=== PATIENT | female | born 1935 | race Caucasian/White ===

== ENCOUNTER 2016-09-13 21:23 | Observation (INO) ==
--- NOTE | 2016-09-13 21:37 | Emergency Department Note ---
Disposition Clinical Impression: CAD (coronary artery disease), CHF (congestive heart failure), Diabetes, CKD ( chronic kidney disease) stage 3, GFR 30-59 ml/min, Atrial fibrillation with RVR , Chest pain, Frail elderly, Obesity, Hypoxemia, History of COPD Disposition: Admitted As Inpatient Condition: Fair Referrals: NO,PCP [Non-Partnered Physician] - Forms: ED Satisfaction Letter General Adult HPI - General Chief complaint: ED Chest Pain Stated complaint: "/sob/chest pain" - History of Present Illness HPI Narrative: 81-year-old female reports to the ED via EMS, there is concern for shortness of breath. The patient does not usually wear oxygen, and on their arrival, they noticed the patient's oxygen saturation was 83%. They gave the patient a breathing treatment and placed her on oxygen, her oxygen level went up to 95%. The patient reportedly has a history of CAD, CHF, atrial fibrillation, and diabetes with a reported history of COPD however the patient is not being treated for lung problems. She was brought in from her personal residence. The patient describes midsternal chest pain that does not radiate. There is no history of syncope or recent injury. No leg swelling or pain. No coughing up blood. The patient denies any abdominal pain vomiting or diarrhea. There is no history of acute confusion. Patient denies any difficulty moving her arms or legs. There is no history of slurred speech or weakness or numbness in any of the arms or legs. No rashes or fevers or significant cough. There is no history of acute back pain or urinary symptoms. - Related Data Home Medications Medication Instructions Recorded Confirmed Aspirin Enteric Coated [Aspirin EC] 81 mg PO QAM 04/26/15 04/06/16 Carvedilol [Coreg] 6.25 mg PO BID 04/26/15 04/06/16 Famotidine [Pepcid] 20 mg PO BID 04/26/15 04/06/16 Furosemide [Lasix] 40 mg PO QAM 04/26/15 04/06/16 Losartan [Cozaar] 50 mg PO BID 04/26/15 04/06/16 Metformin [Glucophage] 500 mg PO QAM 04/26/15 04/06/16 Rivaroxaban [Xarelto] 15 mg PO QPM 04/26/15 04/06/16 SitaGLIPtin [Januvia] 25 mg PO HS 04/26/15 04/06/16 Insulin Glargine [Lantus] 25 unit SQ HS 06/17/15 04/06/16 Diphenoxylate/Atropine [Lomotil 1 tab PO QID PRN 01/06/16 04/06/16 2.5 mg/0.025 mg] Pravastatin Sodium [Pravachol] 80 mg PO QPM 01/06/16 04/06/16 Albuterol Sulfate [Albuterol 2 puff IH Q4HR PRN 04/06/16 04/06/16 Inhaler] Amlodipine [Norvasc] 5 mg PO DAILY 04/06/16 04/06/16 Gabapentin [Neurontin] 300 mg PO TID 04/06/16 04/06/16 Previous Rx's Medication Instructions Recorded Ondansetron [Zofran] 8 mg PO Q8HR PRN #10 tablet 08/24/16 Allergies Allergy/AdvReac Type Severity Reaction Status Date / Time Amoxicillin [From Augmentin] AdvReac Diarrhea Verified 06/17/15 19:53 ciprofloxacin [From Cipro] AdvReac Vomiting Verified 06/17/15 19:53 clavulanic acid AdvReac Diarrhea Verified 06/17/15 19:53 [From Augmentin] doxycycline AdvReac Diarrhea Verified 06/17/15 19:53 lansoprazole AdvReac Diarrhea Verified 06/17/15 19:53 Sulfa (Sulfonamide AdvReac Vomiting Verified 06/17/15 19:53 Antibiotics) sulfamethoxazole AdvReac Diarrhea Verified 06/17/15 19:53 [From Bactrim] trimethoprim AdvReac Diarrhea Verified 06/17/15 19:53 All systems ED: reviewed and negative except as stated. 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 history - Social History Smoking Status: Never smoker Smokeless Tobacco Status: No Alcohol use: Reports: none Drug use: Reports: none Course Vital Signs Temperature 97.2 F L 09/13/16 21:28 Pulse Rate 137 09/13/16 21:28 Respiratory Rate 16 09/13/16 21:28 Blood Pressure 134/104 09/13/16 21:28 O2 Sat by Pulse Oximetry 93 L 09/13/16 21:28 Temperature 97.2 F L 09/13/16 21:28 Pulse Rate 137 09/13/16 21:33 Respiratory Rate 16 09/13/16 21:33 Blood Pressure 111/75 09/13/16 21:33 O2 Sat by Pulse Oximetry 93 L 09/13/16 21:33 Oxygen Delivery Oxygen Delivery Nasal Cannula Medical Decision Making - MDM Narrative Medical decision making narrative: The patient is elderly with multiple comorbidities including CHF CAD diabetes, her initial oxygen saturations at home were 83% on room air. There is a report that patient has COPD, however her previous documentation does not list this on her recent admission, she is not taking medications for lung problems at home. The patient denies any usual oxygen requirement. The patient was given a nebulizer treatment per EMS and some oxygen, she has maintained her oxygen saturation the mid 90s here. Her EKG showed atrial fibrillation with rapid ventricular response with a rate in the 130s, in the ED her rate went down to 85 spontaneously and then bounced back up into the 110 range. Initially I was going to give her Cardizem, but on review with the hospitalist we decided Lopressor a single dose 5 mg and be appropriate. The patient is experiencing some nondescript chest pain she is currently on Xeralto, aspirin was ordered. Solu-Medrol was also ordered. The patient remains alert at this time, she appears to be stable. I have consulted with the hospitalist who has accepted the patient to their care. The patient is pending admission. - Lab Data Lab results reviewed: Yes I reviewed the patient's lab results. Result diagrams: 09/13/16 22:20 09/13/16 22:20 Lab Results 09/13/16 09/13/16 09/13/16 Range/Units 22:20 22:20 22:20 WBC 12.6 H (4.3-11.1) K/mcL RBC 4.18 (3.82-4.97) M/mcL Hgb 11.6 (11.5-15.4) g/dL Hct 36.0 (35.3-44.9) % MCV 86.1 (83.0-100.0) fL MCH 27.8 L (28.0-33.3) pg MCHC 32.2 (31.6-35.5) g/dL RDW 14.0 (11.5-14.5) % Plt Count 219 (140-400) K/mcL MPV 10.9 (9.4-12.4) fL Immature Gran % 0.7 (0-4) % Seg Neutrophils % 84.8 % Lymphocytes % 8.5 % Monocytes % 4.9 % Eosinophils % 0.8 % Basophils % 0.3 % Neutrophils # 10.6 H (1.6-8.9) K/mcL Lymphocytes # 1.1 (0.6-4.6) K/mcL Monocytes # 0.6 (0.0-1.3) K/mcL Eosinophils # 0.1 (0.0-0.6) K/mcL Basophils # 0.0 (0.0-0.2) K/mcL Immature Plt Fraction 7.0 H (1.1-6.1) % PT (9.4-12.1) Seconds INR APTT (26.0-36.0) Seconds Sodium 136 (136-145) mEq/L Potassium 4.3 (3.5-4.5) mEq/L Chloride 101 (98-109) mEq/L Carbon Dioxide 26 (19-29) mEq/L BUN 24 H (7-20) mg/dL Creatinine 1.45 H (0.57-1.11) mg/dL Est GFR ( Amer) 42 L (> 60) Est GFR (Non-Af Amer) 35 L (> 60) BUN/Creatinine Ratio 17 (6-26) Glucose 219 H (70-99) mg/dL Calculated Osmolality 293 (280-300) Lactic Acid 1.4 (0.5-2.2) mmol/L Calcium 9.2 (8.6-10.8) mg/dL Total Bilirubin 0.6 (0.2-1.2) mg/dL Direct Bilirubin 0.3 (0.0-0.5) mg/dL Indirect Bilirubin 0.3 (0.0-1.2) mg/dL AST 44 H (5-34) Units/L ALT 45 (0-55) Units/L Alkaline Phosphatase 87 (38-126) Units/L Troponin I (0-0.03) ng/mL C-Reactive Protein 7 H (Less than 5) mg/L B-Natriuretic Peptide (0-100) pg/mL Serum Total Protein 7.5 (6.0-8.3) g/dL Albumin 3.6 (3.5-5.0) g/dL Globulin 3.9 H (2.4-3.5) g/dL Albumin/Globulin Ratio 0.9 L (1.1-2.2) Beta-Hydroxybutyric Acd 0.28 H (0.02-0.27) mmol/L 09/13/16 09/13/16 09/13/16 Range/Units 22:20 22:20 22:20 WBC (4.3-11.1) K/mcL RBC (3.82-4.97) M/mcL Hgb (11.5-15.4) g/dL Hct (35.3-44.9) % MCV (83.0-100.0) fL MCH (28.0-33.3) pg MCHC (31.6-35.5) g/dL RDW (11.5-14.5) % Plt Count (140-400) K/mcL MPV (9.4-12.4) fL Immature Gran % (0-4) % Seg Neutrophils % % Lymphocytes % % Monocytes % % Eosinophils % % Basophils % % Neutrophils # (1.6-8.9) K/mcL Lymphocytes # (0.6-4.6) K/mcL Monocytes # (0.0-1.3) K/mcL Eosinophils # (0.0-0.6) K/mcL Basophils # (0.0-0.2) K/mcL Immature Plt Fraction (1.1-6.1) % PT 19.0 H (9.4-12.1) Seconds INR 1.7 APTT 37.4 H (26.0-36.0) Seconds Sodium (136-145) mEq/L Potassium (3.5-4.5) mEq/L Chloride (98-109) mEq/L Carbon Dioxide (19-29) mEq/L BUN (7-20) mg/dL Creatinine (0.57-1.11) mg/dL Est GFR ( Amer) (> 60) Est GFR (Non-Af Amer) (> 60) BUN/Creatinine Ratio (6-26) Glucose (70-99) mg/dL Calculated Osmolality (280-300) Lactic Acid (0.5-2.2) mmol/L Calcium (8.6-10.8) mg/dL Total Bilirubin (0.2-1.2) mg/dL Direct Bilirubin (0.0-0.5) mg/dL Indirect Bilirubin (0.0-1.2) mg/dL AST (5-34) Units/L ALT (0-55) Units/L Alkaline Phosphatase (38-126) Units/L Troponin I 0.01 (0-0.03) ng/mL C-Reactive Protein (Less than 5) mg/L B-Natriuretic Peptide 293 H (0-100) pg/mL Serum Total Protein (6.0-8.3) g/dL Albumin (3.5-5.0) g/dL Globulin (2.4-3.5) g/dL Albumin/Globulin Ratio (1.1-2.2) Beta-Hydroxybutyric Acd (0.02-0.27) mmol/L - Radiology Data Radiology results reviewed: Yes I reviewed the patient's radiology results.
[2016-09-13] MEDS ORDERED: Aspirin 325 MG TABLET PO ONE (22:08)
[2016-09-13 22:27] LABS: Basophils % 0.3 %; Eosinophils # 0.1 K/mcL (0.0-0.6); Eosinophils % 0.8 %; Hemoglobin 11.6 g/dL (11.5-15.4); Immature Granulocytes % 0.7 % (0-4); Lymphocytes # 1.1 K/mcL (0.6-4.6); Lymphocytes % 8.5 %; Mean Corpuscular HGB Conc 32.2 g/dL (31.6-35.5); Mean Corpuscular Hemoglobin 27.8 pg (28.0-33.3); Mean Corpuscular Volume 86.1 fL (83.0-100.0); Mean Platelet Volume 10.9 fL (9.4-12.4); Monocytes # 0.6 K/mcL (0.0-1.3); Monocytes % 4.9 %; Neutrophils # 10.6 K/mcL (1.6-8.9); Platelet Count 219 K/mcL (140-400); Red Blood Count 4.18 M/mcL (3.82-4.97); Segmented Neutrophils % 84.8 %
[2016-09-13 22:32] LABS: Beta-Hydroxybutyric Acid 0.28 mmol/L (0.02-0.27); INR 1.7
[2016-09-13 22:34] LABS: Activated Partial Thrombo Time 37.4 Seconds (26.0-36.0)
[2016-09-13 22:41] LABS: Albumin 3.6 g/dL (3.5-5.0); Albumin/Globulin Ratio 0.9 (1.1-2.2); Bilirubin,Direct 0.3 mg/dL (0.0-0.5); Bilirubin,Indirect 0.3 mg/dL (0.0-1.2); Bilirubin,Total 0.6 mg/dL (0.2-1.2); Calcium 9.2 mg/dL (8.6-10.8); Globulin 3.9 g/dL (2.4-3.5); Potassium 4.3 mEq/L (3.5-4.5); Total Protein 7.5 g/dL (6.0-8.3)
[2016-09-13] MEDS ORDERED: methylPREDNISolone 125 MG/2 ML VIAL IVP ONE (22:57)
[2016-09-13] MEDS ORDERED: *HR* Metoprolol 5 MG/5 ML VIAL IVP ONE (23:21)
[2016-09-14] MEDS ORDERED: Furosemide 40 MG/4 ML VIAL IVP ONE (02:34)
[2016-09-14] MEDS ORDERED: D5% in Water 1,000 ML IV PRN (02:36)
[2016-09-14] MEDS ORDERED: Dextrose Gel 15 GM PO PRN ×2 (02:36)
[2016-09-14] MEDS ORDERED: *HR* Dextrose 50 % in Water (Syg) 50 ML SYRINGE IVP PRN (02:36)
--- NOTE | 2016-09-14 02:55 | Internal Med History&Physical ---
<Kaitlin Motley - Last Filed: 09/14/16 02:56> Date of Encounter: 09/14/16 Time of Encounter: 02:00 Assessment and Plan (1) Acute CHF Current visit: Yes Status: Acute Patient came in with SOB that started earlier in the evening. When EMS arrived, her oxygen sat was in the 80s. last echo on 06/18/15 showed LVEF of 50% with normal LV systolic function, evidence of mild diastolic dysfunction of LV, mild LV hypertrophy, moderately enlarged atrial size. CXR showed cardiomegaly with evidence of acute CHF. hold BB echo pending. 40mg IV lasix BID 1.5L fluid restriction daily. strict I/O. Qualifiers: Congestive heart failure type: systolic Qualified Code(s): I50.21 - Acute systolic (congestive) heart failure (2) Atrial fibrillation with RVR Current visit: Yes Status: Acute Etiology likely due to acute CHF IV lopressor PRN for sustained HR > 120. HR now normal. Continue to monitor. check TSH. (3) Chest pain Current visit: Yes Status: Acute Etiology likely due to Afib RVR. Troponin negative. Continue to monitor Q6HR. Qualifiers: Chest pain type: other chest pain Qualified Code(s): R07.89 - Other chest pain; R07.8 - Other chest pain (4) History of COPD Current visit: Yes Status: Acute Oxygen PRN DuoNeb Q6HR PRN (5) CAD (coronary artery disease) Current visit: Yes Status: Chronic Continue ASA continue statin once home med list verified. Qualifiers: Coronary Disease-Associated Artery/Lesion type: bypass graft [place] vs. transplanted heart: unspecified whether [place] or transplanted heart Associated angina: angina presence unspecified Qualified Code(s): I25.810 - Atherosclerosis of coronary artery bypass graft(s) without angina pectoris (6) CKD (chronic kidney disease) stage 3, GFR 30-59 ml/min Current visit: Yes Status: Chronic stable. Cr measured at 1.45, which is slightly higher than baseline. Continue to monitor. (7) Diabetes Current visit: Yes Status: Chronic low dose sliding scale insulin ACHS accuchecks. Qualifiers: Diabetes mellitus type: type 2 Diabetes mellitus complication status: with unspecified complications Diabetes mellitus usp insulin use: unspecified usp insulin use status Qualified Code(s): E11.8 - Type 2 diabetes mellitus with unspecified complications (8) DVT prophylaxis Current visit: Yes Status: Acute continue Xarelto for Afib Internal Medicine - H&P: HPI Chief complaint: shortness of breath Admitted From: Emergency Dept Plans for Post Hospital Care: Home History of present illness: Ms. 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 Patient does not wear any oxygen at home. Patient came in with CC of SOB and chest pain that started earlier in the evening. SHe had 9/10 chest pain located mid chest with no radiation. The chest pain subsided after she came to the ED. Because of the chest pain and SOB, her daughter called the squad and she was brought to the ER. When the squad came, her oxygen sat was 83%. After breathing treatment and supplemental oxygen, her oxygen sat came back up to 95%. Patient is a poor historian and was by herself during examination. Patient denies nausea, vomiting , diarrhea, fever, chills. Social Hx: lives at home with daughter, is . Not a current smoker and has never smoked. Denies alcohol or illicit drug use. Past Med Surg Social Fam HX - Past Medical History Medical history: atrial fibrillation, CHF, COPD, coronary artery disease, dementia, diabetes, hypertension Psychiatric history: anxiety, bipolar, depression - Past Surgical History Surgical History: coronary bypass (CABG) - Social History Smoking Status: Never smoker Smokeless Tobacco Status: No Alcohol use: none Drug use: none Current living situation: With Family - Family History Paternal Hx Family Cardiac Disorders: Yes (HTN, CT,) Hx Family Respiratory Disorders: No Hx Family Cancer: Yes Hx Family GI Disorders: No Hx Family Endocrine Disorder: Yes (DM) Hx Family Neuromuscular Disorders: No Hx Family Neurologic Disorders: No Hx Family HEENT Disorders: No Hx Family Autoimmune Disorders: No Internal Medicine - H&P: Meds Aspirin Enteric Coated [Aspirin EC] 81 mg PO QAM 04/26/15 [History] Carvedilol [Coreg] 6.25 mg PO BID 04/26/15 [History] Famotidine [Pepcid] 20 mg PO BID 04/26/15 [History] Furosemide [Lasix] 40 mg PO QAM 04/26/15 [History] Losartan [Cozaar] 50 mg PO BID 04/26/15 [History] Metformin [Glucophage] 500 mg PO QAM 04/26/15 [History] Rivaroxaban [Xarelto] 15 mg PO QPM 04/26/15 [History] SitaGLIPtin [Januvia] 25 mg PO HS 04/26/15 [History] Insulin Glargine [Lantus] 25 unit SQ HS 06/17/15 [History] Diphenoxylate/Atropine [Lomotil 2.5 mg/0.025 mg] 1 tab PO QID PRN 01/06/16 [ History] Pravastatin Sodium [Pravachol] 80 mg PO QPM 01/06/16 [History] Albuterol Sulfate [Albuterol Inhaler] 2 puff IH Q4HR PRN 04/06/16 [History] Amlodipine [Norvasc] 5 mg PO DAILY 04/06/16 [History] Gabapentin [Neurontin] 300 mg PO TID 04/06/16 [History] Ondansetron [Zofran] 8 mg PO Q8HR PRN #10 tablet 08/24/16 [Rx] Allergies Amoxicillin [From Augmentin] Adverse Reaction (Verified 06/17/15 19:53) Diarrhea ciprofloxacin [From Cipro] Adverse Reaction (Verified 06/17/15 19:53) Vomiting clavulanic acid [From Augmentin] Adverse Reaction (Verified 06/17/15 19:53) Diarrhea doxycycline Adverse Reaction (Verified 06/17/15 19:53) Diarrhea lansoprazole Adverse Reaction (Verified 06/17/15 19:53) Diarrhea Sulfa (Sulfonamide Antibiotics) Adverse Reaction (Verified 06/17/15 19:53) Vomiting sulfamethoxazole [From Bactrim] Adverse Reaction (Verified 06/17/15 19:53) Diarrhea trimethoprim Adverse Reaction (Verified 06/17/15 19:53) Diarrhea - Constitutional Constitutional: falls, no anorexia, no chills, no fever(s) - Cardiovascular Cardiovascular ROS IM: chest pain, edema, palpitations, no diaphoresis, no syncope - Respiratory Respiratory: no hemoptysis - Gastrointestinal Gastrointestinal: no abdominal pain, no melena - Genitourinary Genitourinary: no hematuria - Neurological Neurological ROS: no abnormal speech - Psychiatric Psychiatric: no irritability - Constitutional Vitals: Temp Pulse Resp BP Pulse Ox 97.9 F 77 21 156/90 96 09/14/16 02:41 09/14/16 02:41 09/14/16 02:41 09/14/16 02:41 09/14/16 02:41 General appearance: Present: mild distress, A&O X 3, pleasant - Head Head exam: Present: atraumatic, normocephalic - Neck Neck exam general surgery: Present: supple, trachea midline - Respiratory Respiratory exam: Present: rales - Cardiovascular Cardiovascular exam: Present: irregular rhythm. Absent: JVD Additional comments: scar present down chest from CABG. - GI/Abdominal GI/Abdominal exam: Present: normal bowel sounds, tenderness Additional comments: scar present down lower abdomen. - Extremities Exam Extremities exam: Present: normal capillary refill, pedal edema (+2 pitting edema on right, +3 on left. All toes on left foot are amputated. ), radial pulses palpable and symetrical. Absent: cyanotic - Neurological Exam Neurological exam: Present: alert, oriented X3 Internal Med - H&P Results - Labs CBC & Chem 7: 09/13/16 22:20 09/13/16 22:20 - VTE Reasons for not Prescribing Prophylaxis: Not indicated-Anticoagulated or INR therapeutic <Beto Garcia - Last Filed: 09/14/16 07:44> Date of Encounter: 09/14/16 Assessment and Plan (1) Acute respiratory failure Current visit: Yes Status: Acute Secondary to acute exacerbation of CHF. Pt had O2 sats of 83% at presentation and improved with supplemental oxygen. Qualifiers: Respiratory failure complication: hypoxia Qualified Code(s): J96.01 - Acute respiratory failure with hypoxia Internal Medicine - H&P: HPI History of present illness: Ms. Low is a 81 year old female All Systems PM: A 10-system review of systems was performed and is negative for pertinent findings except as documented above in the HPI. - Constitutional Vitals: Temp Pulse Resp BP Pulse Ox 98.4 F 108 18 126/81 91 L 09/14/16 07:19 09/14/16 07:19 09/14/16 07:19 09/14/16 07:19 09/14/16 07:19 Internal Med - H&P Results - Labs CBC & Chem 7: 09/14/16 06:35 09/14/16 06:35 Labs: Short CBC 09/14/16 Range/Units 06:35 WBC 8.3 (4.3-11.1) K/mcL Hgb 11.8 (11.5-15.4) g/dL Hct 36.5 (35.3-44.9) % Plt Count 206 (140-400) K/mcL Neutrophils # 7.7 (1.6-8.9) K/mcL BMP 09/14/16 06:35 Sodium 137 Potassium 4.7 H Chloride 100 Carbon Dioxide 25 BUN 24 H Creatinine 1.57 H Glucose 292 H Calcium 9.6 Cardiac Enzymes 09/14/16 Range/Units 06:35 Troponin I 0.00 (0-0.03) ng/mL - Attending Attestation I examined this patient and my medical decision-making was reviewed with the WELFARE ADVISER/PA/Advanced Practice Nurse/Resident Physician. I agree with the documented findings, disposition and treatment plan as described except to the extent set forth below. 81 year old female with PMHx of Afib (on Xarelto), DM, CKD3, CAD (s/p CABG), COPD - presented with shortness of breath and chest pain. O2 sats at presentation to the ER was reportedly 83% on RA. O/E: Lower extremity edema, BNP is elevated, CXR is suggestive of CHF. EKG - A fib with RVR. Treat with IV lasix. Metoprolol IV PRN for RVR (Improved with Metoprolol IV). continue xarelto. supplemental O2. Consider Cardiology consultation. Check TSH
[2016-09-14] MEDS ORDERED: Ipratropium/Albuterol Neb 3 ML IH PRN (03:28)
[2016-09-14] MEDS ORDERED: Naloxone 0.4 MG/ML INJ IVP PRN (03:45)
[2016-09-14] MEDS ORDERED: Ondansetron 4 MG/2 ML VIAL IVP PRN (03:45)
[2016-09-14 07:19] LABS: Calcium 9.6 mg/dL (8.6-10.8); Magnesium 1.8 mg/dL (1.6-2.6); Potassium 4.7 mEq/L (3.5-4.5)
[2016-09-14 07:21] LABS: Basophils % 0.2 %; Eosinophils % 0.1 %; Hematocrit 36.5 % (35.3-44.9); Hemoglobin 11.8 g/dL (11.5-15.4); Immature Granulocytes % 0.7 % (0-4); Lymphocytes # 0.5 K/mcL (0.6-4.6); Lymphocytes % 5.9 %; Mean Corpuscular HGB Conc 32.3 g/dL (31.6-35.5); Mean Corpuscular Hemoglobin 27.8 pg (28.0-33.3); Mean Corpuscular Volume 85.9 fL (83.0-100.0); Monocytes # 0.1 K/mcL (0.0-1.3); Monocytes % 0.7 %; Neutrophils # 7.7 K/mcL (1.6-8.9); Platelet Count 206 K/mcL (140-400); Red Blood Count 4.25 M/mcL (3.82-4.97); Segmented Neutrophils % 92.4 %
[2016-09-14 07:41] LABS: Thyroid Stimulating Hormone 1.284 mcIU/mL (0.350-4.840)
[2016-09-14] MEDS: Aspirin Enteric Coated 81 MG Tablet PO SCH (08:26)
[2016-09-14] MEDS: Insulin LISPRO 300 UNITS/3 ML VIAL SQ SCH ×6 (08:27→21:16)
[2016-09-14] MEDS: Furosemide 20 MG/2 ML VIAL IVP SCH ×2 (08:28→21:15)
[2016-09-14 09:04] LABS: Bilirubin,Urine Negative (Negative); Blood,Urine Negative (Negative); Clarity,Urine Clear (Clear); Color,Urine Yellow (Yellow); Glucose,Urine (UA) >=1000 mg/dL (Normal); Ketones,Urine Negative (Negative); Leukocyte Esterase,Urine Negative (Negative); Nitrite,Urine Negative (Negative); Protein,Urine Trace mg/dL (Neg-Trace); Specific Gravity,Urine 1.011 (1.010-1.025); Urobilinogen,Urine Normal (Normal)
[2016-09-14 09:06] LABS: Bacteria,Urine None Seen per hpf (None-Few); Hyaline Casts,Urine None Seen per lpf (None-Few); Squamous Epithelial Cell,Urine Moderate per lpf (None-Few); WBC,Urine 0-3 per hpf (0-3)
--- NOTE | 2016-09-14 10:46 | Internal Med Progress Note ---
Date of Encounter: 09/14/16 Time of Encounter: 10:10 - Assessment and plan (1) Acute respiratory failure Current Visit: Yes Status: Acute Assessment and plan: Improved with supplemental O2 Continue O2 by TN Continuos pulse oximetry Qualifiers: Respiratory failure complication: hypoxia Qualified Code(s): J96.01 - Acute respiratory failure with hypoxia (2) Atrial fibrillation with RVR Current Visit: Yes Status: Acute Assessment and plan: Improved Resume home dose of Coreg, may need titration prn Lopressor 5mg IV prn HR >130 and sustaining BP is WNL Continue Xarelto (3) Chest pain Current Visit: Yes Status: Resolved Assessment and plan: Possibly secondary to Afib Troponin negative X3, EKG Afib with RVR Qualifiers: Chest pain type: other chest pain Qualified Code(s): R07.89 - Other chest pain; R07.8 - Other chest pain (4) History of COPD Current Visit: Yes Status: Chronic Assessment and plan: NO wheezing on exam Not in exacerbation Duonebs prn (5) CAD (coronary artery disease) Current Visit: Yes Status: Chronic Assessment and plan: Chronic, stable, resume home meds Qualifiers: Coronary Disease-Associated Artery/Lesion type: bypass graft [place] vs. transplanted heart: unspecified whether [place] or transplanted heart Associated angina: angina presence unspecified Qualified Code(s): I25.810 - Atherosclerosis of coronary artery bypass graft(s) without angina pectoris (6) Obesity Current Visit: Yes Status: Chronic Qualifiers: Obesity type: unspecified obesity type Obesity severity: unspecified obesity severity Qualified Code(s): E66.9 - Obesity, unspecified (7) CHF (congestive heart failure) Current Visit: Yes Status: Acute Assessment and plan: Acute on chronic Lower extremity edema, BNP is elevated, CXR is suggestive of CHF Possibly secondary to Afib with RVR Echo on 06/18/15 showed LVEF of 50% with normal LV systolic function, evidence of mild diastolic dysfunction of LV, mild LV hypertrophy, moderately enlarged atrial size. Follow repeat ECHO Continue lasix IV 20mg bid, increase prn, monitor renal function Daily weigh checks Strict intake and output monitoring Fluid restriction Continue home dose of Coreg, ARB, Statin Qualifiers: Congestive heart failure type: diastolic Congestive heart failure chronicity: acute on chronic Qualified Code(s): I50.33 - Acute on chronic diastolic (congestive) heart failure (8) CKD (chronic kidney disease) stage 3, GFR 30-59 ml/min Current Visit: Yes Status: Chronic Assessment and plan: CR and GFR stable (9) Diabetes Current Visit: Yes Status: Chronic Assessment and plan: Basal, Prandial and sliding scale insulin Qualifiers: Diabetes mellitus type: type 2 Diabetes mellitus complication status: with unspecified complications 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 exterminator insulin use: unspecified vermin exterminator insulin use status Qualified Code(s): E11.8 - Type 2 diabetes mellitus with unspecified complications - Subjective Interval history: 81 Y/O F [id number] Admitting diagnoses of acute on chronic CHF exacerbation, Afib with RVR, and chest pain Other PMH is significant for COPD, CAD, CKD III, DM, CHFpEF She is seen at bedside, denies new complains - Constitutional Vitals: Temp Pulse Resp BP Pulse Ox 98.4 F 108 18 126/81 93 L 09/14/16 07:19 09/14/16 07:19 09/14/16 07:19 09/14/16 07:19 09/14/16 08:36 General appearance: Present: mild distress, A&O X 3, pleasant - Head Head exam: Present: atraumatic, normocephalic - Eye Eye exam: Present: PERRL, conjuntiva pink, sclera anicteric Pupils: Present: PERRL - Neck Neck exam general surgery: Present: supple, trachea midline. Absent: lymphadenopathy - Respiratory Respiratory exam: Present: CTAB. Absent: rales, rhonchi - Cardiovascular Cardiovascular exam: Present: irregular rhythm, +S1, +S2, tachycardia - GI/Abdominal GI/Abdominal exam: Present: normal bowel sounds, soft, no peritoneal signs. Absent: distended, tenderness - Extremities Exam Extremities exam: Present: pedal edema (Trace pedal edema bilaterally) - Neurological Exam Neurological exam: Present: CN II-XII intact, oriented X3, no focal deficits. Absent: pronater drift, facial droop, speech deficit - Skin Skin exam: Present: dry, intact Internal Medicine: Result - Labs CBC & Chem 7: 09/14/16 06:35 09/14/16 06:35 Labs: Short CBC 09/14/16 Range/Units 06:35 WBC 8.3 (4.3-11.1) K/mcL Hgb 11.8 (11.5-15.4) g/dL Hct 36.5 (35.3-44.9) % Plt Count 206 (140-400) K/mcL Neutrophils # 7.7 (1.6-8.9) K/mcL BMP 09/14/16 06:35 Sodium 137 Potassium 4.7 H Chloride 100 Carbon Dioxide 25 BUN 24 H Creatinine 1.57 H Glucose 292 H Calcium 9.6 Cardiac Enzymes 09/14/16 Range/Units 06:35 Troponin I 0.00 (0-0.03) ng/mL Urine 09/14/16 Range/Units 08:50 Urine Color Yellow (Yellow) Urine Clarity Clear (Clear) Urine pH 6.0 (5.0-8.0) pH Units Ur Specific [place] 1.011 (1.010-1.025) Urine Protein Trace (Neg-Trace) mg/dL Urine Glucose (UA) >=1000 H (Normal) mg/dL - ABG Interpretation ABG results: PT/INR, D-dimer PT 19.0 Seconds (9.4-12.1) H 09/13/16 22:20 - VTE Reasons for not Prescribing Prophylaxis: Not indicated-Anticoagulated or INR therapeutic Consult Discharge Plan - Plan Referrals: Calixto Clinton DO [Primary Care Provider] - 09/21/16 1:30 pm (Please follow up as schedule....)
[2016-09-14] MEDS: Insulin DETEMIR 100 UNIT/ML X5UNITS SQ SCH ×2 (12:13→21:16)
[2016-09-14] MEDS: *HR* Metoprolol 5 MG/5 ML VIAL IVP PRN (12:13)
[2016-09-14] MEDS: *HR* Rivaroxaban 15 MG TABLET PO SCH (17:26)
--- NOTE | 2016-09-14 19:45 | Electrocardiograph Report ---
[address] [place] [address] Test Date: 2016-09-13 Pat Name: Narda Low Department: 105 Room: 2A55 Gender: F Hog Driver: : 1935 Requested By: Keo Lipscomb Order Number: [id number] Reading MD: Sin Otoole DO Measurements Intervals [place] Rate: 132 P: [place]: 0 QRS: 20 QRSD: 104 T: 97 QT: 319 QTc: 397 Interpretive Statements ATRIAL FIBRILLATION WITH RAPID VENTRICULAR RESPONSE POSSIBLE ANTERIOR MYOCARDIAL INFARCTION OF INDETERMINATE AGE POSSIBLE INFERIOR MYOCARDIAL INFARCTION, PROBABLY OLD Electronically Signed On 09-14-2016 19:42:49 EST by Sin Otoole DO
[2016-09-14] MEDS ORDERED: Famotidine 20 MG TABLET PO SCH (21:00)
[2016-09-14] MEDS: Famotidine 20 MG TABLET PO SCH (21:15)
[2016-09-14] MEDS: Acetaminophen 325 MG TABLET PO PRN (22:58)
[2016-09-15] MEDS: *HR* Metoprolol 5 MG/5 ML VIAL IVP PRN (00:14)
[2016-09-15 06:35] LABS: Basophils % 0.3 %; Eosinophils % 0.2 %; Hematocrit 33.6 % (35.3-44.9); Hemoglobin 10.9 g/dL (11.5-15.4); Immature Granulocytes % 0.8 % (0-4); Lymphocytes % 9.2 %; Mean Corpuscular HGB Conc 32.4 g/dL (31.6-35.5); Mean Corpuscular Hemoglobin 27.9 pg (28.0-33.3); Mean Corpuscular Volume 86.2 fL (83.0-100.0); Mean Platelet Volume 11.2 fL (9.4-12.4); Monocytes # 1.1 K/mcL (0.0-1.3); Monocytes % 6.8 %; Platelet Count 234 K/mcL (140-400); Red Cell Distribution Width 14.3 % (11.5-14.5); Segmented Neutrophils % 82.7 %
[2016-09-15 06:36] LABS: Basophils # 0.1 K/mcL (0.0-0.2); Lymphocytes # 1.4 K/mcL (0.6-4.6)
[2016-09-15 06:49] LABS: Calcium 9.7 mg/dL (8.6-10.8); Potassium 4.4 mEq/L (3.5-4.5)
--- NOTE | 2016-09-15 07:42 | ECHO - Doppler Report ---
Echocardiogram Name: Narda Low Date of Study: 09/14/2016 Date: 1935 Ht: 65.0 in Medical Record#: [id number] Age: 81 Wt: 198.0 lb Gender: Female BSA: 1.97 Order #: [id number] Location: [facility] Room #: [id number] Reading Physician: Denis Rivera MD, [facility] Second Steward: Heather Harris RDCS Ordering Physician: Kaitlin Motley DO Primary Physician: Calixto Clinton DO Indications: Acute CHF Impressions: Atrial fibrillation with RVR. Mild left ventricular systolic dysfunction, LVEF 45%. There is mild global LV hypokinesis. Indeterminate diastolic function due to atrial fibrillation. Normal right ventricular size and function. No significant valvular dysfunction. No evidence of pulmonary hypertension. Left Ventricular Wall Motion: Rest Echo Findings The apex, apical inferior, mid inferior, basal inferior, apical anterior, mid anterior, basal anterior, apical septal, mid inferior septal, basal inferior septal, apical lateral, mid anterior lateral, basal anterior lateral, mid anterior septal, mid inferior lateral, basal anterior septal and basal inferior lateral fisher were hypokinetic. Findings: Study Quality * Suboptimal echo windows. ECG Findings * Atrial fibrillation with RVR. Left Ventricle * Mild left ventricular systolic dysfunction, LVEF 45%. There is mild global LV hypokinesis. * Normal LV chamber size and wall thickness. * Indeterminate diastolic function due to atrial fibrillation. Right Ventricle * Normal right ventricular size and function. Left Atrium * Normal left atrial size. Right Atrium * Normal right atrial size. Aorta * Normally sized aortic root. Pericardium * There is no pericardial effusion present. IVC * The IVC is not well evaluated. Tricuspid Valve * Normal tricuspid valve structure. * No tricuspid stenosis. * Trace tricuspid regurgitation. * No evidence of pulmonary hypertension. Pulmonic Valve * Pulmonic valve is not well visualized. * No pulmonic stenosis. * Trace pulmonic regurgitation. Aortic Valve * Trileaflet aortic valve. * Mildly sclerotic aortic valve leaflets. * No aortic stenosis. * No aortic regurgitation. Mitral Valve * Mild mitral annular calcification * No mitral stenosis. * Trace mitral regurgitation. History Hypertension Diabetes Family History of CAD History of CAD/PTCA Coronary Artery Bypass Graft Congestive Heart Failure 06/18/2015 a Previous Echo was performed. Measurements: BP: 166/ 83 2D Normal Values RVIDd: 3.10 cm IVSd: .95 cm 0.6 - 1.0 cm LVIDd: 5.16 cm 3.7 - 5.6 cm LVPWd: 1.04 cm 0.6 - 1.1 cm LVIDs: 3.99 cm 1.5 - 3.6 cm AO: 3.00 cm < 4.0 cm LA volume: 46 Tricuspid Valve TV Regurg Peak Grad: 27.00mmHg TV Regurg Peak Ap: 2.60m/sec Updated by Denis Rivera MD, [facility] on 09/15/2016 7:34:20 AM electronically signed on 09/15/2016 7:35:22 AM with status of Final Wall Motion [place]: 1=Normal, 2=Hypokinesis, 3=Akinesis, 4=Dyskinesis, 5=Aneurysmal, 6=Hyperkinetic, X=Not Visualized (Blank)=Missing
[2016-09-15] MEDS: Insulin LISPRO 300 UNITS/3 ML VIAL SQ SCH ×7 (08:16→22:39)
[2016-09-15] MEDS: Furosemide 20 MG/2 ML VIAL IVP SCH ×2 (08:19→20:54)
[2016-09-15] MEDS: Aspirin Enteric Coated 81 MG Tablet PO SCH (08:19)
[2016-09-15] MEDS: Insulin DETEMIR 100 UNIT/ML X5UNITS SQ SCH ×2 (08:24→22:38)
--- NOTE | 2016-09-15 08:52 | Internal Med Progress Note ---
<LuisRaman moreno - Last Filed: 09/15/16 11:20> Date of Encounter: 09/15/16 Time of Encounter: 08:52 - Assessment and plan (1) Acute respiratory failure Current Visit: Yes Status: Acute Assessment and plan: 09/14/16 Improved with supplemental O2 C/ontinue O2 by ME Continuos pulse oximetry 09/15/16 Stable O2 sat 95% on room air Continue to treat CHF Qualifiers: Respiratory failure complication: hypoxia Qualified Code(s): J96.01 - Acute respiratory failure with hypoxia (2) Atrial fibrillation with RVR Current Visit: Yes Status: Acute Assessment and plan: 09/14/16 Improved Resume home dose of Coreg, may need titration prn Lopressor 5mg IV prn HR >130 and sustaining BP is WNL Continue Xarelto 09/15/16 Heart rate in 80s-90s on by mouth Coreg One dose Lopressor last night BP stable Continue Xarelto TSH normal (3) CHF (congestive heart failure) Current Visit: Yes Status: Acute Assessment and plan: 09/14/16 Acute on chronic Lower extremity edema, BNP is elevated, CXR is suggestive of CHF Possibly secondary to Afib with RVR Echo on 06/18/15 showed LVEF of 50% with normal LV systolic function, evidence of mild diastolic dysfunction of LV, mild LV hypertrophy, moderately enlarged atrial size. Follow repeat ECHO Continue lasix IV 20mg bid, increase prn, monitor renal function Daily weigh checks Strict intake and output monitoring Fluid restriction Continue home dose of Coreg, ARB, Statin 09/15/16 Repeat echo showed A. fib with RVR, mild LV systolic dysfunction, LVEF = 45%, indeterminant diastolic dysfunction due to A. fib Continue Lasix Creatinine this morning = 1.47 which is slightly above patient's baseline Continue strict I/O monitoring + fluid restriction Qualifiers: Congestive heart failure type: diastolic Congestive heart failure chronicity: acute on chronic Qualified Code(s): I50.33 - Acute on chronic diastolic (congestive) heart failure (4) CAD (coronary artery disease) Current Visit: Yes Status: Chronic Assessment and plan: 09/14/16 Chronic, stable, resume home meds Qualifiers: Coronary Disease-Associated Artery/Lesion type: bypass graft [place] vs. transplanted heart: unspecified whether [place] or transplanted heart Associated angina: angina presence unspecified Qualified Code(s): I25.810 - Atherosclerosis of coronary artery bypass graft(s) without angina pectoris (5) CKD (chronic kidney disease) stage 3, GFR 30-59 ml/min Current Visit: Yes Status: Chronic Assessment and plan: 09/14/16 CR and GFR stable (6) Diabetes Current Visit: Yes Status: Chronic Assessment and plan: 09/14/16 Basal, Prandial and sliding scale insulin 09/15/16 Blood glucose is stable Continue low-dose sliding scale Qualifiers: Diabetes mellitus type: type 2 Diabetes mellitus complication status: with unspecified complications Diabetes mellitus group home insulin use: unspecified group home insulin use status Qualified Code(s): E11.8 - Type 2 diabetes mellitus with unspecified complications (7) History of COPD Current Visit: Yes Status: Chronic Assessment and plan: 09/14/16 NO wheezing on exam Not in exacerbation Duonebs prn 09/15/16 Breathing much improved, O2 sats stable (8) Obesity Current Visit: Yes Status: Chronic Qualifiers: Obesity type: unspecified obesity type Obesity severity: unspecified obesity severity Qualified Code(s): E66.9 - Obesity, unspecified (9) Chest pain Current Visit: Yes Status: Resolved Assessment and plan: 09/14/16 Possibly secondary to Afib Troponin negative X3, EKG Afib with RVR 09/15/16 Resolved Qualifiers: Chest pain type: other chest pain Qualified Code(s): R07.89 - Other chest pain; R07.8 - Other chest pain - Subjective Interval history: Mrs. Low was seen and examined. She was sitting comfortably in bed and is still complaining of some shortness of breath although says this is much better relative to past couple of days. Denies other current complaints - Constitutional Vitals: Temp Pulse Resp BP Pulse Ox 97.6 F 82 16 142/81 99 09/15/16 07:22 09/15/16 07:22 09/15/16 07:22 09/15/16 07:22 09/15/16 07:22 General appearance: Present: mild distress, A&O X 3, pleasant - Head Head exam: Present: atraumatic, normocephalic - Eye Eye exam: Present: PERRL, conjuntiva pink, sclera anicteric - Neck Neck exam general surgery: Present: normal inspection, supple, trachea midline - Respiratory Respiratory exam: Present: CTAB, rales, rhonchi - Cardiovascular Cardiovascular exam: Present: irregular rhythm, +S1, +S2. Absent: diastolic murmur, gallop, rubs, tachycardia - GI/Abdominal GI/Abdominal exam: Present: soft. Absent: distended, tenderness - Extremities Exam Extremities exam: Present: pedal edema, warm Additional comments: trace pedal edema - Neurological Exam Neurological exam: Present: alert, CN II-XII intact, oriented X3, no focal deficits. Absent: pronater drift, facial droop, speech deficit - Skin Skin exam: Present: dry, intact Internal Medicine: Result - Labs CBC & Chem 7: 09/15/16 06:23 09/15/16 06:23 Labs: Short CBC 09/15/16 Range/Units 06:23 WBC 15.7 H D (4.3-11.1) K/mcL Hgb 10.9 L (11.5-15.4) g/dL Hct 33.6 L (35.3-44.9) % Plt Count 234 (140-400) K/mcL Neutrophils # 13.0 H (1.6-8.9) K/mcL BMP 09/15/16 06:23 Sodium 138 Potassium 4.4 Chloride 101 Carbon Dioxide 25 BUN 32 H Creatinine 1.47 H Glucose 219 H Calcium 9.7 Cardiac Enzymes 09/14/16 Range/Units 12:35 Troponin I 0.01 (0-0.03) ng/mL Urine 09/14/16 Range/Units 08:50 Urine Color Yellow (Yellow) Urine Clarity Clear (Clear) Urine pH 6.0 (5.0-8.0) pH Units Ur Specific [place] 1.011 (1.010-1.025) Urine Protein Trace (Neg-Trace) mg/dL Urine Glucose (UA) >=1000 H (Normal) mg/dL - ABG Interpretation ABG results: PT/INR, D-dimer PT 19.0 Seconds (9.4-12.1) H 09/13/16 22:20 - VTE Reasons for not Prescribing Prophylaxis: Not indicated-Anticoagulated or INR therapeutic Consult Discharge Plan - Plan Referrals: Calixto Clinton DO [Primary Care Provider] - 09/21/16 1:30 pm (Please follow up as schedule....) <Jerrell Rene - Last Filed: 09/15/16 16:07> Date of Encounter: 09/15/16 - Constitutional Vitals: Temp Pulse Resp BP Pulse Ox 97.5 F L 122 18 138/76 95 09/15/16 15:32 09/15/16 15:32 09/15/16 15:32 09/15/16 15:32 09/15/16 15:32 Internal Medicine: Result - Labs CBC & Chem 7: 09/15/16 06:23 09/15/16 06:23 Labs: Short CBC 09/15/16 Range/Units 06:23 WBC 15.7 H D (4.3-11.1) K/mcL Hgb 10.9 L (11.5-15.4) g/dL Hct 33.6 L (35.3-44.9) % Plt Count 234 (140-400) K/mcL Neutrophils # 13.0 H (1.6-8.9) K/mcL BMP 09/15/16 06:23 Sodium 138 Potassium 4.4 Chloride 101 Carbon Dioxide 25 BUN 32 H Creatinine 1.47 H Glucose 219 H Calcium 9.7 - ABG Interpretation ABG results: PT/INR, D-dimer PT 19.0 Seconds (9.4-12.1) H 09/13/16 22:20 - Attending Attestation Acute respiratory failure secondary to acute systolic CHF exacerbation exacerbated by atrial fibrillation with rapid ventricular response Increased dose of carvedilol from 6.25 up to 12.5 mg twice a day. Continue Lopressor IV as needed 5 mg every 5 minutes 3 doses for a heart rate of more than 130 Continue IV Lasix, may discharge in the morning if stable Continue Xarelto I examined this patient and my medical decision-making was reviewed with the [facility]/PA/Advanced Practice Nurse/Resident Physician. I agree with the documented findings, disposition and treatment plan as described except to the extent set forth below.
[2016-09-15] MEDS ORDERED: *HR* Metoprolol 5 MG/5 ML VIAL IVP PRN (16:01)
[2016-09-15] MEDS: *HR* Rivaroxaban 15 MG TABLET PO SCH (17:35)
[2016-09-15] MEDS: Famotidine 20 MG TABLET PO SCH (20:53)
[2016-09-15] MEDS: Acetaminophen 325 MG TABLET PO PRN (20:53)
[2016-09-16 07:05] LABS: Hematocrit 34.7 % (35.3-44.9); Hemoglobin 10.9 g/dL (11.5-15.4); Mean Corpuscular HGB Conc 31.4 g/dL (31.6-35.5); Mean Corpuscular Hemoglobin 28.7 pg (28.0-33.3); Mean Corpuscular Volume 91.3 fL (83.0-100.0); Platelet Count 171 K/mcL (140-400); Red Cell Distribution Width 14.7 % (11.5-14.5)
[2016-09-16 07:21] LABS: Calcium 9.6 mg/dL (8.6-10.8); Potassium 3.8 mEq/L (3.5-4.5)
[2016-09-16] MEDS: Insulin LISPRO 300 UNITS/3 ML VIAL SQ SCH ×4 (08:07→11:40)
[2016-09-16] MEDS: Furosemide 20 MG/2 ML VIAL IVP SCH (08:08)
[2016-09-16] MEDS: Aspirin Enteric Coated 81 MG Tablet PO SCH (08:08)
[2016-09-16] MEDS: Insulin DETEMIR 100 UNIT/ML X5UNITS SQ SCH (08:16)
--- NOTE | 2016-09-16 08:34 | Internal Med Progress Note ---
<Raman Smith - Last Filed: 09/16/16 08:31> Date of Encounter: 09/16/16 Time of Encounter: 08:31 - Assessment and plan (1) Acute respiratory failure Current Visit: Yes Status: Acute Assessment and plan: Secondary to acute systolic CHF exacerbation O2 sats maintaining in high 90s on 2 L nasal cannula Continue O2 Qualifiers: Respiratory failure complication: hypoxia Qualified Code(s): J96.01 - Acute respiratory failure with hypoxia (2) Atrial fibrillation with RVR Current Visit: Yes Status: Acute Assessment and plan: Tachycardic last night and this morning, 110s - 120s Dose of Coreg increased to 12.5 twice a day Continue Lopressor PRN, has not needed Continue to monitor (3) CHF (congestive heart failure) Current Visit: Yes Status: Acute Assessment and plan: Exacerbated by atrial fibrillation with rapid ventricular response Continue Lasix Continue to monitor I/O's Qualifiers: Congestive heart failure type: diastolic Congestive heart failure chronicity: acute on chronic Qualified Code(s): I50.33 - Acute on chronic diastolic (congestive) heart failure (4) CAD (coronary artery disease) Current Visit: Yes Status: Chronic Assessment and plan: Stable Continue home medications Qualifiers: Coronary Disease-Associated Artery/Lesion type: bypass graft [place] vs. transplanted heart: unspecified whether [place] or transplanted heart Associated angina: angina presence unspecified Qualified Code(s): I25.810 - Atherosclerosis of coronary artery bypass graft(s) without angina pectoris (5) CKD (chronic kidney disease) stage 3, GFR 30-59 ml/min Current Visit: Yes Status: Chronic Assessment and plan: Kidney function back to baseline (6) Diabetes Current Visit: Yes Status: Chronic Assessment and plan: Blood glucose is stable Continue low-dose sliding scale Qualifiers: Diabetes mellitus type: type 2 Diabetes mellitus complication status: with unspecified complications Diabetes mellitus superintendent terminal insulin use: unspecified custodial insulin use status Qualified Code(s): E11.8 - Type 2 diabetes mellitus with unspecified complications (7) History of COPD Current Visit: Yes Status: Chronic Assessment and plan: Breathing significantly improved, O2 sats stable (8) Obesity Current Visit: Yes Status: Chronic Qualifiers: Obesity type: unspecified obesity type Obesity severity: unspecified obesity severity Qualified Code(s): E66.9 - Obesity, unspecified (9) Chest pain Current Visit: Yes Status: Resolved Assessment and plan: Resolved Qualifiers: Chest pain type: other chest pain Qualified Code(s): R07.89 - Other chest pain; R07.8 - Other chest pain - Subjective Interval history: Mrs. Low was seen and examined. She was sitting comfortably in the side of her bed and states her shortness of breath is not bad, continues to improve. Denies chest pain, palpitations, other current complaints - Constitutional Vitals: Temp Pulse Resp BP Pulse Ox 97.5 F L 124 18 174/108 95 09/16/16 07:13 09/16/16 07:13 09/16/16 07:13 09/16/16 07:13 09/16/16 07:13 General appearance: Present: mild distress, A&O X 3, pleasant - Head Head exam: Present: atraumatic, normocephalic - Eye Eye exam: Present: PERRL, conjuntiva pink, sclera anicteric Pupils: Present: PERRL - Neck Neck exam general surgery: Present: supple, trachea midline. Absent: lymphadenopathy - Respiratory Respiratory exam: Present: CTAB. Absent: accessory muscle use, rales, rhonchi, wheezes - Cardiovascular Cardiovascular exam: Present: irregular rhythm, +S1, +S2. Absent: diastolic murmur, gallop, rubs, systolic murmur - GI/Abdominal GI/Abdominal exam: Present: normal bowel sounds, soft, no peritoneal signs. Absent: distended, tenderness - Extremities Exam Extremities exam: Present: warm, radial pulses palpable and symetrical. Absent : calf tenderness, cyanotic, pedal edema - Neurological Exam Neurological exam: Present: CN II-XII intact, oriented X3, no focal deficits. Absent: pronater drift, facial droop, speech deficit - Skin Skin exam: Present: dry, intact Internal Medicine: Result - Labs CBC & Chem 7: 09/16/16 06:33 09/16/16 06:33 Labs: Short CBC 09/16/16 Range/Units 06:33 WBC 10.1 (4.3-11.1) K/mcL Hgb 10.9 L (11.5-15.4) g/dL Hct 34.7 L (35.3-44.9) % Plt Count 171 (140-400) K/mcL BMP 09/16/16 06:33 Sodium 139 Potassium 3.8 Chloride 100 Carbon Dioxide 28 BUN 31 H Creatinine 1.30 H Glucose 103 H Calcium 9.6 - ABG Interpretation ABG results: PT/INR, D-dimer PT 19.0 Seconds (9.4-12.1) H 09/13/16 22:20 - VTE Reasons for not Prescribing Prophylaxis: Not indicated-Anticoagulated or INR therapeutic Consult Discharge Plan - Plan Instructions: Heart Failure (DC), Atrial Fibrillation (DC), Chronic Kidney Disease (GEN) Additional Instructions: Follow with primary care physician within the next 7 days. Increase dose of carvedilol up to 12.5 mg twice a day. Start Lasix 40 mg in the morning and 20 mg in the afternoon with potassium supplements. Referrals: Calixto Clinton DO [Primary Care Provider] - 09/21/16 1:30 pm (Please follow up as schedule....) Prescriptions: Acetaminophen w/Cod 300-30 mg [Tylenol w/Codeine #3] 1 tab PO Q4HR PRN #30 tablet PRN Reason: Pain Carvedilol [Coreg] 12.5 mg PO BIDWM #120 tablet <Jerrell Rene H - Last Filed: 09/16/16 14:32> Date of Encounter: 09/16/16 - Constitutional Vitals: Temp Pulse Resp BP Pulse Ox 97.6 F 75 18 135/87 97 09/16/16 11:09 09/16/16 11:09 09/16/16 11:09 09/16/16 11:09 09/16/16 11:09 Internal Medicine: Result - Labs CBC & Chem 7: 09/16/16 06:33 09/16/16 06:33 Labs: Short CBC 09/16/16 Range/Units 06:33 WBC 10.1 (4.3-11.1) K/mcL Hgb 10.9 L (11.5-15.4) g/dL Hct 34.7 L (35.3-44.9) % Plt Count 171 (140-400) K/mcL [facility] 09/16/16 06:33 Sodium 139 Potassium 3.8 Chloride 100 Carbon Dioxide 28 BUN 31 H Creatinine 1.30 H Glucose 103 H Calcium 9.6 - ABG Interpretation ABG results: PT/INR, D-dimer PT 19.0 Seconds (9.4-12.1) H 09/13/16 22:20 - Attending Attestation the patient is being discharged today
[2016-09-16 11:10] VITALS: BP 135/87
--- NOTE | 2016-09-16 11:44 | Discharge Summary ---
<LuisRaman moreno - Last Filed: 09/16/16 11:41> Date of Encounter: 09/16/16 Time of Encounter: 11:42 - Discharge Diagnosis (1) Acute respiratory failure Status: Acute Qualifiers: Respiratory failure complication: hypoxia Qualified Code(s): J96.01 - Acute respiratory failure with hypoxia (2) Atrial fibrillation with RVR Status: Acute (3) CHF (congestive heart failure) Status: Acute Qualifiers: Congestive heart failure type: diastolic Congestive heart failure chronicity: acute on chronic Qualified Code(s): I50.33 - Acute on chronic diastolic (congestive) heart failure (4) CAD (coronary artery disease) Status: Chronic Qualifiers: Coronary Disease-Associated Artery/Lesion type: bypass graft [place] vs. 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 use status Qualified Code(s): E11.8 - Type 2 diabetes mellitus with unspecified complications (7) History of COPD Status: Chronic (8) Obesity Status: Chronic Qualifiers: Obesity type: unspecified obesity type Obesity severity: unspecified obesity severity Qualified Code(s): E66.9 - Obesity, unspecified (9) Chest pain Status: Resolved Qualifiers: Chest pain type: other chest pain Qualified Code(s): R07.89 - Other chest pain; R07.8 - Other chest pain - Discharge Medications Prescriptions: Acetaminophen w/Cod 300-30 mg [Tylenol w/Codeine #3] 1 tab PO Q4HR PRN #30 tablet PRN Reason: Pain Carvedilol [Coreg] 12.5 mg PO BIDWM #120 tablet Home Medications: Aspirin Enteric Coated [Aspirin EC] 81 mg PO QAM 04/26/15 [History] Famotidine [Pepcid] 20 mg PO BID 04/26/15 [History] Furosemide [Lasix] 40 mg PO QAM 04/26/15 [History] Losartan [Cozaar] 50 mg PO BID 04/26/15 [History] Metformin [Glucophage] 500 mg PO QAM 04/26/15 [History] Rivaroxaban [Xarelto] 15 mg PO QPM 04/26/15 [History] SitaGLIPtin [Januvia] 25 mg PO HS 04/26/15 [History] Insulin Glargine [Lantus] 25 unit SQ HS 06/17/15 [History] Diphenoxylate/Atropine [Lomotil 2.5 mg/0.025 mg] 1 tab PO QID PRN 01/06/16 [ History] Pravastatin Sodium [Pravachol] 80 mg PO QPM 01/06/16 [History] Albuterol Sulfate [Albuterol Inhaler] 2 puff IH Q4HR PRN 04/06/16 [History] Amlodipine [Norvasc] 5 mg PO DAILY 04/06/16 [History] Gabapentin [Neurontin] 300 mg PO TID 04/06/16 [History] Ondansetron [Zofran] 8 mg PO Q8HR PRN #10 tablet 08/24/16 [Rx] Albuterol Neb [Proventil Neb] 2.5 mg IH QID 09/14/16 [History] Acetaminophen w/Cod 300-30 mg [Tylenol w/Codeine #3] 1 tab PO Q4HR PRN #30 tablet 09/16/16 [Rx] Carvedilol [Coreg] 12.5 mg PO BIDWM #120 tablet 09/16/16 [Rx] Allergies/Adverse Reactions: Allergies Amoxicillin [From Augmentin] Adverse Reaction (Verified 06/17/15 19:53) Diarrhea ciprofloxacin [From Cipro] Adverse Reaction (Verified 06/17/15 19:53) Vomiting clavulanic acid [From Augmentin] Adverse Reaction (Verified 06/17/15 19:53) Diarrhea doxycycline Adverse Reaction (Verified 06/17/15 19:53) Diarrhea lansoprazole Adverse Reaction (Verified 06/17/15 19:53) Diarrhea Sulfa (Sulfonamide Antibiotics) Adverse Reaction (Verified 06/17/15 19:53) Vomiting sulfamethoxazole [From Bactrim] Adverse Reaction (Verified 06/17/15 19:53) Diarrhea trimethoprim Adverse Reaction (Verified 06/17/15 19:53) Diarrhea Procedures/tests Complete & Pending: Procedures Performed prior 72 hours Category Date Time Status EV echocardiogram Routine Y 09/14/16 03:41 Completed Date of admission: 09/14/16 00:28 Primary care physician: Francy Pendleton Consults: 09/14/16 03:47 Consult to Occupational Therapy [CONS] Routine Comment: Evaluate, develop and implement POC Consult to Physical Therapy [CONS] Routine Comment: Evaluate, develop and implement POC - Patient Status Disposition: Home, Self-Care Condition: Fair - Discharge Instructions Follow Up With: Calixto Clinton, [Primary Care Provider] - 09/21/16 1:30 pm (Please follow up as schedule....) Additional Instructions: Follow with primary care physician within the next 7 days. Increase dose of carvedilol up to 12.5 mg twice a day. Start Lasix 40 mg in the morning and 20 mg in the afternoon with potassium supplements. Interval History: Ms. Low is doing well today. Her chest pain has entirely resolved and her breathing is significantly improved. She has no new complaints Hospital course: Ms. Low is a 81 year old female who presented to the ED 07/13 for shortness of breath and chest pain. Her O2 sats at that time were down to 83%. She has a past medical history of COPD (not on home oxygen), A. fib (on Xarelto), type 2 diabetes, CKD III, and CAD S/P CABG. She had an echocardiogram during her hospital stay which showed A. fib with RVR, mild left ventricular systolic dysfunction, LVEF = 45%, and indeterminate diastolic dysfunction due to A. fib. This is mild worsening of previous echocardiogram (06/18/15) which showed normal left ventricular systolic dysfunction and an LVEF = 50%. She received IV Lasix, fluid restriction, and Coreg. She did not require IV Lopressor and her heart rate at time of discharge was in low 90s. Her kidney function did increase slightly from her baseline up to 1.57 however this returned to her baseline upon discharge at 1.3. We did send her home with a prescription for increased dose of her home Coreg which is now 12.5 mg twice a day. - Time Spent with Patient Total time spent providing and/or coordinating discharge services: - Constitutional Vitals: Temp Pulse Resp BP Pulse Ox 97.6 F 75 18 135/87 97 09/16/16 11:09 09/16/16 11:09 09/16/16 11:09 09/16/16 11:09 09/16/16 11:09 General appearance: Present: mild distress, A&O X 3, pleasant - Head Head exam: Present: atraumatic, normocephalic - Eye Eye exam: Present: PERRL, conjuntiva pink, sclera anicteric Pupils: Present: PERRL - Neck Neck exam general surgery: Present: supple, trachea midline. Absent: lymphadenopathy - Respiratory Respiratory exam: Present: CTAB. Absent: accessory muscle use, rales, rhonchi, wheezes - Cardiovascular Cardiovascular exam: Present: irregular rhythm, +S1, +S2. Absent: diastolic murmur, gallop, rubs, systolic murmur - GI/Abdominal GI/Abdominal exam: Present: normal bowel sounds, soft, no peritoneal signs. Absent: distended, tenderness - Extremities Exam Extremities exam: Present: warm, radial pulses palpable and symetrical. Absent : calf tenderness, cyanotic, pedal edema - Neurological Exam Neurological exam: Present: CN II-XII intact, oriented X3, no focal deficits. Absent: pronater drift, facial droop, speech deficit - Skin Skin exam: Present: dry, intact - VTE Reasons for not Prescribing Prophylaxis: Not indicated-Anticoagulated or INR therapeutic <Jerrell Rene H - Last Filed: 09/16/16 14:30> Date of Encounter: 09/16/16 Procedures/tests Complete & Pending: Procedures Performed prior 72 hours Category Date Time Status EV echocardiogram Routine Y 09/14/16 03:41 Completed Date of admission: 09/14/16 00:28 Primary care physician: Francy Pendleton Consults: 09/14/16 03:47 Consult to Occupational Therapy [CONS] Routine Comment: Evaluate, develop and implement POC Consult to Physical Therapy [CONS] Routine Comment: Evaluate, develop and implement POC - Patient Status Overall status at discharge: patient is progressing back to baseline - Diet and Activity Activity: increase activity as tolerated Diet: low fat, low cholesterol Hospital course: Ms. Low is a 81 year old female - Time Spent with Patient Total time spent providing and/or coordinating discharge services: - Constitutional Vitals: Temp Pulse Resp BP Pulse Ox 97.6 F 75 18 135/87 97 09/16/16 11:09 09/16/16 11:09 09/16/16 11:09 09/16/16 11:09 09/16/16 11:09 - Head Head exam: Present: atraumatic, normocephalic - Eye Eye exam: Present: PERRL, conjuntiva pink, sclera anicteric Pupils: Present: PERRL - Neck Neck exam general surgery: Present: supple, trachea midline. Absent: lymphadenopathy - Respiratory Respiratory exam: Present: CTAB. Absent: accessory muscle use, rales, rhonchi, wheezes - Cardiovascular Cardiovascular exam: Present: irregular rhythm, RRR, +S1, +S2. Absent: diastolic murmur, gallop, rubs, systolic murmur - GI/Abdominal GI/Abdominal exam: Present: normal bowel sounds, soft, no peritoneal signs. Absent: distended, tenderness - Extremities Exam Extremities exam: Present: warm, radial pulses palpable and symetrical. Absent : calf tenderness, cyanotic, pedal edema - Neurological Exam Neurological exam: Present: CN II-XII intact, oriented X3, no focal deficits. Absent: pronater drift, facial droop, speech deficit - Skin Skin exam: Present: dry, intact - Attending Attestation acute on chronic hypoxic respiratory failure secundary to acute diastolic CHF exacerbation possibly from atrial fibrillation with rapid ventricular response During her hospitalization the patient had measurements of inferior elevated heart rate, up to 136, it was detected that her heart rate was not accurately measured by the blood pressure device that was used during the floor and actually today is in the 80s he was taken manually. Patient is stable and denies any shortness of breath, no chest pain, no palpitations. She is a stable to be discharged home History of chronic kidney disease stage III Increase Lasix to 40 mg in the morning and 20 mg in the afternoon (prescription will be provided) Potassium 10 mEq daily will be prescribed Dose of Coreg was increased to 12.5 g twice daily.
== END 2016-09-16 15:01 | disposition home or self-care (01) ==
LOC: EMEROO 21:23 → 2ANU 21:23 → SUATTDRO 09-14 00:28 → 2ANU 09-14 02:18 → SUATTDRO 09-14 02:25 → 2ANU 09-16 14:09
PROVIDERS: ADMIT Internal Medicine; ATTEND Internal Medicine

== ENCOUNTER 2016-10-06 06:24 | Observation (INO) ==
--- NOTE | 2016-10-06 06:48 | Emergency Department Note ---
START Narrative - START START: Patient is an 81-year-old female who is brought in by EMS today for complaints of chest pain that began approximately 2300 last night diffuse substernal and nonradiating in nature. Patient denies any associated symptoms with this pain no diaphoresis no shortness of breath no abdominal pain no nausea vomiting no near-syncope or syncopal episodes. Patient has multiple comorbidities and was recently hospitalized in September for about of A. fib with RVR and is continued on Lopressor for these symptoms. Patient also on xarelto at home. Patient's has mild hypoxia on arrival but is in no acute respiratory distress. Patient can speak in full and complete sentences without tachypnea or conversational dyspnea. Patient states at that her family member who resides with her call 911 and not "I did not even want to come in today". Patient denies any recent illness or history of fluid loss or inability to tolerate her medications. Currently patient states that her pain has subsided completely and at this time is chest pain-free. Patient is asymptomatic at this time. Physical exam Gen. patient sitting with eyes closed but conversant without conversational dyspnea and follows commands. No acute distress HEENT head normal cephalic atraumatic eyes extraocular muscles intact pupils equal and reactive light and accommodation TMs are clear bilaterally mouth moist mucous membranes are for joint or directions are noted neck supple neck and posterior cervical adenopathy heart is irregularly irregular with rate at about 80 bpm. Patient with good distal pulses in both upper and lower extremities and equal bilaterally. Abdomen is soft nontender nondistended positive bowel sounds no evidence of any peritoneal changes on exam. Patient with 2+ pitting edema in the lower extremities bilaterally. It is noted that she has chronic palpitations of the toes on the left foot. No rash or skin breakdown is noted on exam. Patient is awake alert and oriented 4 with no focal neurologic deficits in speech is clear. Patient is currently being triaged, and IVs been established patient was placed on supplement oxygen by nasal cannula. Cardiac chest pain order set was entered , patient is currently pain-free. Patient will be signed out to the oncoming attending to resume further evaluation care and definitive disposition of the patient.
[2016-10-06 07:14] LABS: Basophils # 0.1 K/mcL (0.0-0.2); Basophils % 0.7 %; Eosinophils # 0.1 K/mcL (0.0-0.6); Eosinophils % 1.7 %; Hemoglobin 11.3 g/dL (11.5-15.4); Immature Granulocytes % 0.7 % (0-4); Lymphocytes # 1.3 K/mcL (0.6-4.6); Lymphocytes % 16.7 %; Mean Corpuscular HGB Conc 32.3 g/dL (31.6-35.5); Mean Corpuscular Hemoglobin 27.4 pg (28.0-33.3); Mean Platelet Volume 11.3 fL (9.4-12.4); Monocytes # 0.5 K/mcL (0.0-1.3); Monocytes % 6.9 %; Neutrophils # 5.6 K/mcL (1.6-8.9); Platelet Count 202 K/mcL (140-400); Red Blood Count 4.12 M/mcL (3.82-4.97); Red Cell Distribution Width 14.1 % (11.5-14.5); Segmented Neutrophils % 73.3 %
[2016-10-06 07:27] LABS: INR 1.6
[2016-10-06 07:29] LABS: Activated Partial Thrombo Time 31.2 Seconds (26.0-36.0); Calcium 8.8 mg/dL (8.6-10.8); Potassium 4.6 mEq/L (3.5-4.5)
--- NOTE | 2016-10-06 07:32 | Emergency Department Note ---
Disposition Clinical Impression: Chest pain Qualifiers: Chest pain type: unspecified Qualified Code(s): R07.9 - Chest pain, unspecified Disposition: Admitted As Inpatient Condition: Fair Referrals: Calixto Clinton DO [Primary Care Provider] - Forms: ED Satisfaction Letter Time of Disposition: 07:41 Chest Pain HPI - General Chief Complaint: ED Chest Pain Stated Complaint: Chest Pain/left arm pain Time Seen by Provider: 10/06/16 06:26 Source: patient Mode of arrival: wheelchair Limitations: no limitations Vital Signs Reviewed: Yes Nursing Notes Reviewed: Yes - History of Present Illness HPI Narrative: 81-year-old female who comes in with a history of chest pain last night lasted for about an hour. Patient does have a history of previous SC in the past. She is had no recent workup for chest pain. 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 Onset: during rest Pain Location: substernal, left chest Severity: now resolved Severity scale (1-10): 3 Quality: tightness, aching Pain Radiation: none Improves with: nothing Worsens with: nothing Associated symptoms: Denies: nausea, vomiting, diaphoresis Treatments prior to arrival chest pain: none - Related Data Home Medications Medication Instructions Recorded Confirmed Aspirin Enteric Coated [Aspirin EC] 81 mg PO QAM 04/26/15 10/06/16 Furosemide [Lasix] 40 mg PO QAM 04/26/15 10/06/16 Losartan [Cozaar] 50 mg PO BID 04/26/15 10/06/16 Metformin [Glucophage] 500 mg PO QAM 04/26/15 10/06/16 Rivaroxaban [Xarelto] 15 mg PO QPM 04/26/15 10/06/16 SitaGLIPtin [Januvia] 25 mg PO HS 04/26/15 10/06/16 Insulin Glargine [Lantus] 30 unit SQ HS 06/17/15 10/06/16 Diphenoxylate/Atropine [Lomotil 1 tab PO QID PRN 01/06/16 10/06/16 2.5 mg/0.025 mg] Pravastatin Sodium [Pravachol] 80 mg PO QPM 01/06/16 10/06/16 Albuterol Sulfate [Albuterol 2 puff IH Q4HR PRN 04/06/16 10/06/16 Inhaler] Amlodipine [Norvasc] 5 mg PO DAILY 04/06/16 10/06/16 Gabapentin [Neurontin] 300 mg PO TID 04/06/16 10/06/16 Albuterol Neb [Proventil Neb] 2.5 mg IH QID 09/14/16 10/06/16 Colestipol HCl [Colestid] 2 gm PO BID PRN 10/06/16 10/06/16 Ferrous Sulfate [Iron] 325 mg PO DAILY 10/06/16 10/06/16 Furosemide [Lasix] 20 mg PO QPM 10/06/16 10/06/16 Pantoprazole Sodium [Protonix] 40 mg PO DAILY 10/06/16 10/06/16 Previous Rx's Medication Instructions Recorded Ondansetron [Zofran] 8 mg PO Q8HR PRN #10 tablet 08/24/16 Acetaminophen w/Cod 300-30 mg 1 tab PO Q4HR PRN #30 tablet 09/16/16 [Tylenol w/Codeine #3] Carvedilol [Coreg] 12.5 mg PO BIDWM #120 tablet 09/16/16 Potassium Chloride [Klor-Con 10 meq PO DAILY #30 capsule.er 09/16/16 Sprinkle] Allergies Allergy/AdvReac Type Severity Reaction Status Date / Time Amoxicillin [From Augmentin] AdvReac Diarrhea Verified 06/17/15 19:53 ciprofloxacin [From Cipro] AdvReac Vomiting Verified 06/17/15 19:53 clavulanic acid AdvReac Diarrhea Verified 06/17/15 19:53 [From Augmentin] doxycycline AdvReac Diarrhea Verified 06/17/15 19:53 lansoprazole AdvReac Diarrhea Verified 06/17/15 19:53 Sulfa (Sulfonamide AdvReac Vomiting Verified 06/17/15 19:53 Antibiotics) sulfamethoxazole AdvReac Diarrhea Verified 06/17/15 19:53 [From Bactrim] trimethoprim AdvReac Diarrhea Verified 06/17/15 19:53 Constitutional: Denies: fever, chills, weakness, weight change Eyes: Denies: eye pain, eye discharge, vision change ENT ED: Denies: ear pain, throat pain, dental pain, hearing loss, epistaxis, congestion, dysphagia Cardiovascular: Reports: chest pain. Denies: palpitations, dyspnea on exertion , edema, syncope Respiratory: Denies: cough, dyspnea, wheezes, hemoptysis, stridor Gastrointestinal: Denies: abdominal pain, nausea, vomiting, diarrhea, constipation, hematemesis, melena, hematochezia Genitourinary: Denies: dysuria, frequency, hematuria, discharge Musculoskeletal: Denies: back pain, neck pain, arthralgia, myalgia Integumentary: Denies: rash, abrasion, lesions Neurological: Denies: headache, weakness, numbness, paresthesias, confusion, abnormal gait, vertigo Psychiatric: Denies: anxiety, depression, suicidal thoughts, homicidal thoughts , auditory hallucinations, visual hallucinations Endocrine: Denies: fatigue Hematological/Lymphatic: Denies: easy bleeding, easy bruising Allergic/Immunologic: Denies: facial swelling, urticaria Chest Pain PMH - Past Medical History Medical history: Reports: atrial fibrillation, CHF, COPD, coronary artery disease, dementia, diabetes, hypertension Surgical history: Reports: coronary bypass (CABG) Psychiatric history: Reports: anxiety, bipolar, depression SAFETY LEAD history: Reports: no SAFETY LEAD history - Social History Smoking Status: Never smoker Alcohol use: Reports: none Drug use: Reports: none Physical Exam - General Limitations: no limitations General appearance: alert, in no apparent distress - Head Head exam: atraumatic, normocephalic, normal inspection - Eye Eye exam: Present: normal appearance, PERRL, EOMI - ENT ENT exam: normal exam, normal oropharynx, mucous membranes moist - Neck Neck exam: Present: normal inspection, full ROM, trachea midline - Chest Chest inspection: Present: normal inspection, symmetric chest wall rise - Respiratory Respiratory exam: Present: normal lung sounds bilaterally - Cardiovascular Cardiovascular exam: Present: regular rate, normal rhythm, normal heart sounds - Abdominal Exam Abdominal exam: Present: soft, Non-Tender. Absent: tenderness, distention, guarding, rebound, rigidity - Extremities Exam Extremities exam: Present: normal inspection, full ROM. Absent: tenderness, pedal edema - Expanded Lower Extremity Exam Neurovascular/Tendon exam: Absent: motor deficit, sensory deficit, tendon deficit Gait: observed and normal - Back Exam Back exam: Present: normal inspection, full ROM. Absent: tenderness - Neurological Exam Neurological exam: Present: alert, oriented X3 - Psychiatric Psychiatric exam: Present: normal affect, normal mood - Skin Skin exam: Present: warm, dry, intact, normal color Course - Reevaluation(s) Reevaluation #1: 81-year-old who comes in complaining of chest pain was seen by shiftman initially. Her troponin is negative no acute findings on her EKG. Patient will be admitted for further evaluation and treatment. Time: 07:41 - Consultations Consultation #1: Discussed with , admit. Time: 08:31 Vital Signs Temperature 97.0 F L 10/06/16 06:25 Pulse Rate 87 10/06/16 06:25 Respiratory Rate 24 10/06/16 06:25 Blood Pressure 139/100 10/06/16 06:25 O2 Sat by Pulse Oximetry 90 L 10/06/16 06:25 Temperature 97.0 F L 10/06/16 06:25 Pulse Rate 74 10/06/16 08:00 Respiratory Rate 16 10/06/16 08:00 Blood Pressure 133/76 10/06/16 08:00 O2 Sat by Pulse Oximetry 97 10/06/16 08:00 Oxygen Delivery Oxygen Delivery Nasal Cannula Chest Pain - Lab Data Lab results reviewed: Yes I reviewed the patient's lab results. Result diagrams: 10/06/16 07:05 10/06/16 07:05 Lab Results 10/06/16 10/06/16 10/06/16 Range/Units 07:05 07:05 07:05 WBC 7.7 (4.3-11.1) K/mcL RBC 4.12 (3.82-4.97) M/mcL Hgb 11.3 L (11.5-15.4) g/dL Hct 35.0 L (35.3-44.9) % MCV 85.0 D (83.0-100.0) fL MCH 27.4 L (28.0-33.3) pg MCHC 32.3 (31.6-35.5) g/dL RDW 14.1 (11.5-14.5) % Plt Count 202 (140-400) K/mcL MPV 11.3 (9.4-12.4) fL Immature Gran % 0.7 (0-4) % Seg Neutrophils % 73.3 % Lymphocytes % 16.7 % Monocytes % 6.9 % Eosinophils % 1.7 % Basophils % 0.7 % Neutrophils # 5.6 (1.6-8.9) K/mcL Lymphocytes # 1.3 (0.6-4.6) K/mcL Monocytes # 0.5 (0.0-1.3) K/mcL Eosinophils # 0.1 (0.0-0.6) K/mcL Basophils # 0.1 (0.0-0.2) K/mcL PT 18.0 H (9.4-12.1) Seconds INR 1.6 APTT 31.2 (26.0-36.0) Seconds Sodium (136-145) mEq/L Potassium (3.5-4.5) mEq/L Chloride (98-109) mEq/L Carbon Dioxide (19-29) mEq/L BUN (7-20) mg/dL Creatinine (0.57-1.11) mg/dL Est GFR ( Amer) (> 60) Est GFR (Non-Af Amer) (> 60) BUN/Creatinine Ratio (6-26) Glucose (70-99) mg/dL Calculated Osmolality (280-300) Calcium (8.6-10.8) mg/dL Troponin I (0-0.03) ng/mL B-Natriuretic Peptide 454 H (0-100) pg/mL 10/06/16 10/06/16 Range/Units 07:05 07:05 WBC (4.3-11.1) K/mcL RBC (3.82-4.97) M/mcL Hgb (11.5-15.4) g/dL Hct (35.3-44.9) % MCV (83.0-100.0) fL MCH (28.0-33.3) pg MCHC (31.6-35.5) g/dL RDW (11.5-14.5) % Plt Count (140-400) K/mcL MPV (9.4-12.4) fL Immature Gran % (0-4) % Seg Neutrophils % % Lymphocytes % % Monocytes % % Eosinophils % % Basophils % % Neutrophils # (1.6-8.9) K/mcL Lymphocytes # (0.6-4.6) K/mcL Monocytes # (0.0-1.3) K/mcL Eosinophils # (0.0-0.6) K/mcL Basophils # (0.0-0.2) K/mcL PT (9.4-12.1) Seconds INR APTT (26.0-36.0) Seconds Sodium 131 L (136-145) mEq/L Potassium 4.6 H (3.5-4.5) mEq/L Chloride 95 L (98-109) mEq/L Carbon Dioxide 27 (19-29) mEq/L BUN 30 H (7-20) mg/dL Creatinine 1.62 H (0.57-1.11) mg/dL Est GFR ( Amer) 37 L (> 60) Est GFR (Non-Af Amer) 31 L (> 60) BUN/Creatinine Ratio 19 (6-26) Glucose 176 H (70-99) mg/dL Calculated Osmolality 282 (280-300) Calcium 8.8 (8.6-10.8) mg/dL Troponin I 0.00 (0-0.03) ng/mL B-Natriuretic Peptide (0-100) pg/mL - Radiology Data Radiology results reviewed: Yes I reviewed the patient's radiology results. Chest X-Ray 10/06/16 06:26 IMPRESSION: No acute abnormality. D/ / Maksim Jimenez MD / Maksim Jimenez MD Interpreting Provider: Maksim Jimenez MD - EKG Data EKG attestation: Yes I reviewed and interpreted this EKG. Rhythm: A.Fib, A. flutter Doss/QRS: normal Voltage: increased voltage throughout When compared to previous EKG there are: no significant changes Interpretation: no acute changes Heart Score - Score History: Moderately Suspicious EKG: Non Specific repolarisation Disturbance Age: Greater than 65 Risk Factors: Equal/Greater than 3 risk factor or history of atherosclerotic disease Troponin: Less than normal limit HEART Score Total: 6
[2016-10-06] MEDS ORDERED: (Colestipol Hcl [Colestid] 2 GM) PO PRN (11:21)
[2016-10-06] MEDS ORDERED: *HR* Acetaminophen w/Cod 300-30 mg 1 TAB TABLET PO PRN (11:21)
[2016-10-06] MEDS ORDERED: Acetaminophen 325 MG TABLET PO PRN (11:23)
[2016-10-06] MEDS ORDERED: Naloxone 0.4 MG/ML INJ IVP PRN (11:23)
[2016-10-06] MEDS ORDERED: Ondansetron 4 MG/2 ML VIAL IVP PRN (11:23)
--- NOTE | 2016-10-06 11:35 | Internal Med History&Physical ---
Date of Encounter: 10/06/16 Time of Encounter: 10:00 Assessment and Plan (1) Precordial chest pain Current visit: Yes Status: Acute Given history of CAD and CABG Will place the patient on observation. Monitor on telemetry. Trend troponin. If she rules out for ACS will obtain a stress test for risk stratification. She is at high risk for ACS given hypertension diabetes and CAD. (2) Permanent atrial fibrillation Current visit: Yes Status: Acute She is rate controlled with carvedilol. Continue this. Continue anticoagulation with Xarelto. (3) Anticoagulation adequate with anticoagulant therapy Current visit: Yes Status: Acute continue Xarelto (4) Diabetes mellitus type 2, insulin dependent Current visit: Yes Status: Acute Check hemoglobin A1c. We will provide Levemir and insulin NovoLog. Accu-Cheks 4 times daily. (5) Abnormal EKG Current visit: Yes Status: Acute (6) DVT prophylaxis Current visit: No Status: Acute Fully anticoagulated with Xarelto (7) CKD (chronic kidney disease) stage 3, GFR 30-59 ml/min Current visit: No Status: Chronic Avoid nephrotoxins. Adjust medication dosing according to GFR. Internal Medicine - H&P: HPI Chief complaint: Chest pain Admitted From: Emergency Dept Plans for Post Hospital Care: Home History of present illness: Ms. Low is a 81 year old female with multiple medical comorbidities including coronary artery disease, hypertension, diabetes and atrial fibrillation who presented to the hospital for evaluation of chest pain. She reports substernal, aching like, 5/10 chest pain that occurred early this morning. Lasted for about 20 minutes. She denies any associated nausea or shortness of breath and diaphoresis. The pain improved with rest and trying to go to sleep. She was brought to the emergency department where an initial workup was nonrevealing. A 10 point review of systems was performed. Positives as above additional positive for hearing impairment and chronic lower extremity swelling. Otherwise negative. Past medical history as above Past surgical history: CABG. Family history positive for coronary artery disease in patient's mother will cost away of [place] in her 80s. Social history patient denies tobacco alcohol and drug use. She lives with her daughter. She is independent. Ambulates with a walker. Past Med Surg Social Fam HX - Past Medical History Medical history: atrial fibrillation, CHF, COPD, coronary artery disease, dementia, diabetes, hypertension Psychiatric history: anxiety, bipolar, depression - Past Surgical History Surgical History: coronary bypass (CABG) - Social History Smoking Status: Never smoker Smokeless Tobacco Status: No Alcohol use: none Drug use: none - Family History Paternal Hx Family Cardiac Disorders: Yes (HTN, [place],) Hx Family Respiratory Disorders: No Hx Family Cancer: Yes Hx Family GI Disorders: No Hx Family Endocrine Disorder: Yes (DM) Hx Family Neuromuscular Disorders: No Hx Family Neurologic Disorders: No Hx Family HEENT Disorders: No Hx Family Autoimmune Disorders: No Internal Medicine - H&P: Meds Aspirin Enteric Coated [Aspirin EC] 81 mg PO QAM 04/26/15 [History] Furosemide [Lasix] 40 mg PO QAM 04/26/15 [History] Losartan [Cozaar] 50 mg PO BID 04/26/15 [History] Metformin [Glucophage] 500 mg PO QAM 04/26/15 [History] Rivaroxaban [Xarelto] 15 mg PO QPM 04/26/15 [History] SitaGLIPtin [Januvia] 25 mg PO HS 04/26/15 [History] Insulin Glargine [Lantus] 30 unit SQ HS 06/17/15 [History] Diphenoxylate/Atropine [Lomotil 2.5 mg/0.025 mg] 1 tab PO QID PRN 01/06/16 [ History] Pravastatin Sodium [Pravachol] 80 mg PO QPM 01/06/16 [History] Albuterol Sulfate [Albuterol Inhaler] 2 puff IH Q4HR PRN 04/06/16 [History] Amlodipine [Norvasc] 5 mg PO DAILY 04/06/16 [History] Gabapentin [Neurontin] 300 mg PO TID 04/06/16 [History] Ondansetron [Zofran] 8 mg PO Q8HR PRN #10 tablet 08/24/16 [Rx] Albuterol Neb [Proventil Neb] 2.5 mg IH QID 09/14/16 [History] Acetaminophen w/Cod 300-30 mg [Tylenol w/Codeine #3] 1 tab PO Q4HR PRN #30 tablet 09/16/16 [Rx] Carvedilol [Coreg] 12.5 mg PO BIDWM #120 tablet 09/16/16 [Rx] Potassium Chloride [Klor-Con Sprinkle] 10 meq PO DAILY #30 capsule.er 09/16/16 [ Rx] Colestipol HCl [Colestid] 2 gm PO BID PRN 10/06/16 [History] Ferrous Sulfate [Iron] 325 mg PO DAILY 10/06/16 [History] Furosemide [Lasix] 20 mg PO QPM 10/06/16 [History] Pantoprazole Sodium [Protonix] 40 mg PO DAILY 10/06/16 [History] Allergies Amoxicillin [From Augmentin] Adverse Reaction (Verified 06/17/15 19:53) Diarrhea ciprofloxacin [From Cipro] Adverse Reaction (Verified 06/17/15 19:53) Vomiting clavulanic acid [From Augmentin] Adverse Reaction (Verified 06/17/15 19:53) Diarrhea doxycycline Adverse Reaction (Verified 06/17/15 19:53) Diarrhea lansoprazole Adverse Reaction (Verified 06/17/15 19:53) Diarrhea Sulfa (Sulfonamide Antibiotics) Adverse Reaction (Verified 06/17/15 19:53) Vomiting sulfamethoxazole [From Bactrim] Adverse Reaction (Verified 06/17/15 19:53) Diarrhea trimethoprim Adverse Reaction (Verified 06/17/15 19:53) Diarrhea All Systems PM: A 10-system review of systems was performed and is negative for pertinent findings except as documented above in the HPI. - Constitutional Vitals: Temp Pulse Resp BP Pulse Ox 97.0 F L 65 18 140/77 98 10/06/16 06:25 10/06/16 11:00 10/06/16 11:00 10/06/16 11:00 10/06/16 11:00 - Eye Eye exam: Present: PERRL, conjuntiva pink, sclera anicteric Pupils: Present: PERRL - Respiratory Respiratory exam: Present: CTAB. Absent: accessory muscle use, rales, rhonchi, wheezes - Cardiovascular Cardiovascular exam: Present: irregular rhythm, +S1, +S2. Absent: diastolic murmur, gallop, rubs, systolic murmur - GI/Abdominal GI/Abdominal exam: Present: normal bowel sounds, soft, no peritoneal signs. Absent: distended, tenderness - Extremities Exam Extremities exam: Present: pedal edema (2+ lower extremity bilateral pitting edema), warm, radial pulses palpable and symetrical. Absent: calf tenderness, cyanotic - Neurological Exam Neurological exam: Present: CN II-XII intact, oriented X3, no focal deficits. Absent: pronater drift, facial droop, speech deficit - Skin Skin exam: Present: dry, intact Internal Med - H&P Results - Labs CBC & Chem 7: 10/06/16 07:05 10/06/16 07:05 - EKG Data -: EKG Interpreted by Myself (A. fib with ventricular rate 78 bpm, T-wave inversions and leads 1 and aVL)
[2016-10-06] MEDS: amLODIPine 5 MG TABLET PO SCH (12:16)
[2016-10-06] MEDS: Albuterol 2.5 MG/3 ML NEBULIZER IH SCH ×3 (13:00→21:42)
[2016-10-06] MEDS ORDERED: D5% in Water 1,000 ML IV PRN (14:01)
[2016-10-06] MEDS ORDERED: *HR* Dextrose 50 % in Water (Syg) 50 ML SYRINGE IVP PRN (14:01)
[2016-10-06] MEDS ORDERED: Dextrose Gel 15 GM PO PRN ×2 (14:01)
--- NOTE | 2016-10-06 14:24 | Electrocardiograph Report ---
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
[2016-10-06] MEDS: Gabapentin 300 MG CAPSULE PO SCH ×2 (16:24→20:21)
[2016-10-06] MEDS: Furosemide 20 MG TABLET PO SCH (17:50)
[2016-10-06] MEDS: Insulin LISPRO 300 UNITS/3 ML VIAL SQ SCH ×2 (17:50)
[2016-10-06] MEDS: *HR* Rivaroxaban 15 MG TABLET PO SCH (17:50)
[2016-10-06] MEDS: *HR* SitaGLIPtin 25 MG TABLET PO SCH (20:21)
[2016-10-06] MEDS: Insulin DETEMIR 100 UNIT/ML X5UNITS SQ SCH (22:25)
[2016-10-07 05:18] LABS: Basophils % 0.3 %; Eosinophils # 0.1 K/mcL (0.0-0.6); Hematocrit 31.7 % (35.3-44.9); Hemoglobin 9.9 g/dL (11.5-15.4); Immature Granulocytes % 0.7 % (0-4); Lymphocytes # 1.3 K/mcL (0.6-4.6); Lymphocytes % 21.6 %; Mean Corpuscular HGB Conc 31.2 g/dL (31.6-35.5); Mean Corpuscular Volume 86.4 fL (83.0-100.0); Mean Platelet Volume 11.5 fL (9.4-12.4); Monocytes # 0.6 K/mcL (0.0-1.3); Monocytes % 9.3 %; Neutrophils # 4.1 K/mcL (1.6-8.9); Platelet Count 181 K/mcL (140-400); Red Blood Count 3.67 M/mcL (3.82-4.97); Red Cell Distribution Width 14.3 % (11.5-14.5); Segmented Neutrophils % 66.1 %
[2016-10-07 05:40] LABS: INR 1.7; Prothrombin Time 18.4 Seconds (9.4-12.1)
[2016-10-07 05:51] LABS: Calcium 8.7 mg/dL (8.6-10.8); Magnesium 1.9 mg/dL (1.6-2.6); Potassium 4.2 mEq/L (3.5-4.5)
[2016-10-07] MEDS ORDERED: Regadenoson 0.4 MG/5 ML SYRINGE IVP ONE (06:21)
--- NOTE | 2016-10-07 10:08 | ECHO - Doppler Report ---
Limited Echocardiogram Name: Narda Low Date of Study: 10/07/2016 Date: 1935 Ht: 65.0 in Medical Record#: [id number] Age: 81 Wt: 207.0 lb Gender: Female BSA: 2.01 Order #: [id number] Location: [facility] Room #: 3B12 Reading Physician: Sara Tyson DO Dust Sampler: Jesus Ortega RDCS Ordering Physician: Cliff Goodson MD Primary Physician: Calixto Clinton DO Indications: Chest pain Impressions: LVEF 35-40%. Moderate global reduction in LV systolic function. Left Ventricular Wall Motion: Rest Echo Findings The apex, apical inferior, mid inferior, basal inferior, apical anterior, mid anterior, basal anterior, apical septal, mid inferior septal, basal inferior septal, apical lateral, mid anterior lateral, basal anterior lateral, mid anterior septal, mid inferior lateral, basal anterior septal and basal inferior lateral fisher were hypokinetic. Findings: Study Quality * Technically adequate exam. ECG Findings * Atrial fibrillation. Left Ventricle * LVEF 35-40%. * Normal LV size. Right Ventricle * RV not well evaluated. History Hypertension Diabetes Family History of CAD History of CAD/PTCA Coronary Artery Bypass Graft 09/14/16 a Previous Echo was performed. Measurements: BP: 128/ 77 2D Normal Values IVSd: .73 cm 0.6 - 1.0 cm LVIDd: 4.91 cm 3.7 - 5.6 cm LVPWd: .71 cm 0.6 - 1.1 cm LVIDs: 4.04 cm 1.5 - 3.6 cm AO: 2.50 cm < 4.0 cm LA: 4.40 cm 2.0 - 4.0cm %FS: 17.70 cm >25 % LA volume: Updated by Sara Tyson on 10/07/2016 10:03:18 AM electronically signed on 10/07/2016 10:04:40 AM with status of Final Wall Motion [place]: 1=Normal, 2=Hypokinesis, 3=Akinesis, 4=Dyskinesis, 5=Aneurysmal, 6=Hyperkinetic, X=Not Visualized (Blank)=Missing
[2016-10-07] MEDS: Albuterol 2.5 MG/3 ML NEBULIZER IH SCH ×4 (10:37→21:25)
[2016-10-07] MEDS ORDERED: Furosemide 40 MG/4 ML VIAL IVP ONE (12:25)
[2016-10-07] MEDS: Insulin LISPRO 300 UNITS/3 ML VIAL SQ SCH ×6 (12:27→19:34)
--- NOTE | 2016-10-07 12:33 | Cardiology Consult Note ---
Date of Encounter: 10/07/16 Time of Encounter: 12:20 Assessment and Plan (1) Systolic dysfunction Current Visit: Yes Status: Acute EF 45% dating back to December 2014. TTE 09/14/15 demonstrated LVEF 45% with mild global hypokinesis. Repeat limited echocardiogram today shows LVEF 35-40%; I reviewed TTE images with Dr. Tyson; this is a very poor quality study--recommend repeating TTE in the outpatient study with definity. Mild volume overload upon exam, will give IV lasix x1 dose now. Strict I&O, daily weights, and Na/fluid restriction diet. Continue current CV medications including betablocker (coreg), ARB, and diuretic. Follow-up in the outpatient setting with Dr. Tyson as scheduled. (2) CAD (coronary artery disease) Current Visit: Yes Status: Chronic Hx of CAD s/p 3v CABG. [facility] 08/2012: s/p 3 of 3 patent bypass grafts (SVG-PDA, SVG-1st diag, SVG-mLAD). Presented with atypical chest pain symptoms, troponin negative x3. Reviewed nuclear stress images with Dr. Tyson--mild distal anteroseptal ischemia , gated EF 54%; this represents a low risk finding. Recommend medical management, will add low dose Imdur; continue asa, statin, betablocker. Follow-up with Dr. Tyson--appointment scheduled in early October. Qualifiers: Coronary Disease-Associated Artery/Lesion type: bypass graft [place] vs. transplanted heart: [place] heart Associated angina: with stable angina Qualified Code(s): I25.708 - Atherosclerosis of coronary artery bypass graft(s) , unspecified, with other forms of angina pectoris (3) Atrial fibrillation Current Visit: No Status: Chronic Rate controlled on oral betablocker. Anticoagulated on Xarelto 15 mg daily (renally adjusted dose). Patient resides at home with daughter. Qualifiers: Atrial fibrillation type: permanent Qualified Code(s): I48.2 - Chronic atrial fibrillation Discussion w patient/family: The assessment and plan as outlined above was discussed with the patient and/or family members who expressed understanding and agreement. All questions were answered. Thank you for involving us in the care of your patient. Please call with any questions. The patient will be discussed and reviewed with Dr. Otoole; changes to be made accordingly. History of Present Illness Consult date: 10/07/16 Requesting physician: Cheri Broderick Consult reason: decreased EF Chief complaint: Chest pain History of present illness: Ms. Low is a 81 year old female with PMH significant for atrial fibrillation , CKD, CAD s/p CABG, HTN, and HLD who presented to the ED with complaints of chest pain. She is noted to be a poor historian, HPI also obtained from H&P. She reports she is unsure why she came to the ED, may have had "chest soreness. " Upon arrival to ED, troponin was negative. No ischemic ECG changes were noted. She denies recurrent chest discomfort since admission. She underwent nuclear stress test today. Prior CV testing includes: TTE 09/14/16: EF 45% (af with rvr), mild global LV hypokinesis, no significant valvular dysfunction TTE 12/31/14: EF 45% mild global hypokinesis, mild cLVH, moderate LVDD [facility] 08/29/12: s/p 3 of 3 patent bypass grafts--SVG to R PDA, SVG 1st diag, SVG to mLAD; 40% proximal and mid LCx stenosis Past Med Surg Social Fam HX - Past Medical History Attestation: Yes The following information was validated with the patient. Source: patient, old records reviewed Medical history: atrial fibrillation, CHF, COPD, coronary artery disease, dementia, diabetes, hypertension Psychiatric history: anxiety, bipolar, depression - Past Surgical History Surgical History: coronary bypass (CABG) - Social History Smoking Status: Never smoker Smokeless Tobacco Status: No Alcohol use: none Drug use: none Current living situation: With Family Activity Level: Uses cane/walker - Family History Paternal Hx Family Cardiac Disorders: Yes (HTN, [place],) Hx Family Respiratory Disorders: No Hx Family Cancer: Yes Hx Family GI Disorders: No Hx Family Endocrine Disorder: Yes (DM) Hx Family Neuromuscular Disorders: No Hx Family Neurologic Disorders: No Hx Family HEENT Disorders: No Hx Family Autoimmune Disorders: No Medications and Allergies Aspirin Enteric Coated [Aspirin EC] 81 mg PO QAM 04/26/15 [History] Furosemide [Lasix] 40 mg PO QAM 04/26/15 [History] Losartan [Cozaar] 50 mg PO BID 04/26/15 [History] Metformin [Glucophage] 500 mg PO QAM 04/26/15 [History] Rivaroxaban [Xarelto] 15 mg PO QPM 04/26/15 [History] SitaGLIPtin [Januvia] 25 mg PO HS 04/26/15 [History] Insulin Glargine [Lantus] 30 unit SQ HS 06/17/15 [History] Diphenoxylate/Atropine [Lomotil 2.5 mg/0.025 mg] 1 tab PO QID PRN 01/06/16 [ History] Pravastatin Sodium [Pravachol] 80 mg PO QPM 01/06/16 [History] Albuterol Sulfate [Albuterol Inhaler] 2 puff IH Q4HR PRN 04/06/16 [History] Amlodipine [Norvasc] 5 mg PO DAILY 04/06/16 [History] Gabapentin [Neurontin] 300 mg PO TID 04/06/16 [History] Ondansetron [Zofran] 8 mg PO Q8HR PRN #10 tablet 08/24/16 [Rx] Albuterol Neb [Proventil Neb] 2.5 mg IH QID 09/14/16 [History] Acetaminophen w/Cod 300-30 mg [Tylenol w/Codeine #3] 1 tab PO Q4HR PRN #30 tablet 09/16/16 [Rx] Carvedilol [Coreg] 12.5 mg PO BIDWM #120 tablet 09/16/16 [Rx] Potassium Chloride [Klor-Con Sprinkle] 10 meq PO DAILY #30 capsule.er 09/16/16 [ Rx] Colestipol HCl [Colestid] 2 gm PO BID PRN 10/06/16 [History] Ferrous Sulfate [Iron] 325 mg PO DAILY 10/06/16 [History] Furosemide [Lasix] 20 mg PO QPM 10/06/16 [History] Pantoprazole Sodium [Protonix] 40 mg PO DAILY 10/06/16 [History] Allergies Amoxicillin [From Augmentin] Adverse Reaction (Verified 06/17/15 19:53) Diarrhea ciprofloxacin [From Cipro] Adverse Reaction (Verified 06/17/15 19:53) Vomiting clavulanic acid [From Augmentin] Adverse Reaction (Verified 06/17/15 19:53) Diarrhea doxycycline Adverse Reaction (Verified 06/17/15 19:53) Diarrhea lansoprazole Adverse Reaction (Verified 06/17/15 19:53) Diarrhea Sulfa (Sulfonamide Antibiotics) Adverse Reaction (Verified 06/17/15 19:53) Vomiting sulfamethoxazole [From Bactrim] Adverse Reaction (Verified 06/17/15 19:53) Diarrhea trimethoprim Adverse Reaction (Verified 06/17/15 19:53) Diarrhea All Systems Review: A 10-system review of systems was performed and is negative for pertinent findings except as documented above in the HPI. - Cardiovascular Cardiovascular: as per HPI Physical Examination Vital Signs, Last 4 Hours Temp Pulse Resp BP Pulse Ox 10/07/16 11:19 97.5 F L 85 16 133/82 94 L General: Conversant, No Apparent Distress HEENT: Atraumatic, Normocephaly Cardiac: Other (irregularly irregular) Lungs: Other (few bibasilar wheezes) Abdomen: Soft Skin: No rashes noted on visualized skin Musculoskeletal: No Chest Wall Tenderness Extremities: Other (BLE pitting edema to mid rios, +2; amputated toes (x5 LLE)) Results 10/07/16 03:58 10/07/16 03:58 Lab Results 10/06/16 10/07/16 10/07/16 18:24 03:58 03:58 WBC 6.1 Hgb 9.9 L Hct 31.7 L Plt Count 181 INR 1.7 Sodium Potassium Chloride Carbon Dioxide BUN Creatinine Glucose Calcium Magnesium Troponin I 0.01 10/07/16 03:58 WBC Hgb Hct Plt Count INR Sodium 137 Potassium 4.2 Chloride 100 Carbon Dioxide 28 BUN 28 H Creatinine 1.47 H Glucose 89 Calcium 8.7 Magnesium 1.9 Troponin I Active Medications Acetaminophen (Tylenol) 650 mg PO Q6H PRN PRN Reason: Mild Pain (1-3) Stop: 04/07/17 11:24 Last Admin: 10/06/16 21:28 Dose: 650 mg Acetaminophen/Codeine Phosphate (Tylenol W/Codeine #3) 1 tab PO Q4H PRN PRN Reason: Moderate Pain Stop: 04/07/17 11:22 Albuterol Sulfate (Proventil Neb) 2.5 mg IH QID [facility] PRN Reason: Protocol Stop: 04/07/17 13:01 Last Admin: 10/07/16 10:37 Dose: Not Given Amlodipine Besylate (Norvasc) 5 mg PO DAILY [facility] PRN Reason: Protocol Stop: 04/07/17 11:31 Last Admin: 10/06/16 12:16 Dose: 5 mg Aspirin (Aspirin Ec) 81 mg PO QAM [facility] Stop: 04/08/17 09:01 Carvedilol (Coreg) 12.5 mg PO BIDWM [facility] PRN Reason: Protocol Stop: 04/07/17 17:01 Last Admin: 10/06/16 17:50 Dose: 12.5 mg Ferrous Sulfate (Ferrous Sulfate) 325 mg PO DAILY [facility] Stop: 04/08/17 09:01 Furosemide (Lasix) 20 mg PO 1700 [facility] Stop: 04/07/17 17:01 Last Admin: 10/06/16 17:50 Dose: 20 mg Furosemide (Lasix) 40 mg PO QAM [facility] Stop: 04/08/17 09:01 Gabapentin (Neurontin) 300 mg PO TID [facility] Stop: 04/07/17 15:01 Last Admin: 10/06/16 20:21 Dose: 300 mg Insulin Detemir (Levemir) 30 unit SQ HS [facility] Stop: 04/07/17 21:01 Last Admin: 10/06/16 22:25 Dose: 30 unit Insulin Human Lispro (Humalog) 4 units 0.05 units/kg (4 units) SQ TIDWM [facility] Stop: 04/07/17 17:01 Last Admin: 10/07/16 12:28 Dose: Not Given Insulin Human Lispro (Humalog) 0 units SQ TIDAC [facility] PRN Reason: Protocol Stop: 04/07/17 16:31 Last Admin: 10/07/16 12:27 Dose: Not Given Losartan Potassium (Cozaar) 50 mg PO BID [facility] PRN Reason: Protocol Stop: 04/07/17 11:31 Last Admin: 10/06/16 20:21 Dose: 50 mg Naloxone HCl (Narcan) 0.4 mg IVP Q2MIN PRN PRN Reason: Opioid Reversal Stop: 04/07/17 11:24 Omeprazole (Prilosec) 20 mg PO DAILY [facility] Stop: 04/08/17 09:01 Ondansetron HCl (Zofran) 4 mg IVP Q8HR PRN PRN Reason: Nausea And Vomiting Stop: 04/07/17 11:24 Pharmacy Profile Note (Patient Taking Own Medication) 2 each PO BID PRN PRN Reason: Diarrhea Pharmacy Profile Note (Patient Taking Own Medication) 10 each PO DAILY [facility] Stop: 04/08/17 09:01 Rivaroxaban (Xarelto) 15 mg PO QPM [facility] Stop: 04/07/17 18:01 Last Admin: 10/06/16 17:50 Dose: 15 mg Simvastatin (Zocor) 40 mg PO QPM [facility] Stop: 04/07/17 18:01 Last Admin: 10/06/16 17:50 Dose: 40 mg Sitagliptin Phosphate (Januvia) 25 mg PO HS [facility] Stop: 04/07/17 21:01 Last Admin: 10/06/16 20:21 Dose: 25 mg - Imaging and Cardiology Stress Test: report reviewed Echo: report reviewed Cardiac cath: report reviewed Other Results: Telemetry: avg HR=67 SR. - EKG Interpretation EKG results cardiology: personally reviewed Consult Discharge Plan - Plan Referrals: Calixto Clinton DO [Primary Care Provider] -
--- NOTE | 2016-10-07 13:10 | Nuclear Medicine Stress Report ---
Regadenoson Nuclear Stress Name: Narda Low Date of Study: 10/07/2016 Date: 1935 Ht: 65.0 in Medical Record#: [id number] Age: 81 Wt: 207.0 lb Gender: Female Order #: [id number] Location: [facility] Room: [facility] Supervising Provider: Ming Ferris CNP Reading Physician: Sara Tyson DO Ordering Physician: Cheri Broderick CNP Primary Care Physician: Calixto Clinton DO Stress Technologist: Raman Britton, INTERVENTIONAL SALE CONSULTANT, CPFT Treasury Associate: Luis Diallo Indications: Chest Pain Impression: There is a mild reversible ischemia in the distal anteroseptal wall. Pharmacologic ECG was negative for ischemia at the level of heart rate achieved. Gated EF = 54%. History: Hypertension Diabetes Hypercholesteremia History of Coronary Artery Bypass Surgery Stress Test Summary: Stress Test Type: Pharmacologic Regadenoson 0.4mg/5ml given IV Baseline Information: Initial Heart Rate: 75 Blood Pressure: 116/64 Stress Information: Stress Time: 4 min 00 sec Test Terminated Due to (primary): As per protocol Maximum Blood Pressure: 110/62 Maximum Heart Rate: 95 Percent Maximum Heart Rate Achieved: 68 Double Product: 10311 METS Reached: 1 Symptoms: Shortness of breath Nuclear Summary: SPECT myocardial perfusion imaging using Tc99m Sestamibi given intravenously was performed at rest and following cardiac stress testing. The resting images were obtained following initial dose of 11.5 mCi. Following stress an additional dose of 33.9 mCi was given at peak exercise or 30 seconds post regadenoson infusion. Medication Given: Time Medication Dose Units Route Findings: Stress Note * Atrial fibrillation with with controlled ventricular response prior to exam beginning. * Patient had no chest pain during stress. * No concerning arrhythmias were noted during stress. * Pharmacologic stress ECG is negative for ischemia at level of heart rate achieved. Hemodynamic responses * Normal hemodynamic responses to pharmacologic stress. Study Quality * Study quality was fair. Left Ventricle * The left ventricle is not dilated. TID * No evidence of transient ischemic dilatation. Lung Uptake * There is no evidence of increase lung uptake. NORMALS * Normal wall motion. PERFUSION * There is normal resting perfusion. * There is a small sized, mild intensity perfusion defect involving the distal anteroseptal wall. Gated EF % * Gated EF = 54%. Updated by Sara Tyson on 10/07/2016 1:03:56 PM electronically signed on 10/07/2016 1:06:45 PM with status of Final
[2016-10-07] MEDS: Isosorbide MONOnitrate (24 HR) 30 MG TAB.ER.24H PO SCH (13:35)
[2016-10-07] MEDS: Aspirin Enteric Coated 81 MG Tablet PO SCH (13:35)
[2016-10-07] MEDS: Gabapentin 300 MG CAPSULE PO SCH ×3 (13:36→21:05)
[2016-10-07] MEDS: amLODIPine 5 MG TABLET PO SCH (13:36)
[2016-10-07] MEDS: POTASSIUM CHLORIDE 10 MEQ PO SCH (13:37)
[2016-10-07] MEDS: Furosemide 40 MG TABLET PO SCH (13:37)
--- NOTE | 2016-10-07 14:33 | Physician Discharge Referral ---
ExtendedCare Referral Info Transfer To: [facility] Provider in Charge: Kofi Broderick CNP Provider in Charge after Transfer: PCP Institutional Level of Care: Skilled - Transfer Medications Home Medications: Aspirin Enteric Coated [Aspirin EC] 81 mg PO QAM 04/26/15 [History] Furosemide [Lasix] 40 mg PO QAM 04/26/15 [History] Losartan [Cozaar] 50 mg PO BID 04/26/15 [History] Metformin [Glucophage] 500 mg PO QAM 04/26/15 [History] Rivaroxaban [Xarelto] 15 mg PO QPM 04/26/15 [History] SitaGLIPtin [Januvia] 25 mg PO HS 04/26/15 [History] Insulin Glargine [Lantus] 30 unit SQ HS 06/17/15 [History] Diphenoxylate/Atropine [Lomotil 2.5 mg/0.025 mg] 1 tab PO QID PRN 01/06/16 [ History] Pravastatin Sodium [Pravachol] 80 mg PO QPM 01/06/16 [History] Albuterol Sulfate [Albuterol Inhaler] 2 puff IH Q4HR PRN 04/06/16 [History] Amlodipine [Norvasc] 5 mg PO DAILY 04/06/16 [History] Gabapentin [Neurontin] 300 mg PO TID 04/06/16 [History] Ondansetron [Zofran] 8 mg PO Q8HR PRN #10 tablet 08/24/16 [Rx] Albuterol Neb [Proventil Neb] 2.5 mg IH QID 09/14/16 [History] Acetaminophen w/Cod 300-30 mg [Tylenol w/Codeine #3] 1 tab PO Q4HR PRN #30 tablet 09/16/16 [Rx] Carvedilol [Coreg] 12.5 mg PO BIDWM #120 tablet 09/16/16 [Rx] Potassium Chloride [Klor-Con Sprinkle] 10 meq PO DAILY #30 capsule.er 09/16/16 [ Rx] Colestipol HCl [Colestid] 2 gm PO BID PRN 10/06/16 [History] Ferrous Sulfate [Iron] 325 mg PO DAILY 10/06/16 [History] Furosemide [Lasix] 20 mg PO QPM 10/06/16 [History] Pantoprazole Sodium [Protonix] 40 mg PO DAILY 10/06/16 [History] Allergies/Adverse Reactions: Allergies Amoxicillin [From Augmentin] Adverse Reaction (Verified 06/17/15 19:53) Diarrhea ciprofloxacin [From Cipro] Adverse Reaction (Verified 06/17/15 19:53) Vomiting clavulanic acid [From Augmentin] Adverse Reaction (Verified 06/17/15 19:53) Diarrhea doxycycline Adverse Reaction (Verified 06/17/15 19:53) Diarrhea lansoprazole Adverse Reaction (Verified 06/17/15 19:53) Diarrhea Sulfa (Sulfonamide Antibiotics) Adverse Reaction (Verified 06/17/15 19:53) Vomiting sulfamethoxazole [From Bactrim] Adverse Reaction (Verified 06/17/15 19:53) Diarrhea trimethoprim Adverse Reaction (Verified 06/17/15 19:53) Diarrhea - Respiratory Orders Smoking Cessation: Smoking cessation has been advised. For more information, call the [place] Tobacco Quit Line at 8-099-TXJJ-NOW. CERTIFICATION: I certify that the transfer of the above named patient to an Extended Care Facility is necessary for the continuing treatment of the diagnosis listed. The above information is true and accurate reflection of patient's current condition. Confidential - Redisclosure prohibited without a patient's written consent.
--- NOTE | 2016-10-07 15:10 | Discharge Summary ---
Date of Encounter: 10/07/16 Time of Encounter: 12:30 - Discharge Diagnosis (1) Precordial chest pain Priority: Primary Status: Resolved Comments: Patient has denied chest pain since admission. Chest x-ray negative. Stress test unremarkable and represents a low risk finding with mild distal anteroseptal ischemia-cardiology recommends medical management and outpatient follow-up with the addition of Imdur to her regimen. (2) Acute respiratory failure Priority: Primary Status: Acute Comments: The patient does not wear oxygen at home, she was on 2 L per nasal cannula throughout this admission. Prior to discharge, we attempted to qualify her for supplemental oxygenation and she qualified for 2L per nasal cannula Qualifiers: Respiratory failure complication: hypoxia Qualified Code(s): J96.01 - Acute respiratory failure with hypoxia (3) Anticoagulation adequate with anticoagulant therapy Priority: Secondary Status: Chronic Comments: continue Xarelto (4) Diabetes mellitus type 2, insulin dependent Priority: Secondary Status: Chronic Comments: Moderately controlled at home with an A1c of 8.2%, recommend continued follow- up outpatient (5) CAD (coronary artery disease) Priority: Secondary Status: Chronic Qualifiers: Coronary Disease-Associated Artery/Lesion type: bypass graft [place] vs. transplanted heart: [place] heart Associated angina: with stable angina Qualified Code(s): I25.708 - Atherosclerosis of coronary artery bypass graft(s) , unspecified, with other forms of angina pectoris (6) CHF (congestive heart failure) Priority: Primary Status: Acute Comments: Patient with mild reduction in her ejection fraction. Ejection fraction from limited echocardiogram today revealed ejection fraction 35-40% compared to echo from 09/14/15 which revealed an ejection fraction of 45%. Cardiology was brought on board. Per cardiology, today's echocardiogram images were suboptimal in a recommend repeating echocardiogram outpatient along with medical management with addition of low-dose Imdur and follow up outpatient. She is also mildly fluid overloaded on examination she was given Lasix. Acute on chronic combined heart failure. Qualifiers: Congestive heart failure type: combined Congestive heart failure chronicity : acute on chronic Qualified Code(s): I50.43 - Acute on chronic combined systolic (congestive) and diastolic (congestive) heart failure (7) DVT prophylaxis Priority: Primary Status: Acute Comments: on Xarelto (8) Atrial fibrillation Priority: Secondary Status: Chronic Comments: rate controlled; on Xarelto. Qualifiers: Atrial fibrillation type: permanent Qualified Code(s): I48.2 - Chronic atrial fibrillation (9) CKD (chronic kidney disease) stage 3, GFR 30-59 ml/min Priority: Secondary Status: Chronic Comments: Remained stable throughout this admission. Follow-up outpatient. (10) History of COPD Priority: Secondary Status: Chronic Comments: No acute exacerbation, patient denied shortness of breath above her normal throughout this admission. - Discharge Medications Prescriptions: Isosorbide MONOnitrate (24 HR) [Imdur] 30 mg PO DAILY #30 tab.er.24h Oxygen 2 l IN CONT #1 each Home Medications: Aspirin Enteric Coated [Aspirin EC] 81 mg PO QAM 04/26/15 [History] Furosemide [Lasix] 40 mg PO QAM 04/26/15 [History] Losartan [Cozaar] 50 mg PO BID 04/26/15 [History] Metformin [Glucophage] 500 mg PO QAM 04/26/15 [History] Rivaroxaban [Xarelto] 15 mg PO QPM 04/26/15 [History] SitaGLIPtin [Januvia] 25 mg PO HS 04/26/15 [History] Insulin Glargine [Lantus] 30 unit SQ HS 06/17/15 [History] Diphenoxylate/Atropine [Lomotil 2.5 mg/0.025 mg] 1 tab PO QID PRN 01/06/16 [ History] Pravastatin Sodium [Pravachol] 80 mg PO QPM 01/06/16 [History] Albuterol Sulfate [Albuterol Inhaler] 2 puff IH Q4HR PRN 04/06/16 [History] Amlodipine [Norvasc] 5 mg PO DAILY 04/06/16 [History] Gabapentin [Neurontin] 300 mg PO TID 04/06/16 [History] Ondansetron [Zofran] 8 mg PO Q8HR PRN #10 tablet 08/24/16 [Rx] Albuterol Neb [Proventil Neb] 2.5 mg IH QID 09/14/16 [History] Acetaminophen w/Cod 300-30 mg [Tylenol w/Codeine #3] 1 tab PO Q4HR PRN #30 tablet 09/16/16 [Rx] Carvedilol [Coreg] 12.5 mg PO BIDWM #120 tablet 09/16/16 [Rx] Potassium Chloride [Klor-Con Sprinkle] 10 meq PO DAILY #30 capsule.er 09/16/16 [ Rx] Colestipol HCl [Colestid] 2 gm PO BID PRN 10/06/16 [History] Ferrous Sulfate [Iron] 325 mg PO DAILY 10/06/16 [History] Furosemide [Lasix] 20 mg PO QPM 10/06/16 [History] Pantoprazole Sodium [Protonix] 40 mg PO DAILY 10/06/16 [History] Isosorbide MONOnitrate (24 HR) [Imdur] 30 mg PO DAILY #30 tab.er.24h 10/07/16 [ Rx] Oxygen 2 l IN CONT #1 each 10/07/16 [Rx] Allergies/Adverse Reactions: Allergies Amoxicillin [From Augmentin] Adverse Reaction (Verified 06/17/15 19:53) Diarrhea ciprofloxacin [From Cipro] Adverse Reaction (Verified 06/17/15 19:53) Vomiting clavulanic acid [From Augmentin] Adverse Reaction (Verified 06/17/15 19:53) Diarrhea doxycycline Adverse Reaction (Verified 06/17/15 19:53) Diarrhea lansoprazole Adverse Reaction (Verified 06/17/15 19:53) Diarrhea Sulfa (Sulfonamide Antibiotics) Adverse Reaction (Verified 06/17/15 19:53) Vomiting sulfamethoxazole [From Bactrim] Adverse Reaction (Verified 06/17/15 19:53) Diarrhea trimethoprim Adverse Reaction (Verified 06/17/15 19:53) Diarrhea Procedures/tests Complete & Pending: Procedures Performed prior 72 hours Category Date Time Status NM collin perf SPECT multi [NM] Routine Exams 10/06/16 11:31 Taken EV limited echocardiogram Routine Y 10/07/16 11:31 Completed SP pharm nuclear stress Routine Y 10/07/16 07:40 Completed Date of admission: 10/06/16 10:34 Primary care physician: Francy Pendleton Consults: 10/07/16 11:06 Consult to Cardiology [CONS] Routine Comment: Consulting Provider: Cardiology Jennifer Reason for Consult: echo 3 weeks ago with mild sys dysfxn and ef 45%. today, moderate and 35-40%. Subjectivity between readers? please eval. thx. Time Notified: 11:07 Call Completed: No 10/07/16 11:31 Consult to Occupational Therapy [CONS] Routine Comment: Evaluate, develop and implement POC Consult to Physical Therapy [CONS] Routine Comment: Evaluate, develop and implement POC Consult to Music Professor [CONS] Routine Reason for SW Consult: Lives at home with daughter - Pt/Ot also consulted Discharging clinician: Cheri Broderick Anticipated date of discharge: 10/07/16 (sending to [facility]) - Patient Status Disposition: Transfer SNF Condition: Fair Functional capacity at discharge: uses cane/walker Overall status at discharge: patient is back to baseline - Discharge Instructions Follow Up With: Calixto Clinton DO [Primary Care Provider] - Sara Tyson DO [Partnered Physician] - Additional Instructions: Follow-up with primary care provider within one to 2 weeks. Follow-up with cardiology within 2 weeks - Diet and Activity Activity: increase activity as tolerated Diet: diabetic diet, low fat, low cholesterol, low salt diet, other (fluid restriction 1800ml/day) Hospital course: Ms. Low is a 81 year old female with past medical history of CAD status post CABG 3, hypertension, diabetes, atrial fibrillation on Xarelto. Patient presented to the emergency department chief complaint chest pain substernally located, aching that started on the morning of presentation lasted for approximately 20 minutes. Patient denied nausea, shortness of breath, diaphoresis. Patient stated the pain had improved with rest. Workup in the emergency department unremarkable. Chest x-ray negative. Patient was admitted to the hospitalist service for further evaluation and management. Troponins negative. Patient had a limited echocardiogram revealed ejection fraction of 35 -40% and when compared to echocardiogram from 1 month ago, ejection fraction had decreased and cardiology was brought on board. Mildly abnormal stress test also noted. Cardiology spoke to the patient and recommended medical management as well as an outpatient repeat of the echocardiogram with [facility] as the images were suboptimal during this admission. Patient was started on Imdur. Patient denied chest pain or shortness of breath throughout her admission. She was seen by occupational and physical therapy both of whom surmised she had no needs. She currently lives at home with her daughter and her daughter was seeking placement and an ECF as she feels she is no longer able to care for her mother at home. Patient required 2 L per nasal cannula while admitted and on day of discharge, we attempted to qualify her for continuous oxygen and she qualified for 2L per nasal cannula continuously. She was discharged to [facility] in stable condition with close outpatient follow-up with her primary care provider and wood products manufacturer recommended. ITS Impressions Chest X-Ray 10/06/16 06:26 IMPRESSION: No acute abnormality. D/ / 10/06/2016 08:03:06 Maksim Jimenez MD / rebel Interpreting Provider: Maksim Jimenez MD Limited echocardiogram impressions: LVEF 35-40%. Moderate global reduction in LV systolic function. Nuclear stress test impression: There is a mild reversible ischemia in the distal anteroseptal wall. Pharmacologic ECG was negative for ischemia at the level of heart rate achieved. Gated ejection fraction equals 54%. - Time Spent with Patient Total time spent providing and/or coordinating discharge services: - Constitutional Vitals: Temp Pulse Resp BP Pulse Ox 97.6 F 88 16 114/72 93 L 10/07/16 14:59 10/07/16 14:59 10/07/16 14:59 10/07/16 14:59 10/07/16 14:59 General appearance: Present: A&O X 3, pleasant, no acute distress, answers questions appropriately - Head Head exam: Present: atraumatic, normocephalic - Eye Eye exam: Present: PERRL, conjuntiva pink, sclera anicteric Pupils: Present: PERRL - Neck Neck exam general surgery: Present: supple, trachea midline. Absent: lymphadenopathy - Respiratory Respiratory exam: Present: CTAB. Absent: accessory muscle use, rales, respiratory distress, rhonchi, wheezes - Cardiovascular Cardiovascular exam: Present: irregular rhythm, RRR, +S1, +S2. Absent: diastolic murmur, gallop, rubs, systolic murmur - GI/Abdominal GI/Abdominal exam: Present: normal bowel sounds, soft, no peritoneal signs. Absent: distended, tenderness - Extremities Exam Extremities exam: Present: warm, radial pulses palpable and symetrical. Absent : calf tenderness, cyanotic, pedal edema - Neurological Exam Neurological exam: Present: alert, CN II-XII intact, oriented X3, no focal deficits, strengths equal and symetr throughout. Absent: pronater drift, facial droop, speech deficit - Skin Skin exam: Present: dry, intact, normal color, warm
--- NOTE | 2016-10-07 15:27 | Physician Discharge Referral ---
[facility] Referral Info Transfer To: [facility] Provider in Charge: Kofi Broderick CNP Provider in Charge after Transfer: PCP Institutional Level of Care: Intermediate - MR - Diagnosis (1) Precordial chest pain Priority: Primary Status: Resolved (2) Acute respiratory failure Priority: Primary Status: Acute (3) Anticoagulation adequate with anticoagulant therapy Priority: Secondary Status: Chronic (4) Diabetes mellitus type 2, insulin dependent Priority: Secondary Status: Chronic (5) CAD (coronary artery disease) Priority: Secondary Status: Chronic (6) CHF (congestive heart failure) Priority: Primary Status: Acute (7) DVT prophylaxis Priority: Primary Status: Acute (8) Atrial fibrillation Priority: Secondary Status: Chronic (9) CKD (chronic kidney disease) stage 3, GFR 30-59 ml/min Priority: Secondary Status: Chronic (10) History of COPD Priority: Secondary Status: Chronic Prognosis: Fair Aware of Diagnosis: Patient Aware of Prognosis: Patient - Transfer Medications Prescriptions: Isosorbide MONOnitrate (24 HR) [Imdur] 30 mg PO DAILY #30 tab.er.24h Home Medications: Aspirin Enteric Coated [Aspirin EC] 81 mg PO QAM 04/26/15 [History] Furosemide [Lasix] 40 mg PO QAM 04/26/15 [History] Losartan [Cozaar] 50 mg PO BID 04/26/15 [History] Metformin [Glucophage] 500 mg PO QAM 04/26/15 [History] Rivaroxaban [Xarelto] 15 mg PO QPM 04/26/15 [History] SitaGLIPtin [Januvia] 25 mg PO HS 04/26/15 [History] Insulin Glargine [Lantus] 30 unit SQ HS 06/17/15 [History] Diphenoxylate/Atropine [Lomotil 2.5 mg/0.025 mg] 1 tab PO QID PRN 01/06/16 [ History] Pravastatin Sodium [Pravachol] 80 mg PO QPM 01/06/16 [History] Albuterol Sulfate [Albuterol Inhaler] 2 puff IH Q4HR PRN 04/06/16 [History] Amlodipine [Norvasc] 5 mg PO DAILY 04/06/16 [History] Gabapentin [Neurontin] 300 mg PO TID 04/06/16 [History] Ondansetron [Zofran] 8 mg PO Q8HR PRN #10 tablet 08/24/16 [Rx] Albuterol Neb [Proventil Neb] 2.5 mg IH QID 09/14/16 [History] Acetaminophen w/Cod 300-30 mg [Tylenol w/Codeine #3] 1 tab PO Q4HR PRN #30 tablet 09/16/16 [Rx] Carvedilol [Coreg] 12.5 mg PO BIDWM #120 tablet 09/16/16 [Rx] Potassium Chloride [Klor-Con Sprinkle] 10 meq PO DAILY #30 capsule.er 09/16/16 [ Rx] Colestipol HCl [Colestid] 2 gm PO BID PRN 10/06/16 [History] Ferrous Sulfate [Iron] 325 mg PO DAILY 10/06/16 [History] Furosemide [Lasix] 20 mg PO QPM 10/06/16 [History] Pantoprazole Sodium [Protonix] 40 mg PO DAILY 10/06/16 [History] Isosorbide MONOnitrate (24 HR) [Imdur] 30 mg PO DAILY #30 tab.er.24h 10/07/16 [ Rx] Allergies/Adverse Reactions: Allergies Amoxicillin [From Augmentin] Adverse Reaction (Verified 06/17/15 19:53) Diarrhea ciprofloxacin [From Cipro] Adverse Reaction (Verified 06/17/15 19:53) Vomiting clavulanic acid [From Augmentin] Adverse Reaction (Verified 06/17/15 19:53) Diarrhea doxycycline Adverse Reaction (Verified 06/17/15 19:53) Diarrhea lansoprazole Adverse Reaction (Verified 06/17/15 19:53) Diarrhea Sulfa (Sulfonamide Antibiotics) Adverse Reaction (Verified 06/17/15 19:53) Vomiting sulfamethoxazole [From Bactrim] Adverse Reaction (Verified 06/17/15 19:53) Diarrhea trimethoprim Adverse Reaction (Verified 06/17/15 19:53) Diarrhea - Respiratory Orders Smoking Cessation: Smoking cessation has been advised. For more information, call the [employer] Tobacco Quit Line at 6-813-RILF-NOW. - Advance Directives Living Will: No Power of Head Of Design: No Code Status: Full Code - Mobility Orders Ambulate - Rehabiliation Orders Rehab Potential: Fair Rehab Orders: ROM Exercises, Evaluation for Physical Therapy, Evaluation for Occupational Therapy - Treatments Skin tear care topically daily PRN per policy, May check for fecal impaction rectally daily PRN, Fleet enema rectally every other day PRN cleansing purposes CERTIFICATION: I certify that the transfer of the above named patient to an Extended Care Facility is necessary for the continuing treatment of the diagnosis listed. The above information is true and accurate reflection of patient's current condition. Confidential - Redisclosure prohibited without a patient's written consent.
[2016-10-07] MEDS: Furosemide 20 MG TABLET PO SCH (19:35)
[2016-10-07] MEDS: *HR* Rivaroxaban 15 MG TABLET PO SCH (19:35)
[2016-10-07] MEDS: *HR* SitaGLIPtin 25 MG TABLET PO SCH (21:05)
[2016-10-07] MEDS: Insulin DETEMIR 100 UNIT/ML X5UNITS SQ SCH (23:00)
[2016-10-07] MEDS ORDERED: Insulin DETEMIR 100 UNIT/ML X5UNITS SQ SCH (23:15)
[2016-10-08] MEDS: Albuterol 2.5 MG/3 ML NEBULIZER IH SCH ×2 (03:33→11:07)
[2016-10-08 07:02] VITALS: BP 126/75
[2016-10-08] MEDS: Insulin LISPRO 300 UNITS/3 ML VIAL SQ SCH ×2 (09:15→09:23)
[2016-10-08] MEDS: Furosemide 40 MG TABLET PO SCH (09:23)
[2016-10-08] MEDS: amLODIPine 5 MG TABLET PO SCH (09:23)
[2016-10-08] MEDS: Aspirin Enteric Coated 81 MG Tablet PO SCH (09:23)
[2016-10-08] MEDS: Gabapentin 300 MG CAPSULE PO SCH (09:23)
[2016-10-08] MEDS: Isosorbide MONOnitrate (24 HR) 30 MG TAB.ER.24H PO SCH (09:23)
[2016-10-08] MEDS: POTASSIUM CHLORIDE 10 MEQ PO SCH (11:19)
== END 2016-10-08 11:26 ==
LOC: EMEROO 06:24 → 3BNU 06:24
PROVIDERS: ADMIT Internal Medicine; ATTEND Nurse Practitioner Family

== ENCOUNTER 2016-11-18 13:54 | Observation (INO) ==
[2016-11-18] MEDS ORDERED: 0.9 % Sodium Chloride 1,000 ML IVC ONE (14:00)
--- NOTE | 2016-11-18 14:01 | Emergency Department Note ---
Disposition Clinical Impression: [id number] kidney injury, Pedal edema, Shortness of breath, Hypoxia CHF exacerbation Qualifiers: Congestive heart failure type: systolic Qualified Code(s): I50.23 - Acute on chronic systolic (congestive) heart failure Acute exacerbation of CHF (congestive heart failure) Qualifiers: Congestive heart failure type: systolic Qualified Code(s): I50.23 - Acute on chronic systolic (congestive) heart failure Disposition: Admitted As Inpatient Condition: Serious Time of Disposition: 17:16 General Adult HPI - General Stated complaint: bradycardia Time Seen by Provider: 11/18/16 13:59 Nursing Notes Reviewed: Yes Vital Signs Reviewed: Yes - History of Present Illness HPI Narrative: Patient is an 81-year-old female here for bradycardia, shortness of breath. Patient was picked up by EMS to attend her cardiology appointment with Dr. Tyson today but was having shortness of breath and bradycardia was related to the ED instead. [facility] Patient has a history of CHF, COPD, diabetes, A. fib, hypertension and has been having worsening CHF exacerbations over the past 3 weeks. Today would have been patient's follow-up visit with Dr. Tyson. Patient's daughter states that on October 08 when patient started having worsening CHF exacerbations the decision was made for placement in a SNF. She states the patient is not having bilateral pedal edema because patient's is unable to have a recliner in room to allow for elevation of her lower extremities. She states the patient usually gets around on her own and 3 days ago patient was doing well with no significant lower extremity edema. Patient's on 2 L oxygen at home. - Related Data Home Medications Medication Instructions Recorded Confirmed Aspirin Enteric Coated [Aspirin EC] 81 mg PO QAM 04/26/15 11/18/16 Furosemide [Lasix] 40 mg PO QAM 04/26/15 11/18/16 Metformin [Glucophage] 500 mg PO QAM 04/26/15 11/18/16 Rivaroxaban [Xarelto] 15 mg PO QPM 04/26/15 11/18/16 SitaGLIPtin [Januvia] 25 mg PO DAILY 04/26/15 11/18/16 Insulin Glargine [Lantus] 30 unit SQ HS 06/17/15 11/18/16 Diphenoxylate/Atropine [Lomotil 1 tab PO QID PRN 01/06/16 11/18/16 2.5 mg/0.025 mg] Pravastatin Sodium [Pravachol] 80 mg PO QPM 01/06/16 11/18/16 Albuterol Sulfate [Albuterol 2 puff IH Q4HR PRN 04/06/16 11/18/16 Inhaler] Amlodipine [Norvasc] 5 mg PO DAILY 04/06/16 11/18/16 Gabapentin [Neurontin] 300 mg PO TID 04/06/16 11/18/16 Albuterol Neb [Proventil Neb] 2.5 mg IH QID 09/14/16 11/18/16 Colestipol HCl [Colestid] 2 gm PO BID PRN 10/06/16 11/18/16 Ferrous Sulfate [Iron] 325 mg PO DAILY 10/06/16 11/18/16 Pantoprazole Sodium [Protonix] 40 mg PO DAILY 10/06/16 11/18/16 Carvedilol [Coreg] 25 mg PO BID 11/18/16 11/18/16 Hydraguard Cream 1 appl TP DAILY 11/18/16 11/18/16 Ipratropium/Albuterol Neb [Duoneb] 3 ml IH Q6HR PRN 11/18/16 11/18/16 Losartan Potassium [Cozaar] 50 mg PO BID 11/18/16 11/18/16 Miconazole Nitrate [Lotrimin AF] 1 appl TP BID 11/18/16 11/18/16 Oxygen 2 l NS CONT 11/18/16 11/18/16 Spironolactone [Aldactone] 25 mg PO DAILY 11/18/16 11/18/16 Previous Rx's Medication Instructions Recorded Ondansetron [Zofran] 8 mg PO Q8HR PRN #10 tablet 08/24/16 Acetaminophen w/Cod 300-30 mg 1 tab PO Q4HR PRN #30 tablet 09/16/16 [Tylenol w/Codeine #3] Isosorbide MONOnitrate (24 HR) 30 mg PO DAILY #30 tab.er.24h 10/07/16 [Imdur] Allergies Allergy/AdvReac Type Severity Reaction Status Date / Time Amoxicillin [From Augmentin] AdvReac Diarrhea Verified 06/17/15 19:53 ciprofloxacin [From Cipro] AdvReac Vomiting Verified 06/17/15 19:53 clavulanic acid AdvReac Diarrhea Verified 06/17/15 19:53 [From Augmentin] doxycycline AdvReac Diarrhea Verified 06/17/15 19:53 lansoprazole AdvReac Diarrhea Verified 06/17/15 19:53 Sulfa (Sulfonamide AdvReac Vomiting Verified 06/17/15 19:53 Antibiotics) sulfamethoxazole AdvReac Diarrhea Verified 06/17/15 19:53 [From Bactrim] trimethoprim AdvReac Diarrhea Verified 06/17/15 19:53 All systems ED: reviewed and negative except as stated. Constitutional: Reports: weakness. Denies: fever, chills ENT ED: Denies: congestion Cardiovascular: Denies: chest pain Respiratory: Reports: wheezes. Denies: cough, sputum production Gastrointestinal: Denies: abdominal pain, nausea, vomiting, diarrhea, constipation, hematemesis, hematochezia Genitourinary: Denies: urgency, dysuria, frequency Musculoskeletal: Denies: back pain, neck pain Integumentary: Denies: rash Neurological: Denies: headache Psychiatric: Reports: anxiety Endocrine: Denies: fatigue Hematological/Lymphatic: Denies: easy bleeding Allergic/Immunologic: Denies: facial swelling Past Medical History - Past Medical History Attestation: Yes The following information was validated with the patient. 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 INSPECTOR history - Social History Smoking Status: Never smoker Smokeless Tobacco Status: No Alcohol use: Reports: none Drug use: Reports: none Physical Exam Vital Signs Temperature 98 F 11/18/16 13:55 Pulse Rate 85 11/18/16 13:55 Respiratory Rate 18 11/18/16 13:55 Blood Pressure 119/69 11/18/16 13:55 O2 Sat by Pulse Oximetry 82 11/18/16 13:55 Temperature 98 F 11/18/16 13:55 Pulse Rate 85 11/18/16 13:55 Respiratory Rate 18 11/18/16 13:55 Blood Pressure 119/69 11/18/16 13:55 O2 Sat by Pulse Oximetry 82 11/18/16 13:55 Oxygen Delivery Oxygen Delivery Room Air -General Appearance: Patient is a 81-year-old who is moaning in the bed states she is not any pain. Patient states not lay her flat or she will suffocate. Patient has a GCS of 15 alert and oriented 3 -Neurological exam: Cranial nerves II-12 intact, no focal deficits observed, strength equal 5/5 bilaterally in upper and lower extremities - Head Head exam: atraumatic, normocephalic, normal inspection - Eye Eye exam: Present: normal appearance, PERRL, EOMI, negative for scleral icterus negative for conjunctival pallor - ENT ENT exam: normal exam, normal oropharynx, mucous membranes moist - Neck Neck exam: Present: normal inspection, full ROM, trachea midline, negative JVD - Chest Chest inspection: Present: Patient has bilateral equal rise and fall of chest wall. Non-tender to palpation. - Respiratory Respiratory exam: Distant sounding lungs sounds with bilateral wheezes and rales. Cardiovascular Cardiovascular exam: Present: regular rate, irregular rhythm, sounds like gallops no murmurs or rubs. - Abdominal Exam Abdominal exam: Present: soft, nondistended, Non-Tender light and deep palpation in all quadrants. Bowel sounds normoactive throughout all 4 quadrants. Negative for hyper or hyperresonance. - Extremities Exam Extremities exam: Present: normal inspection, full ROM - Back Exam Back exam: Present: normal inspection, full ROM. Absent: CVA tenderness (R), CVA tenderness (L) - Psychiatric Psychiatric exam: Present: normal affect, normal mood - Skin Skin exam: Present: warm, dry, intact, patient's nondiaphoretic but appears pale. Course - Reevaluation(s) Reevaluation #1: Assessment: CHF exacerbation, ACS/HI, A. fib slow ventricular response, symptomatic bradycardia, PE, pneumonia, pneumothorax Time: 14:00 Reevaluation #2: Patient states that she is feeling well, patient states that I looked good and patient's daughter states her mother sounds like herself again. CT head shows no acute intracranial abnormality, CT was taken secondary to patient's confusion and time of admission to ED Time: 14:27 Reevaluation #3: Patient is off to CT. Time: 15:00 Additional Reevaluation(s): Patient just returned from CT. Awaiting results. Patient's resting comfortably. Patient's vital signs show pulse rate 97 and O2 sat 97% on 2 L via nasal cannula Patient clinically appears to have CHF exacerbation current BNP 416 which is a little lower than her previous, but has bilateral lower lobe pleural effusions on chest x-ray but no signs of pneumothorax. Patient's labs show a acute on chronic kidney injury as well with an elevation of her BUN and creatinine above her current chronic baseline. Recommend admission for CHF exacerbation, acute on chronic kidney injury, and symptomatic bradycardia with hypoxia and shortness of breath prior to arrival in the hospital. The patient and family accepts treatment and plan - Consultations Consultation #1: Dr. Larsen and the hospitalist excess patient for admission Time: 17:16 Vital Signs Temperature 98 F 11/18/16 13:55 Pulse Rate 85 11/18/16 13:55 Respiratory Rate 18 11/18/16 13:55 Blood Pressure 119/69 11/18/16 13:55 O2 Sat by Pulse Oximetry 82 11/18/16 13:55 Temperature 97.6 F 11/18/16 19:12 Pulse Rate 79 11/18/16 19:12 Respiratory Rate 17 11/18/16 19:12 Blood Pressure 110/59 11/18/16 19:12 O2 Sat by Pulse Oximetry 94 11/18/16 19:12 Oxygen Delivery Oxygen Delivery Nasal Cannula Medical Decision Making - Medical Records Medical records reviewed: Yes I reviewed the patient's medical records. Patient's last echo on 10/07/2016 shows an EF of 35-40% - Lab Data Lab results reviewed: Yes I reviewed the patient's lab results. Lab results narrative: Short CBC 11/18/16 Range/Units 14:31 WBC 12.6 H (4.3-11.1) K/mcL Hgb 8.6 L (11.5-15.4) g/dL Hct 29.0 L (35.3-44.9) % Plt Count 190 (140-400) K/mcL Neutrophils # 10.8 H (1.6-8.9) K/mcL BMP 11/18/16 Range/Units 14:31 Sodium 139 (136-145) mEq/L Potassium 5.2 H (3.5-4.5) mEq/L Chloride 101 (98-109) mEq/L Carbon Dioxide 29 (19-29) mEq/L BUN 56 H (7-20) mg/dL Creatinine 2.76 H (0.57-1.11) mg/dL Glucose 154 H (70-99) mg/dL Calcium 9.0 (8.6-10.8) mg/dL Cardiac Enzymes 11/18/16 Range/Units 14:31 Troponin I 0.00 (0-0.03) ng/mL Liver Function 11/18/16 Range/Units 14:31 Total Bilirubin 0.6 (0.2-1.2) mg/dL Direct Bilirubin 0.3 (0.0-0.5) mg/dL AST 27 (5-34) Units/L ALT 21 (0-55) Units/L Alkaline Phosphatase 57 (38-126) Units/L Albumin 3.2 L (3.5-5.0) g/dL Urine 11/18/16 Range/Units 16:07 Urine Color Yellow (Yellow) Urine Clarity Cloudy A (Clear) Urine pH 5.5 (5.0-8.0) pH Units Ur Specific [place] 1.013 (1.010-1.025) Urine Protein Negative (Neg-Trace) mg/dL Urine Glucose (UA) Normal (Normal) mg/dL Result diagrams: 11/18/16 14:31 11/18/16 14:31 Lab Results 11/18/16 11/18/16 11/18/16 Range/Units 14:31 14:31 14:31 WBC 12.6 H (4.3-11.1) K/mcL RBC 3.16 L (3.82-4.97) M/mcL Hgb 8.6 L (11.5-15.4) g/dL Hct 29.0 L (35.3-44.9) % MCV 91.8 (83.0-100.0) fL MCH 27.2 L (28.0-33.3) pg MCHC 29.7 L (31.6-35.5) g/dL RDW 14.6 H (11.5-14.5) % Plt Count 190 (140-400) K/mcL MPV 10.7 (9.4-12.4) fL Immature Gran % 0.6 (0-4) % Seg Neutrophils % 85.5 % Lymphocytes % 6.9 % Monocytes % 6.2 % Eosinophils % 0.6 % Basophils % 0.2 % Neutrophils # 10.8 H (1.6-8.9) K/mcL Lymphocytes # 0.9 (0.6-4.6) K/mcL Monocytes # 0.8 (0.0-1.3) K/mcL Eosinophils # 0.1 (0.0-0.6) K/mcL Basophils # 0.0 (0.0-0.2) K/mcL PT 16.8 H (9.4-12.1) Seconds INR 1.5 APTT 29.8 (26.0-36.0) Seconds Sodium 139 (136-145) mEq/L Potassium 5.2 H (3.5-4.5) mEq/L Chloride 101 (98-109) mEq/L Carbon Dioxide 29 (19-29) mEq/L BUN 56 H (7-20) mg/dL Creatinine 2.76 H (0.57-1.11) mg/dL Est GFR ( Amer) 20 L (> 60) Est GFR (Non-Af Amer) 17 L (> 60) BUN/Creatinine Ratio 20 (6-26) Glucose 154 H (70-99) mg/dL Calculated Osmolality 307 H (280-300) Calcium 9.0 (8.6-10.8) mg/dL Magnesium (1.6-2.6) mg/dL Total Bilirubin 0.6 (0.2-1.2) mg/dL Direct Bilirubin 0.3 (0.0-0.5) mg/dL Indirect Bilirubin 0.3 (0.0-1.2) mg/dL AST 27 (5-34) Units/L ALT 21 (0-55) Units/L Alkaline Phosphatase 57 (38-126) Units/L Troponin I (0-0.03) ng/mL B-Natriuretic Peptide (0-100) pg/mL Serum Total Protein 7.1 (6.0-8.3) g/dL Albumin 3.2 L (3.5-5.0) g/dL Globulin 3.9 H (2.4-3.5) g/dL Albumin/Globulin Ratio 0.8 L (1.1-2.2) TSH 2.607 (0.350-4.840) mcIU/mL Urine Color (Yellow) Urine Clarity (Clear) Urine pH (5.0-8.0) pH Units Ur Specific [place] (1.010-1.025) Urine Protein (Neg-Trace) mg/dL Urine Glucose (UA) (Normal) mg/dL Urine Ketones (Negative) mg/dL Urine Blood (Negative) Urine Nitrite (Negative) Urine Bilirubin (Negative) Urine Urobilinogen (Normal) mg/dL Ur Leukocyte Esterase (Negative) Urine Microscopic RBC (0-3) per hpf Urine Microscopic WBC (0-3) per hpf Ur Squamous Epith Cells (None-Few) per lpf Urine Bacteria (None-Few) per hpf Hyaline Casts (None-Few) per lpf Ur Culture Indicated? (NO) Urine Opiates Screen (Yjskwn=595) ng/mL Ur Barbiturates Screen (Yzagry=079) ng/mL Ur Phencyclidine Scrn (Cutoff=25) ng/mL Ur Amphetamines Screen (Frbkvp=1978) ng/mL U Benzodiazepines Scrn (Rdubgo=527) ng/mL Urine Cocaine Screen (Cutoff= 300) ng/mL U Marijuana (THC) Screen (Cutoff = 50) ng/mL Ethyl Alcohol < 10 (0-10) mg/dL Blood Type Antibody Screen 11/18/16 11/18/16 11/18/16 Range/Units 14:31 14:31 14:31 WBC (4.3-11.1) K/mcL RBC (3.82-4.97) M/mcL Hgb (11.5-15.4) g/dL Hct (35.3-44.9) % MCV (83.0-100.0) fL MCH (28.0-33.3) pg MCHC (31.6-35.5) g/dL RDW (11.5-14.5) % Plt Count (140-400) K/mcL MPV (9.4-12.4) fL Immature Gran % (0-4) % Seg Neutrophils % % Lymphocytes % % Monocytes % % Eosinophils % % Basophils % % Neutrophils # (1.6-8.9) K/mcL Lymphocytes # (0.6-4.6) K/mcL Monocytes # (0.0-1.3) K/mcL Eosinophils # (0.0-0.6) K/mcL Basophils # (0.0-0.2) K/mcL PT (9.4-12.1) Seconds INR APTT (26.0-36.0) Seconds Sodium (136-145) mEq/L Potassium (3.5-4.5) mEq/L Chloride (98-109) mEq/L Carbon Dioxide (19-29) mEq/L BUN (7-20) mg/dL Creatinine (0.57-1.11) mg/dL Est GFR ( Amer) (> 60) Est GFR (Non-Af Amer) (> 60) BUN/Creatinine Ratio (6-26) Glucose (70-99) mg/dL Calculated Osmolality (280-300) Calcium (8.6-10.8) mg/dL Magnesium 1.8 (1.6-2.6) mg/dL Total Bilirubin (0.2-1.2) mg/dL Direct Bilirubin (0.0-0.5) mg/dL Indirect Bilirubin (0.0-1.2) mg/dL AST (5-34) Units/L ALT (0-55) Units/L Alkaline Phosphatase (38-126) Units/L Troponin I 0.00 (0-0.03) ng/mL B-Natriuretic Peptide (0-100) pg/mL Serum Total Protein (6.0-8.3) g/dL Albumin (3.5-5.0) g/dL Globulin (2.4-3.5) g/dL Albumin/Globulin Ratio (1.1-2.2) TSH (0.350-4.840) mcIU/mL Urine Color (Yellow) Urine Clarity (Clear) Urine pH (5.0-8.0) pH Units Ur Specific [place] (1.010-1.025) Urine Protein (Neg-Trace) mg/dL Urine Glucose (UA) (Normal) mg/dL Urine Ketones (Negative) mg/dL Urine Blood (Negative) Urine Nitrite (Negative) Urine Bilirubin (Negative) Urine Urobilinogen (Normal) mg/dL Ur Leukocyte Esterase (Negative) Urine Microscopic RBC (0-3) per hpf Urine Microscopic WBC (0-3) per hpf Ur Squamous Epith Cells (None-Few) per lpf Urine Bacteria (None-Few) per hpf Hyaline Casts (None-Few) per lpf Ur Culture Indicated? (NO) Urine Opiates Screen (Xtdhsx=993) ng/mL Ur Barbiturates Screen (Lxyhuo=090) ng/mL Ur Phencyclidine Scrn (Cutoff=25) ng/mL Ur Amphetamines Screen (Shnvmq=9670) ng/mL U Benzodiazepines Scrn (Rakcsb=921) ng/mL Urine Cocaine Screen (Cutoff= 300) ng/mL U Marijuana (THC) Screen (Cutoff = 50) ng/mL Ethyl Alcohol (0-10) mg/dL Blood Type A POSITIVE Antibody Screen NEGATIVE 11/18/16 11/18/16 11/18/16 Range/Units 14:31 16:07 16:07 WBC (4.3-11.1) K/mcL RBC (3.82-4.97) M/mcL Hgb (11.5-15.4) g/dL Hct (35.3-44.9) % MCV (83.0-100.0) fL MCH (28.0-33.3) pg MCHC (31.6-35.5) g/dL RDW (11.5-14.5) % Plt Count (140-400) K/mcL MPV (9.4-12.4) fL Immature Gran % (0-4) % Seg Neutrophils % % Lymphocytes % % Monocytes % % Eosinophils % % Basophils % % Neutrophils # (1.6-8.9) K/mcL Lymphocytes # (0.6-4.6) K/mcL Monocytes # (0.0-1.3) K/mcL Eosinophils # (0.0-0.6) K/mcL Basophils # (0.0-0.2) K/mcL PT (9.4-12.1) Seconds INR APTT (26.0-36.0) Seconds Sodium (136-145) mEq/L Potassium (3.5-4.5) mEq/L Chloride (98-109) mEq/L Carbon Dioxide (19-29) mEq/L BUN (7-20) mg/dL Creatinine (0.57-1.11) mg/dL Est GFR ( Amer) (> 60) Est GFR (Non-Af Amer) (> 60) BUN/Creatinine Ratio (6-26) Glucose (70-99) mg/dL Calculated Osmolality (280-300) Calcium (8.6-10.8) mg/dL Magnesium (1.6-2.6) mg/dL Total Bilirubin (0.2-1.2) mg/dL Direct Bilirubin (0.0-0.5) mg/dL Indirect Bilirubin (0.0-1.2) mg/dL AST (5-34) Units/L ALT (0-55) Units/L Alkaline Phosphatase (38-126) Units/L Troponin I (0-0.03) ng/mL B-Natriuretic Peptide 416 H (0-100) pg/mL Serum Total Protein (6.0-8.3) g/dL Albumin (3.5-5.0) g/dL Globulin (2.4-3.5) g/dL Albumin/Globulin Ratio (1.1-2.2) TSH (0.350-4.840) mcIU/mL Urine Color Yellow (Yellow) Urine Clarity Cloudy A (Clear) Urine pH 5.5 (5.0-8.0) pH Units Ur Specific [place] 1.013 (1.010-1.025) Urine Protein Negative (Neg-Trace) mg/dL Urine Glucose (UA) Normal (Normal) mg/dL Urine Ketones Negative (Negative) mg/dL Urine Blood Negative (Negative) Urine Nitrite Negative (Negative) Urine Bilirubin Negative (Negative) Urine Urobilinogen Normal (Normal) mg/dL Ur Leukocyte Esterase Negative (Negative) Urine Microscopic RBC 0-3 (0-3) per hpf Urine Microscopic WBC 0-3 (0-3) per hpf Ur Squamous Epith Cells Many H (None-Few) per lpf Urine Bacteria None Seen (None-Few) per hpf Hyaline Casts None Seen (None-Few) per lpf Ur Culture Indicated? NO (NO) Urine Opiates Screen Positive H (Flbgsv=367) ng/mL Ur Barbiturates Screen Negative (Ijtuna=396) ng/mL Ur Phencyclidine Scrn Negative (Cutoff=25) ng/mL Ur Amphetamines Screen Negative (Amdtvz=9552) ng/mL U Benzodiazepines Scrn Negative (Fymwqh=128) ng/mL Urine Cocaine Screen Negative (Cutoff= 300) ng/mL U Marijuana (THC) Screen Negative (Cutoff = 50) ng/mL Ethyl Alcohol (0-10) mg/dL Blood Type Antibody Screen - Radiology Data Radiology results reviewed: Yes I reviewed the patient's radiology results. Chest X-Ray 11/18/16 14:00 IMPRESSION: Cardiomegaly with questionable mild perihilar congestive changes. Suggestion of small bilateral effusions . D/ / Raj Avalos MD / Raj Avalos MD Interpreting Provider: Raj Avalos MD Head CT 11/18/16 14:22 IMPRESSION: Stable global atrophy and extensive chronic small vessel ischemic disease. No acute intracranial abnormality. D/ / 11/18/2016 15:19:22 Maksim Jimenez MD / Sarai Hernandez Interpreting Provider: Maksim Jimenez MD - EKG Data EKG #1 EKG attestation: Yes I reviewed and interpreted this EKG. EKG results narrative: EKG taken 11/18/2016 and 1406 hrs. shows a atrial fibrillation at a rate of 91 beats a minute with no acute ST elevations or depressions in any leads, no QRS widening or QT prolongation. Attestation Statement - Attestation Attestation: I examined this patient and my medical decision-making was reviewed with the COOKING INSTRUCTOR/PA/Advanced Practice Nurse/Resident Physician. I agree with the documented findings, disposition and treatment plan as described except to the extent set forth below. [id number] time provided Patient presents via EMS. She was being transported to her cardiology appointment when they found her to be bradycardic. Medication list reviewed by me indicating the patient takes both a calcium channel shelia and a beta shelia. She also takes Xarelto. She is alert on exam. Patient seen and evaluated in conjunction with the resident physician Dr. Valentine
[2016-11-18] MEDS ORDERED: *HR* Atropine Sulfate 1 MG/10 ML SYRINGE IVP ONE (14:05)
[2016-11-18] MEDS ORDERED: Ipratropium/Albuterol Neb 3 ML IH ONE (14:27)
[2016-11-18] MEDS ORDERED: methylPREDNISolone 125 MG/2 ML VIAL IVP ONE (14:28)
[2016-11-18 14:40] LABS: Basophils % 0.2 %; Eosinophils # 0.1 K/mcL (0.0-0.6); Eosinophils % 0.6 %; Hemoglobin 8.6 g/dL (11.5-15.4); Immature Granulocytes % 0.6 % (0-4); Lymphocytes # 0.9 K/mcL (0.6-4.6); Lymphocytes % 6.9 %; Mean Corpuscular HGB Conc 29.7 g/dL (31.6-35.5); Mean Corpuscular Hemoglobin 27.2 pg (28.0-33.3); Mean Corpuscular Volume 91.8 fL (83.0-100.0); Mean Platelet Volume 10.7 fL (9.4-12.4); Monocytes # 0.8 K/mcL (0.0-1.3); Monocytes % 6.2 %; Neutrophils # 10.8 K/mcL (1.6-8.9); Platelet Count 190 K/mcL (140-400); Red Blood Count 3.16 M/mcL (3.82-4.97); Red Cell Distribution Width 14.6 % (11.5-14.5); Segmented Neutrophils % 85.5 %
[2016-11-18 14:45] LABS: INR 1.5; Prothrombin Time 16.8 Seconds (9.4-12.1)
[2016-11-18 14:48] LABS: Activated Partial Thrombo Time 29.8 Seconds (26.0-36.0)
[2016-11-18 14:57] LABS: Alanine Aminotransferase 21 Units/L (0-55); Albumin 3.2 g/dL (3.5-5.0); Albumin/Globulin Ratio 0.8 (1.1-2.2); Alkaline Phosphatase 57 Units/L (38-126); Aspartate Amino Transferase 27 Units/L (5-34); BUN/Creatinine Ratio 20 (6-26); Bilirubin,Direct 0.3 mg/dL (0.0-0.5); Bilirubin,Indirect 0.3 mg/dL (0.0-1.2); Bilirubin,Total 0.6 mg/dL (0.2-1.2); Blood Urea Nitrogen 56 mg/dL (7-20); Carbon Dioxide 29 mEq/L (19-29); Chloride 101 mEq/L (98-109); Globulin 3.9 g/dL (2.4-3.5); Glucose 154 mg/dL (70-99); Osmolality,Calculated 307 (280-300); Potassium 5.2 mEq/L (3.5-4.5); Sodium 139 mEq/L (136-145); Total Protein 7.1 g/dL (6.0-8.3); eGFR For African Americans 20 (> 60); eGFR For Non-African Americans 17 (> 60)
[2016-11-18 15:19] LABS: Ethanol < 10 mg/dL (0-10)
[2016-11-18 15:41] LABS: Thyroid Stimulating Hormone 2.607 mcIU/mL (0.350-4.840)
[2016-11-18 16:24] LABS: Bilirubin,Urine Negative (Negative); Blood,Urine Negative (Negative); Clarity,Urine Cloudy (Clear); Color,Urine Yellow (Yellow); Glucose,Urine (UA) Normal (Normal); Ketones,Urine Negative (Negative); Leukocyte Esterase,Urine Negative (Negative); Nitrite,Urine Negative (Negative); PH,Urine 5.5 pH Units (5.0-8.0); Protein,Urine Negative (Neg-Trace); Specific Gravity,Urine 1.013 (1.010-1.025); Urobilinogen,Urine Normal (Normal)
[2016-11-18 16:27] LABS: Bacteria,Urine None Seen per hpf (None-Few); Hyaline Casts,Urine None Seen per lpf (None-Few); RBC,Urine 0-3 per hpf (0-3); Squamous Epithelial Cell,Urine Many per lpf (None-Few); WBC,Urine 0-3 per hpf (0-3)
[2016-11-18 16:28] LABS: Amphetamine Screen,Urine Negative ng/mL (Cutoff=1000); Barbiturate Screen,Urine Negative ng/mL (Cutoff=200); Benzodiazepines Screen,Urine Negative ng/mL (Cutoff=200); Cannabinoid Screen,Urine Negative ng/mL (Cutoff = 50); Cocaine Screen,Urine Negative ng/mL (Cutoff= 300); Opiate Screen,Urine Positive ng/mL (Cutoff=300); Phencyclidine Screen,Urine Negative ng/mL (Cutoff=25)
[2016-11-18] MEDS ORDERED: Calcium Gluconate 1,000 MG in D5% in Water 100 ML IVPB ONE (17:15)
[2016-11-18] MEDS ORDERED: Sodium Bicarbonate 50 MEQ/50 ML VIAL IVP ONE (17:15)
[2016-11-18] MEDS ORDERED: Furosemide 40 MG/4 ML VIAL IVP SCH (18:15)
--- NOTE | 2016-11-18 18:38 | Internal Med History&Physical ---
Date of Encounter: 11/21/16 Time of Encounter: 18:32 Assessment and Plan (1) Acute respiratory failure Current visit: Yes Status: Acute due to congestive heart failure mainly. Patient is stuporous currently. she will be placed on BiPAP immediately. arterial blood gas. I will diaries the patient she also has expiratory wheezing which I think is mainly relates to fluids but will keep her tonight on steroids nebulizer treatments azithromycin for possible acute bronchitis related to her underlying COPD. I have discussed the case with patients daughter was the power of estate attorney. Patient is DNI/DNR Qualifiers: Respiratory failure complication: hypercapnia Qualified Code(s): J96.02 - Acute respiratory failure with hypercapnia (2) Toxic metabolic encephalopathy Current visit: Yes Status: Resolved Suspect elevated CO2. Arterial blood gas will be performed. There is also a possibility that there may be at least partial contribution from codeine. Will try one dose of Narcan .4 mg (3) ANNALEE (acute kidney injury) Current visit: Yes Status: Acute Watch during diuresis (4) Congestive heart failure with cardiomyopathy Current visit: Yes Status: Chronic Lasix 60 mg IV BID. Strict intake and output. Talavera catheter Internal Medicine - H&P: HPI Chief complaint: SOB History of present illness: Ms. Low is a 81 year old female with multiple medical problems including coronary artery disease status post cabg in 2012, ischemic cardiomyopathy who currently lives in long-term care presented to our emergency room because of shortness of breath. Patient is unable to above to provide any history during my interview because she is stuporous. history was obtained from your physician and nursing staff. Patient has been developing lower extremity swelling that increased shortness of breath she has become less responsive today. During my interview patient is stuporous arousable to painful stimuli. On route the patient was noted to be bradycardia down to 20s by paramedics. There is no documentation of this bradycardia and no further information provided regarding the rhythm. No reported fever. She is reportedly a COPDer on oxygen. Patient is on Tylenol with codeine 30 mg of codeine every 4 hours as needed for pain this has been started in September two month ago. daughters not sure whether the patient has been taking this medicine at the [facility] or not. Past Med Surg Social Fam HX - Past Medical History Medical history: atrial fibrillation, CHF, COPD, coronary artery disease, dementia, diabetes, hypertension Psychiatric history: anxiety, bipolar, depression - Past Surgical History Surgical History: coronary bypass (CABG) - Social History Smoking Status: Never smoker Smokeless Tobacco Status: No Alcohol use: none Drug use: none - Family History Paternal Hx Family Cardiac Disorders: Yes (HTN, [place],) Hx Family Respiratory Disorders: No Hx Family Cancer: Yes Hx Family GI Disorders: No Hx Family Endocrine Disorder: Yes (DM) Hx Family Neuromuscular Disorders: No Hx Family Neurologic Disorders: No Hx Family HEENT Disorders: No Hx Family Autoimmune Disorders: No Internal Medicine - H&P: Meds Aspirin Enteric Coated [Aspirin EC] 81 mg PO QAM 04/26/15 [History] Furosemide [Lasix] 40 mg PO QAM 04/26/15 [History] Metformin [Glucophage] 500 mg PO QAM 04/26/15 [History] Rivaroxaban [Xarelto] 15 mg PO QPM 04/26/15 [History] SitaGLIPtin [Januvia] 25 mg PO DAILY 04/26/15 [History] Insulin Glargine [Lantus] 30 unit SQ HS 06/17/15 [History] Diphenoxylate/Atropine [Lomotil 2.5 mg/0.025 mg] 1 tab PO QID PRN 01/06/16 [ History] Pravastatin Sodium [Pravachol] 80 mg PO QPM 01/06/16 [History] Albuterol Sulfate [Albuterol Inhaler] 2 puff IH Q4HR PRN 04/06/16 [History] Amlodipine [Norvasc] 5 mg PO DAILY 04/06/16 [History] Gabapentin [Neurontin] 300 mg PO TID 04/06/16 [History] Ondansetron [Zofran] 8 mg PO Q8HR PRN #10 tablet 08/24/16 [Rx] Albuterol Neb [Proventil Neb] 2.5 mg IH QID 09/14/16 [History] Acetaminophen w/Cod 300-30 mg [Tylenol w/Codeine #3] 1 tab PO Q4HR PRN #30 tablet 09/16/16 [Rx] Colestipol HCl [Colestid] 2 gm PO BID PRN 10/06/16 [History] Ferrous Sulfate [Iron] 325 mg PO DAILY 10/06/16 [History] Pantoprazole Sodium [Protonix] 40 mg PO DAILY 10/06/16 [History] Isosorbide MONOnitrate (24 HR) [Imdur] 30 mg PO DAILY #30 tab.er.24h 10/07/16 [ Rx] Carvedilol [Coreg] 25 mg PO BID 11/18/16 [History] Hydraguard Cream 1 appl TP DAILY 11/18/16 [History] Ipratropium/Albuterol Neb [Duoneb] 3 ml IH Q6HR PRN 11/18/16 [History] Losartan Potassium [Cozaar] 50 mg PO BID 11/18/16 [History] Miconazole Nitrate [Lotrimin AF] 1 appl TP BID 11/18/16 [History] Oxygen 2 l NS CONT 11/18/16 [History] Spironolactone [Aldactone] 25 mg PO DAILY 11/18/16 [History] Allergies Amoxicillin [From Augmentin] Adverse Reaction (Verified 06/17/15 19:53) Diarrhea ciprofloxacin [From Cipro] Adverse Reaction (Verified 06/17/15 19:53) Vomiting clavulanic acid [From Augmentin] Adverse Reaction (Verified 06/17/15 19:53) Diarrhea doxycycline Adverse Reaction (Verified 06/17/15 19:53) Diarrhea lansoprazole Adverse Reaction (Verified 06/17/15 19:53) Diarrhea Sulfa (Sulfonamide Antibiotics) Adverse Reaction (Verified 06/17/15 19:53) Vomiting sulfamethoxazole [From Bactrim] Adverse Reaction (Verified 06/17/15 19:53) Diarrhea trimethoprim Adverse Reaction (Verified 06/17/15 19:53) Diarrhea All Systems PM: A 10-system review of systems was performed and is negative for pertinent findings except as documented above in the HPI. Review of systems: Review of systems is unobtainable. - Constitutional Vitals: Temp Pulse Resp BP Pulse Ox 98 F 72 18 132/76 94 11/18/16 13:55 11/18/16 18:01 11/18/16 18:01 11/18/16 18:01 11/18/16 18:01 Exam: Gen.: patient is stuporous courtier: normal S1 S2 tachycardic chest: crackles up to lower one third of the chest head no jaundice or cyanosis neuro uncooperative with neuro exam Internal Med - H&P Results - Labs CBC & Chem 7: 11/21/16 05:46 11/21/16 05:46
[2016-11-18] MEDS ORDERED: Azithromycin 500 MG in D5% in Water 250 ML IVPB SCH (19:00)
[2016-11-18 19:20] LABS: ABG Base Excess 5.5 mEq/L (-2.0 to 3.0); ABG HCO3 33.2 mEQ/L (21-27); ABG Oxygen Saturation 89 % (95-98); ABG PCO2 66 mmHg (35-45); ABG PH 7.31 pH Units (7.32-7.45); ABG PO2 62 mmHg (85-104); ABG TCO2 35.2 mEq/L (20-26)
[2016-11-18 19:21] LABS: Blood Gas FiO2 35 %
[2016-11-18] MEDS ORDERED: Naloxone 0.4 MG/ML INJ IVP ONE (19:53)
[2016-11-18] MEDS: Furosemide 40 MG/4 ML VIAL IVP SCH (20:10)
[2016-11-18] MEDS: Ipratropium/Albuterol Neb 3 ML IH SCH ×2 (20:40→23:30)
[2016-11-18] MEDS: Insulin LISPRO 300 UNITS/3 ML VIAL SQ SCH (21:05)
[2016-11-18 21:20] LABS: Potassium 5.5 mEq/L (3.5-4.5)
[2016-11-18 23:34] LABS: ABG Base Excess 4.7 mEq/L (-2.0 to 3.0); ABG HCO3 31.9 mEQ/L (21-27); ABG Oxygen Saturation 97 % (95-98); ABG PCO2 62 mmHg (35-45); ABG PH 7.32 pH Units (7.32-7.45); ABG PO2 94 mmHg (85-104); ABG TCO2 33.8 mEq/L (20-26)
[2016-11-18 23:35] LABS: Blood Gas FiO2 50 %
[2016-11-19] MEDS: Insulin LISPRO 300 UNITS/3 ML VIAL SQ SCH ×5 (00:29→20:08)
[2016-11-19] MEDS: MethylPREDNISolone 40 MG/ML VIAL IVP SCH ×3 (00:29→12:09)
[2016-11-19] MEDS: Ipratropium/Albuterol Neb 3 ML IH SCH ×6 (03:51→23:18)
[2016-11-19 05:07] LABS: Basophils % 0.1 %; Hematocrit 30.2 % (35.3-44.9); Hemoglobin 9.2 g/dL (11.5-15.4); Immature Granulocytes % 0.7 % (0-4); Lymphocytes # 0.3 K/mcL (0.6-4.6); Lymphocytes % 3.5 %; Mean Corpuscular HGB Conc 30.5 g/dL (31.6-35.5); Mean Corpuscular Hemoglobin 27.6 pg (28.0-33.3); Mean Corpuscular Volume 90.7 fL (83.0-100.0); Mean Platelet Volume 11.4 fL (9.4-12.4); Monocytes # 0.2 K/mcL (0.0-1.3); Monocytes % 1.8 %; Neutrophils # 8.2 K/mcL (1.6-8.9); Platelet Count 194 K/mcL (140-400); Red Blood Count 3.33 M/mcL (3.82-4.97); Red Cell Distribution Width 14.3 % (11.5-14.5); Segmented Neutrophils % 93.9 %
[2016-11-19 05:32] LABS: Calcium 9.4 mg/dL (8.6-10.8); Magnesium 1.8 mg/dL (1.6-2.6); Potassium 4.9 mEq/L (3.5-4.5)
[2016-11-19] MEDS ORDERED: Dextrose Gel 15 GM PO PRN ×2 (11:53)
[2016-11-19] MEDS ORDERED: *HR* Dextrose 50 % in Water (Syg) 50 ML SYRINGE IVP PRN (11:53)
[2016-11-19] MEDS ORDERED: D5% in Water 1,000 ML IVC PRN (11:53)
[2016-11-19] MEDS: Aspirin Enteric Coated 81 MG Tablet PO SCH (12:03)
[2016-11-19] MEDS: Furosemide 40 MG/4 ML VIAL IVP SCH ×2 (12:05→18:16)
--- NOTE | 2016-11-19 13:41 | Internal Med Progress Note ---
<Susan Gautam - Last Filed: 11/19/16 13:38> Date of Encounter: 11/19/16 Time of Encounter: 13:38 - Assessment and plan (1) Toxic metabolic encephalopathy Current Visit: Yes Status: Resolved Assessment and plan: resolved Patient is alert and oriented 3. At rest she is moaning continuously in the room; however, she will answer questions appropriately and carry on a conversation. When asked why she is moaning, she states she doesn't know. A female visitor in the room states she has moaned since she was a little girl. (2) Acute respiratory failure Current Visit: Yes Status: Resolved Assessment and plan: acute respiratory failure resolved Patient is chronically on 2 L supplemental oxygen via nasal cannula Qualifiers: Respiratory failure complication: hypoxia Qualified Code(s): J96.01 - Acute respiratory failure with hypoxia (3) ANNALEE (acute kidney injury) Current Visit: Yes Status: Acute Assessment and plan: acute on chronic kidney injury Patient has CKD 3, baseline GFR 30s Cr 1.4-1.6 continue to monitor, repeat labs in AM (4) Congestive heart failure with cardiomyopathy Current Visit: Yes Status: Chronic Assessment and plan: echo 09/2016: LV 35-40%, moderate global reduction in LV systolic function. (5) Atrial fibrillation Current Visit: Yes Status: Chronic Assessment and plan: rate controlled on Coreg Anticoagulated on Xarelto Qualifiers: Atrial fibrillation type: permanent Qualified Code(s): I48.2 - Chronic atrial fibrillation (6) CAD (coronary artery disease) Current Visit: Yes Status: Chronic Qualifiers: Coronary Disease-Associated Artery/Lesion type: bypass graft [place] vs. transplanted heart: [place] heart Associated angina: with stable angina Qualified Code(s): I25.708 - Atherosclerosis of coronary artery bypass graft(s) , unspecified, with other forms of angina pectoris (7) CKD (chronic kidney disease) stage 3, GFR 30-59 ml/min Current Visit: Yes Status: Chronic (8) Diabetes mellitus type 2, insulin dependent Current Visit: Yes Status: Chronic Assessment and plan: Accu-Checks and sliding scale (9) DVT prophylaxis Current Visit: Yes Status: Acute Assessment and plan: anticoagulated on Xarelto SCDs - Subjective Interval history: Patient seen and examined. Denies pain at this time. Would like to eat. - Constitutional Vitals: Temp Pulse Resp BP Pulse Ox 97.4 F L 102 16 119/76 99 11/19/16 11:01 11/19/16 11:01 11/19/16 11:01 11/19/16 11:01 11/19/16 11:01 General appearance: Present: cooperative, A&O X 3 - Head Head exam: Present: atraumatic, normocephalic - Eye Eye exam: Present: PERRL, conjuntiva pink, sclera anicteric Pupils: Present: PERRL - Neck Neck exam general surgery: Present: supple - Respiratory Respiratory exam: Present: rales, rhonchi - Cardiovascular Cardiovascular exam: Present: irregular rhythm, +S1, +S2 - GI/Abdominal GI/Abdominal exam: Present: soft. Absent: tenderness - Extremities Exam Extremities exam: Present: pedal edema, warm. Absent: tenderness Additional comments: Strength 5 out of 5 in all 4 extremities. All toes of the left foot have been surgically removed. - Neurological Exam Neurological exam: Present: alert, CN II-XII intact, oriented X3 - Skin Skin exam: Present: dry, intact, warm Internal Medicine: Result - Labs CBC & Chem 7: 11/19/16 04:03 11/19/16 04:03 Labs: Short CBC 11/19/16 Range/Units 04:03 WBC 8.8 (4.3-11.1) K/mcL Hgb 9.2 L (11.5-15.4) g/dL Hct 30.2 L (35.3-44.9) % Plt Count 194 (140-400) K/mcL Neutrophils # 8.2 (1.6-8.9) K/mcL BMP 11/18/16 11/19/16 20:37 04:03 Sodium 140 Potassium 5.5 H 4.9 H Chloride 100 Carbon Dioxide 30 H BUN 71 H D Creatinine 2.85 H Glucose 213 H Calcium 9.4 Cardiac Enzymes 11/18/16 11/19/16 Range/Units 20:37 04:03 Troponin I 0.01 0.00 (0-0.03) ng/mL - ABG Interpretation ABG results: ABG ABG pH 7.32 pH Units (7.32-7.45) 11/18/16 23:27 ABG pCO2 62 mmHg (35-45) H 11/18/16 23:27 ABG pO2 94 mmHg (85-104) 11/18/16 23:27 ABG O2 Saturation 97 % (95-98) 11/18/16 23:27 PT/INR, D-dimer PT 16.8 Seconds (9.4-12.1) H 11/18/16 14:31 Consult Discharge Plan - Plan Referrals: NO,PCP [Primary Care Provider] - <Ochoa Tripp - Last Filed: 11/19/16 17:36> Date of Encounter: 11/19/16 - Assessment and plan (1) Toxic metabolic encephalopathy Current Visit: Yes Status: Resolved (2) Acute and chronic respiratory failure with hypercapnia Current Visit: Yes Status: Acute Assessment and plan: Improving with current treatment. (3) Acute exacerbation of CHF (congestive heart failure) Current Visit: Yes Status: Acute Assessment and plan: Doing somewhat better. Continue current plan. Qualifiers: Congestive heart failure type: systolic Qualified Code(s): I50.23 - Acute on chronic systolic (congestive) heart failure (4) Atrial fibrillation Current Visit: Yes Status: Chronic Qualifiers: Atrial fibrillation type: permanent Qualified Code(s): I48.2 - Chronic atrial fibrillation (5) CAD (coronary artery disease) Current Visit: Yes Status: Chronic Qualifiers: Coronary Disease-Associated Artery/Lesion type: bypass graft [place] vs. transplanted heart: [place] heart Associated angina: with stable angina Qualified Code(s): I25.708 - Atherosclerosis of coronary artery bypass graft(s) , unspecified, with other forms of angina pectoris (6) CKD (chronic kidney disease) stage 3, GFR 30-59 ml/min Current Visit: Yes Status: Chronic (7) Diabetes mellitus type 2, insulin dependent Current Visit: Yes Status: Chronic - Constitutional Vitals: Temp Pulse Resp BP Pulse Ox 97.8 F 121 14 130/62 92 11/19/16 16:14 11/19/16 16:14 11/19/16 16:14 11/19/16 16:14 11/19/16 16:14 Internal Medicine: Result - Labs CBC & Chem 7: 11/19/16 04:03 11/19/16 04:03 Labs: Short CBC 11/19/16 Range/Units 04:03 WBC 8.8 (4.3-11.1) K/mcL Hgb 9.2 L (11.5-15.4) g/dL Hct 30.2 L (35.3-44.9) % Plt Count 194 (140-400) K/mcL Neutrophils # 8.2 (1.6-8.9) K/mcL BMP 11/18/16 11/19/16 20:37 04:03 Sodium 140 Potassium 5.5 H 4.9 H Chloride 100 Carbon Dioxide 30 H BUN 71 H D Creatinine 2.85 H Glucose 213 H Calcium 9.4 Cardiac Enzymes 11/18/16 11/19/16 Range/Units 20:37 04:03 Troponin I 0.01 0.00 (0-0.03) ng/mL - ABG Interpretation ABG results: ABG ABG pH 7.32 pH Units (7.32-7.45) 11/18/16 23:27 ABG pCO2 62 mmHg (35-45) H 11/18/16 23:27 ABG pO2 94 mmHg (85-104) 11/18/16 23:27 ABG O2 Saturation 97 % (95-98) 11/18/16 23:27 PT/INR, D-dimer PT 16.8 Seconds (9.4-12.1) H 11/18/16 14:31 - Attending Attestation I examined this patient and my medical decision-making was reviewed with the Resident Physician on 11/19/16. I agree with the documented findings, disposition and treatment plan as described except to the extent set forth below. Ms. Low is currently in observation for acute encephalopathy and acute on chronic resp failure. Ms Low is much more alert today. She was interactive and talkative. No fever or chills. Exam Alert. Comfortable Heart reg Wheeze heard I/P 1. Acute encephalopathy related to narcotic 2. Acute on chronic hypercarbic resp failure Further diagnoses and plan as above. Probable d/c tomorrow.
[2016-11-19] MEDS: Gabapentin 300 MG CAPSULE PO SCH ×2 (14:28→20:08)
--- NOTE | 2016-11-19 18:08 | Electrocardiograph Report ---
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
[2016-11-19] MEDS: *HR* Rivaroxaban 15 MG TABLET PO SCH (18:17)
[2016-11-19] MEDS: Acetaminophen 325 MG TABLET PO PRN (23:44)
[2016-11-20] MEDS: Ipratropium/Albuterol Neb 3 ML IH SCH ×5 (03:37→20:50)
[2016-11-20 05:37] LABS: Hematocrit 29.4 % (35.3-44.9); Hemoglobin 9.2 g/dL (11.5-15.4); Mean Corpuscular HGB Conc 31.3 g/dL (31.6-35.5); Mean Corpuscular Hemoglobin 27.4 pg (28.0-33.3); Mean Corpuscular Volume 87.5 fL (83.0-100.0); Mean Platelet Volume 11.4 fL (9.4-12.4); Platelet Count 233 K/mcL (140-400); Red Blood Count 3.36 M/mcL (3.82-4.97); Red Cell Distribution Width 14.6 % (11.5-14.5)
[2016-11-20 05:51] LABS: Calcium 9.3 mg/dL (8.6-10.8); Potassium 5.1 mEq/L (3.5-4.5)
[2016-11-20] MEDS: Gabapentin 300 MG CAPSULE PO SCH ×3 (08:43→21:37)
[2016-11-20] MEDS: Isosorbide MONOnitrate (24 HR) 30 MG TAB.ER.24H PO SCH (08:43)
[2016-11-20] MEDS: Aspirin Enteric Coated 81 MG Tablet PO SCH (08:43)
[2016-11-20] MEDS: Insulin LISPRO 300 UNITS/3 ML VIAL SQ SCH ×4 (08:43→21:41)
[2016-11-20] MEDS: amLODIPine 5 MG TABLET PO SCH (08:43)
[2016-11-20] MEDS ORDERED: Spironolactone 25 MG TABLET PO SCH (09:00)
[2016-11-20] MEDS: Furosemide 40 MG/4 ML VIAL IVP SCH ×2 (10:38→16:36)
--- NOTE | 2016-11-20 15:17 | Internal Med Progress Note ---
Date of Encounter: 11/20/16 Time of Encounter: 10:00 - Assessment and plan (1) Toxic metabolic encephalopathy Current Visit: Yes Status: Resolved Assessment and plan: Improved. She is apparently at baseline mental status. Narcotics currently on hold and she has not been asking for them. Continue supportive care. (2) Acute and chronic respiratory failure with hypercapnia Current Visit: Yes Status: Acute Assessment and plan: Improving with current treatment. (3) Acute exacerbation of CHF (congestive heart failure) Current Visit: Yes Status: Acute Assessment and plan: Continuing to improve. Decrease Lasix dose due to increasing creatinine. Qualifiers: Congestive heart failure type: systolic Qualified Code(s): I50.23 - Acute on chronic systolic (congestive) heart failure (4) Atrial fibrillation Current Visit: Yes Status: Chronic Assessment and plan: rate controlled on Coreg Anticoagulated on Xarelto Qualifiers: Atrial fibrillation type: permanent Qualified Code(s): I48.2 - Chronic atrial fibrillation (5) CAD (coronary artery disease) Current Visit: Yes Status: Chronic Assessment and plan: No acute issues. Qualifiers: Coronary Disease-Associated Artery/Lesion type: bypass graft [place] vs. transplanted heart: [place] heart Associated angina: with stable angina Qualified Code(s): I25.708 - Atherosclerosis of coronary artery bypass graft(s) , unspecified, with other forms of angina pectoris (6) CKD (chronic kidney disease) stage 3, GFR 30-59 ml/min Current Visit: Yes Status: Chronic Assessment and plan: Now has a component of ANNALEE. Decreasing Lasix dose and recheck tomorrow. (7) Diabetes mellitus type 2, insulin dependent Current Visit: Yes Status: Chronic Assessment and plan: Accu-Checks and sliding scale - Subjective Interval history: Ms. Low is currently in observation for acute encephalopathy and resp failure. She is high risk due to potential for worsening resp status. Ms. Low is up in a chair. She denies breathing issues at this time. She is pleasant in conversation but intermittently confused. Denies CP. No GI issues. Legs still swollen L greater than R. No fever or chills. - Constitutional Vitals: Temp Pulse Resp BP Pulse Ox 97.8 F 88 20 126/80 96 11/20/16 06:31 11/20/16 06:31 11/20/16 11:34 11/20/16 06:31 11/20/16 11:34 General appearance: Present: cooperative, A&O X 3, pleasant - Head Head exam: Present: normocephalic - Eye Eye exam: Present: conjuntiva pink - ENT ENT exam: Present: mucous membranes dry - Respiratory Respiratory exam: Present: decreased breath sounds, rales - Cardiovascular Cardiovascular exam: Present: RRR. Absent: tachycardia - GI/Abdominal GI/Abdominal exam: Present: normal bowel sounds, soft. Absent: tenderness - Extremities Exam Extremities exam: Present: warm Additional comments: Both legs swollen but L greater than R. 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 Absent: rash Internal Medicine: Result - Labs CBC & Chem 7: 11/20/16 04:47 11/20/16 04:47 Labs: Short CBC 11/20/16 Range/Units 04:47 WBC 12.2 H (4.3-11.1) K/mcL Hgb 9.2 L (11.5-15.4) g/dL Hct 29.4 L (35.3-44.9) % Plt Count 233 (140-400) K/mcL BMP 11/20/16 04:47 Sodium 137 Potassium 5.1 H Chloride 99 Carbon Dioxide 28 BUN 88 H Creatinine 2.52 H Glucose 238 H Calcium 9.3 - ABG Interpretation ABG results: ABG ABG pH 7.32 pH Units (7.32-7.45) 11/18/16 23:27 ABG pCO2 62 mmHg (35-45) H 11/18/16 23:27 ABG pO2 94 mmHg (85-104) 11/18/16 23:27 ABG O2 Saturation 97 % (95-98) 11/18/16 23:27 PT/INR, D-dimer PT 16.8 Seconds (9.4-12.1) H 11/18/16 14:31 Consult Discharge Plan - Plan Referrals: Calixto Clinton DO [Partnered Physician] - 11/23/16 12:00 pm
[2016-11-20] MEDS ORDERED: Ipratropium/Albuterol Neb 3 ML IH PRN (15:33)
[2016-11-20] MEDS ORDERED: NON-FORMULARY MEDICATION 1 EACH EACH (Oxygen [Oxygen] 2 L) NS SCH (15:45)
[2016-11-20] MEDS: *HR* Rivaroxaban 15 MG TABLET PO SCH (16:36)
[2016-11-20] MEDS ORDERED: Albuterol 2.5 MG/3 ML NEBULIZER IH SCH (17:00)
[2016-11-20] MEDS ORDERED: NON-FORMULARY MEDICATION 1 EACH EACH (Pravastatin Sodium [Pravachol] 80 MG) PO SCH (18:00)
[2016-11-20] MEDS ORDERED: NON-FORMULARY MEDICATION 1 EACH EACH (Losartan Potassium [Cozaar] 50 MG) PO SCH (21:00)
[2016-11-20] MEDS ORDERED: Insulin DETEMIR 100 UNIT/ML X5UNITS SQ SCH (21:00)
[2016-11-20] MEDS ORDERED: Gabapentin 300 MG CAPSULE PO SCH (21:00)
[2016-11-20] MEDS: Clotrimazole 1% CRM 15 GM TUBE TP SCH (21:40)
[2016-11-21] MEDS: Ipratropium/Albuterol Neb 3 ML IH SCH ×6 (00:40→20:23)
[2016-11-21 06:18] LABS: Mean Corpuscular Hemoglobin 27.8 pg (28.0-33.3); Mean Corpuscular Volume 89.5 fL (83.0-100.0); Mean Platelet Volume 11.1 fL (9.4-12.4); Platelet Count 230 K/mcL (140-400); Red Blood Count 3.24 M/mcL (3.82-4.97); Red Cell Distribution Width 14.6 % (11.5-14.5)
[2016-11-21 06:36] LABS: Calcium 9.2 mg/dL (8.6-10.8); Potassium 4.2 mEq/L (3.5-4.5)
[2016-11-21] MEDS: Insulin LISPRO 300 UNITS/3 ML VIAL SQ SCH ×4 (08:20→21:28)
[2016-11-21] MEDS: Aspirin Enteric Coated 81 MG Tablet PO SCH (08:20)
[2016-11-21] MEDS: Gabapentin 300 MG CAPSULE PO SCH ×3 (08:20→21:28)
[2016-11-21] MEDS: Isosorbide MONOnitrate (24 HR) 30 MG TAB.ER.24H PO SCH (08:20)
[2016-11-21] MEDS: *HR* SitaGLIPtin 25 MG TABLET PO SCH (08:20)
[2016-11-21] MEDS: Furosemide 40 MG/4 ML VIAL IVP SCH ×2 (08:21→17:25)
[2016-11-21] MEDS: Clotrimazole 1% CRM 15 GM TUBE TP SCH ×2 (08:21→21:28)
[2016-11-21] MEDS: amLODIPine 5 MG TABLET PO SCH (08:22)
[2016-11-21] MEDS ORDERED: Isosorbide MONOnitrate (24 HR) 30 MG TAB.ER.24H PO SCH (09:00)
[2016-11-21] MEDS ORDERED: amLODIPine 5 MG TABLET PO SCH (09:00)
[2016-11-21] MEDS ORDERED: NON-FORMULARY MEDICATION 1 EACH EACH (Pantoprazole Sodium [Protonix] 40 MG) PO SCH (09:00)
--- NOTE | 2016-11-21 14:22 | Venous Imaging Report ---
LE Venous Duplex Patient Name:Narda Low Order Number:[id number] Procedure Date:11/20/2016 Date:6Age:81 yrs Gender:Female Location:[facility] Room #: 2NE25 Sales Service Assistant:Mandy Reyna RVT Referring MD:Ochoa Tripp DO infantry senior sergeant:None Reading MD:Aubrey Silva MD Primary Indications:edema, r/o DVT Secondary Indications: Impressions: Bilateral lower extremity: normal superficial and deep exam. Recommendations: After imaging the patient returned to their room. Findings Venous Duplex Results: Right: Venous imaging of the lower extremity reveals full patency and normal vessel compressibility of the right distal iliac, right common femoral, right superficial femoral, right popliteal, right posterior tibial, right peroneal, right great saphenous and right lesser saphenous. Doppler signals in the evaluated veins were normal. Left: Venous imaging of the lower extremity reveals full patency and normal vessel compressibility of the left distal iliac, left common femoral, left superficial femoral, left popliteal, left posterior tibial, left peroneal, left great saphenous and left lesser saphenous. Doppler signals in the evaluated veins were normal. Prior Study: No prior study available for comparison. Lower Extremity Venous Duplex Side Vein Compress Spontaneous Flow Augment Diameter (cm) Depth (cm) Right Distal Iliac Normal Yes Phasic Yes Right Common Femoral Normal Yes Phasic Yes Right Superficial Femoral Normal Yes Phasic Yes Right Popliteal Normal Yes Phasic Yes Right Posterior Tibial Normal Yes Phasic Yes Right Peroneal Normal Yes Phasic Yes Right Great Saphenous Normal Yes Phasic Yes Right Lesser Saphenous Normal Yes Phasic Yes Left Distal Iliac Normal Yes Phasic Yes Left Common Femoral Normal Yes Phasic Yes Left Superficial Femoral Normal Yes Phasic Yes Left Popliteal Normal Yes Phasic Yes Left Posterior Tibial Normal Yes Phasic Yes Left Peroneal Normal Yes Phasic Yes Left Great Saphenous Normal Yes Phasic Yes Left Lesser Saphenous Normal Yes Phasic Yes Updated by Aubrey Silva MD on 11/21/2016 2:14:54 PM electronically signed on 11/21/2016 2:15:17 PM with status of Final
--- NOTE | 2016-11-21 14:50 | Internal Med Progress Note ---
Date of Encounter: 11/21/16 Time of Encounter: 08:00 - Assessment and plan (1) Acute and chronic respiratory failure with hypercapnia Current Visit: Yes Status: Acute Assessment and plan: Improving with current treatment. Continue supportive care for now. (2) Acute exacerbation of CHF (congestive heart failure) Current Visit: Yes Status: Acute Assessment and plan: Decrease Lasix dosing. Hold today and change to PO tomorrow. Qualifiers: Congestive heart failure type: systolic Qualified Code(s): I50.23 - Acute on chronic systolic (congestive) heart failure (3) Atrial fibrillation Current Visit: Yes Status: Chronic Assessment and plan: rate controlled on Coreg Anticoagulated on Xarelto Qualifiers: Atrial fibrillation type: permanent Qualified Code(s): I48.2 - Chronic atrial fibrillation (4) Anemia Current Visit: Yes Status: Suspected Assessment and plan: Check stool guiac. Overall H/H lower than at baseline. Qualifiers: Anemia type: iron deficiency Iron deficiency anemia type: chronic blood loss Qualified Code(s): D50.0 - Iron deficiency anemia secondary to blood loss (chronic) (5) CAD (coronary artery disease) Current Visit: Yes Status: Chronic Assessment and plan: No acute issues. Qualifiers: Coronary Disease-Associated Artery/Lesion type: bypass graft [place] vs. transplanted heart: [place] heart Associated angina: with stable angina Qualified Code(s): I25.708 - Atherosclerosis of coronary artery bypass graft(s) , unspecified, with other forms of angina pectoris (6) CKD (chronic kidney disease) stage 3, GFR 30-59 ml/min Current Visit: Yes Status: Chronic Assessment and plan: Creatinine still elevated. BUN disproportionate. Check stool guiac. (7) Diabetes mellitus type 2, insulin dependent Current Visit: Yes Status: Chronic Assessment and plan: Accu-Checks and sliding scale (8) Toxic metabolic encephalopathy Current Visit: Yes Status: Resolved Assessment and plan: Appears baseline at this time. - Subjective Interval history: Ms. Low is currently in observation for acute encephalopathy and resp failure. She is high risk due to potential for worsening resp status. Ms. Low is eating breakfast. Denies pain at this time. No cough or dyspnea. Slept OK. Wants to leave No GI symptoms. - Constitutional Vitals: Temp Pulse Resp BP Pulse Ox 98.5 F 82 18 128/63 94 11/21/16 06:39 11/21/16 11:29 11/21/16 11:29 11/21/16 11:29 11/21/16 11:29 General appearance: Present: cooperative, A&O X 3, pleasant - Head Head exam: Present: normocephalic - Eye Eye exam: Present: EOMI, conjuntiva pink - ENT ENT exam: Present: mucous membranes dry - Respiratory Respiratory exam: Present: decreased breath sounds, CTAB, prolonged expiratory phase - Cardiovascular Cardiovascular exam: Present: irregular rhythm. Absent: tachycardia - GI/Abdominal GI/Abdominal exam: Present: soft. Absent: tenderness - Extremities Exam Extremities exam: Present: pedal edema, warm Additional comments: Less edema today - Neurological Exam Neurological exam: Present: alert, no focal deficits - Skin Skin exam: Present: warm. Absent: rash Internal Medicine: Result - Labs CBC & Chem 7: 11/21/16 05:46 11/21/16 05:46 Labs: Short CBC 11/21/16 Range/Units 05:46 WBC 10.1 (4.3-11.1) K/mcL Hgb 9.0 L (11.5-15.4) g/dL Hct 29.0 L (35.3-44.9) % Plt Count 230 (140-400) K/mcL BMP 11/21/16 05:46 Sodium 140 Potassium 4.2 Chloride 99 Carbon Dioxide 31 H BUN 94 H Creatinine 2.35 H Glucose 187 H Calcium 9.2 - ABG Interpretation ABG results: ABG ABG pH 7.32 pH Units (7.32-7.45) 11/18/16 23:27 ABG pCO2 62 mmHg (35-45) H 11/18/16 23:27 ABG pO2 94 mmHg (85-104) 11/18/16 23:27 ABG O2 Saturation 97 % (95-98) 11/18/16 23:27 PT/INR, D-dimer PT 16.8 Seconds (9.4-12.1) H 11/18/16 14:31 Consult Discharge Plan - Plan Referrals: Calixto Clinton DO [Partnered Physician] - 11/23/16 12:00 pm
[2016-11-21] MEDS: Acetaminophen 325 MG TABLET PO PRN (15:30)
[2016-11-21] MEDS: *HR* Rivaroxaban 15 MG TABLET PO SCH (17:24)
[2016-11-21 18:09] LABS: CK-BB (CK isoenzymes) 0 % (0-0); CK-MB (CK isoenzymes) 0 % (0-4); CK-MM (CK-isoenzymes) 100 % (96-100)
[2016-11-21 18:09] LABS: CK-BB (CK isoenzymes) 0 % (0-0); CK-MB (CK isoenzymes) 0 % (0-4); CK-MM (CK-isoenzymes) 100 % (96-100)
[2016-11-21] MEDS: Insulin DETEMIR 100 UNIT/ML X5UNITS SQ SCH (21:28)
[2016-11-22] MEDS: Ipratropium/Albuterol Neb 3 ML IH SCH ×7 (00:39→23:49)
[2016-11-22 06:29] LABS: Hemoglobin 9.6 g/dL (11.5-15.4); Mean Corpuscular Hemoglobin 27.6 pg (28.0-33.3); Mean Corpuscular Volume 89.1 fL (83.0-100.0); Platelet Count 243 K/mcL (140-400); Red Blood Count 3.48 M/mcL (3.82-4.97); Red Cell Distribution Width 14.6 % (11.5-14.5)
[2016-11-22 06:32] LABS: Albumin/Globulin Ratio 0.7 (1.1-2.2); Bilirubin,Total 0.4 mg/dL (0.2-1.2); Calcium 9.2 mg/dL (8.6-10.8); Globulin 4.1 g/dL (2.4-3.5); Potassium 4.8 mEq/L (3.5-4.5); Total Protein 7.1 g/dL (6.0-8.3)
[2016-11-22] MEDS: Insulin LISPRO 300 UNITS/3 ML VIAL SQ SCH ×4 (10:54→20:48)
[2016-11-22] MEDS: Isosorbide MONOnitrate (24 HR) 30 MG TAB.ER.24H PO SCH (11:01)
[2016-11-22] MEDS: *HR* SitaGLIPtin 25 MG TABLET PO SCH (11:01)
[2016-11-22] MEDS: Gabapentin 300 MG CAPSULE PO SCH ×3 (11:01→20:47)
[2016-11-22] MEDS: Furosemide 40 MG TABLET PO SCH (11:02)
[2016-11-22] MEDS: Aspirin Enteric Coated 81 MG Tablet PO SCH (11:02)
[2016-11-22] MEDS: amLODIPine 5 MG TABLET PO SCH (11:02)
[2016-11-22] MEDS: Clotrimazole 1% CRM 15 GM TUBE TP SCH ×2 (11:02→20:48)
--- NOTE | 2016-11-22 14:23 | Internal Med Progress Note ---
Date of Encounter: 11/22/16 Time of Encounter: 08:00 - Assessment and plan (1) Acute and chronic respiratory failure with hypercapnia Current Visit: Yes Status: Acute Assessment and plan: Continues to slowly improve. Anticipate will be able to d/c to SNF tomorrow. (2) Acute exacerbation of CHF (congestive heart failure) Current Visit: Yes Status: Acute Assessment and plan: Changed Lasix to PO today. Overall has improved. Qualifiers: Congestive heart failure type: systolic Qualified Code(s): I50.23 - Acute on chronic systolic (congestive) heart failure (3) Atrial fibrillation Current Visit: Yes Status: Chronic Assessment and plan: rate controlled on Coreg Anticoagulated on Xarelto Qualifiers: Atrial fibrillation type: permanent Qualified Code(s): I48.2 - Chronic atrial fibrillation (4) Anemia Current Visit: Yes Status: Suspected Assessment and plan: Check stool guiac. Overall H/H lower than at baseline but improved today. Continue to follow. Qualifiers: Anemia type: iron deficiency Iron deficiency anemia type: chronic blood loss Qualified Code(s): D50.0 - Iron deficiency anemia secondary to blood loss (chronic) (5) CAD (coronary artery disease) Current Visit: Yes Status: Chronic Assessment and plan: No acute issues. Qualifiers: Coronary Disease-Associated Artery/Lesion type: bypass graft [place] vs. transplanted heart: [place] heart Associated angina: with stable angina Qualified Code(s): I25.708 - Atherosclerosis of coronary artery bypass graft(s) , unspecified, with other forms of angina pectoris (6) CKD (chronic kidney disease) stage 3, GFR 30-59 ml/min Current Visit: Yes Status: Chronic Assessment and plan: Renal function improved today. Follow tomorrow. (7) Diabetes mellitus type 2, insulin dependent Current Visit: Yes Status: Chronic Assessment and plan: Accu-Checks and sliding scale - Subjective Interval history: Ms. Low is currently in observation for acute encephalopathy and resp failure. She is moderate to high risk due to potential for worsening resp status. Ms. Low just finished breakfast. She says she feels OK. No pain. No dyspnea. Legs beginning to feel better. No GI issues or new problems overnight. - Constitutional Vitals: Temp Pulse Resp BP Pulse Ox 97.5 F L 102 20 136/79 95 11/22/16 11:37 11/22/16 11:37 11/22/16 11:37 11/22/16 11:37 11/22/16 11:37 General appearance: Present: cooperative, A&O X 3, pleasant - Head Head exam: Present: normocephalic - Eye Eye exam: Present: conjuntiva pink. Absent: scleral icterus - ENT ENT exam: Present: mucous membranes dry - Respiratory Respiratory exam: Present: decreased breath sounds. Absent: rhonchi, wheezes - Cardiovascular Cardiovascular exam: Present: RRR. Absent: tachycardia - GI/Abdominal GI/Abdominal exam: Present: soft. Absent: mass, tenderness - Extremities Exam Extremities exam: Present: pedal edema, warm. Absent: tenderness - Neurological Exam Neurological exam: Present: alert, no focal deficits - Skin Skin exam: Present: warm. Absent: rash Internal Medicine: Result - Labs CBC & Chem 7: 11/22/16 05:56 11/22/16 05:56 Labs: Short CBC 11/22/16 Range/Units 05:56 WBC 8.8 (4.3-11.1) K/mcL Hgb 9.6 L (11.5-15.4) g/dL Hct 31.0 L (35.3-44.9) % Plt Count 243 (140-400) K/mcL BMP 11/22/16 05:56 Sodium 142 Potassium 4.8 H Chloride 103 Carbon Dioxide 28 BUN 75 H Creatinine 1.70 H Glucose 123 H Calcium 9.2 Liver Function 11/22/16 Range/Units 05:56 Total Bilirubin 0.4 (0.2-1.2) mg/dL AST 25 (5-34) Units/L ALT 21 (0-55) Units/L Alkaline Phosphatase 44 (38-126) Units/L Albumin 3.0 L (3.5-5.0) g/dL - ABG Interpretation ABG results: ABG ABG pH 7.32 pH Units (7.32-7.45) 11/18/16 23:27 ABG pCO2 62 mmHg (35-45) H 11/18/16 23:27 ABG pO2 94 mmHg (85-104) 11/18/16 23:27 ABG O2 Saturation 97 % (95-98) 11/18/16 23:27 PT/INR, D-dimer PT 16.8 Seconds (9.4-12.1) H 11/18/16 14:31 Consult Discharge Plan - Plan Referrals: Calixto Clinton DO [Partnered Physician] - 11/23/16 12:00 pm
[2016-11-22] MEDS: *HR* Rivaroxaban 15 MG TABLET PO SCH (17:25)
[2016-11-22] MEDS: Acetaminophen 325 MG TABLET PO PRN (17:25)
[2016-11-22] MEDS: Insulin DETEMIR 100 UNIT/ML X5UNITS SQ SCH (20:48)
[2016-11-23] MEDS: Ipratropium/Albuterol Neb 3 ML IH SCH ×3 (03:44→11:25)
[2016-11-23 05:19] LABS: Hematocrit 31.7 % (35.3-44.9); Hemoglobin 9.5 g/dL (11.5-15.4); Mean Corpuscular Hemoglobin 26.8 pg (28.0-33.3); Mean Corpuscular Volume 89.3 fL (83.0-100.0); Mean Platelet Volume 10.7 fL (9.4-12.4); Platelet Count 239 K/mcL (140-400); Red Blood Count 3.55 M/mcL (3.82-4.97); Red Cell Distribution Width 14.3 % (11.5-14.5)
[2016-11-23 05:44] LABS: Calcium 9.3 mg/dL (8.6-10.8)
[2016-11-23 05:48] LABS: Potassium 4.6 mEq/L (3.5-4.5)
[2016-11-23] MEDS: *HR* SitaGLIPtin 25 MG TABLET PO SCH (08:49)
[2016-11-23] MEDS: Gabapentin 300 MG CAPSULE PO SCH (08:49)
[2016-11-23] MEDS: Aspirin Enteric Coated 81 MG Tablet PO SCH (08:49)
[2016-11-23] MEDS: amLODIPine 5 MG TABLET PO SCH (08:49)
[2016-11-23] MEDS: Isosorbide MONOnitrate (24 HR) 30 MG TAB.ER.24H PO SCH (08:49)
[2016-11-23] MEDS: Furosemide 40 MG TABLET PO SCH (08:49)
[2016-11-23] MEDS: Insulin LISPRO 300 UNITS/3 ML VIAL SQ SCH ×2 (08:50→13:47)
[2016-11-23] MEDS: Clotrimazole 1% CRM 15 GM TUBE TP SCH (08:51)
[2016-11-23 11:54] VITALS: BP 126/83
--- NOTE | 2016-11-23 12:13 | Discharge Summary ---
Date of Encounter: 11/23/16 Time of Encounter: 12:20 - Discharge Diagnosis (1) Acute and chronic respiratory failure with hypercapnia Priority: Primary Status: Acute (2) Acute exacerbation of CHF (congestive heart failure) Priority: Primary Status: Acute Qualifiers: Congestive heart failure type: systolic Qualified Code(s): I50.23 - Acute on chronic systolic (congestive) heart failure (3) Atrial fibrillation Priority: Secondary Status: Chronic Qualifiers: Atrial fibrillation type: permanent Qualified Code(s): I48.2 - Chronic atrial fibrillation (4) Anemia Priority: Secondary Status: Suspected Qualifiers: Anemia type: iron deficiency Iron deficiency anemia type: chronic blood loss Qualified Code(s): D50.0 - Iron deficiency anemia secondary to blood loss (chronic) (5) CAD (coronary artery disease) Priority: Secondary Status: Chronic Qualifiers: Coronary Disease-Associated Artery/Lesion type: bypass graft [place] vs. transplanted heart: [place] heart Associated angina: with stable angina Qualified Code(s): I25.708 - Atherosclerosis of coronary artery bypass graft(s) , unspecified, with other forms of angina pectoris (6) CKD (chronic kidney disease) stage 3, GFR 30-59 ml/min Priority: Secondary Status: Chronic (7) Diabetes mellitus type 2, insulin dependent Priority: Secondary Status: Chronic (8) [id number]-[id number] kidney injury Priority: Secondary Status: Resolved (9) Toxic metabolic encephalopathy Priority: Primary Status: Resolved - Discharge Medications Home Medications: Aspirin Enteric Coated [Aspirin EC] 81 mg PO QAM 04/26/15 [History] Furosemide [Lasix] 40 mg PO QAM 04/26/15 [History] Rivaroxaban [Xarelto] 15 mg PO QPM 04/26/15 [History] SitaGLIPtin [Januvia] 25 mg PO DAILY 04/26/15 [History] Insulin Glargine [Lantus] 30 unit SQ HS 06/17/15 [History] Diphenoxylate/Atropine [Lomotil 2.5 mg/0.025 mg] 1 tab PO QID PRN 01/06/16 [ History] Pravastatin Sodium [Pravachol] 80 mg PO QPM 01/06/16 [History] Albuterol Sulfate [Albuterol Inhaler] 2 puff IH Q4HR PRN 04/06/16 [History] Amlodipine [Norvasc] 5 mg PO DAILY 04/06/16 [History] Gabapentin [Neurontin] 300 mg PO TID 04/06/16 [History] Ondansetron [Zofran] 8 mg PO Q8HR PRN #10 tablet 08/24/16 [Rx] Colestipol HCl [Colestid] 2 gm PO BID PRN 10/06/16 [History] Ferrous Sulfate [Iron] 325 mg PO DAILY 10/06/16 [History] Pantoprazole Sodium [Protonix] 40 mg PO DAILY 10/06/16 [History] Isosorbide MONOnitrate (24 HR) [Imdur] 30 mg PO DAILY #30 tab.er.24h 10/07/16 [ Rx] Carvedilol [Coreg] 25 mg PO BID 11/18/16 [History] Hydraguard Cream 1 appl TP DAILY 11/18/16 [History] Ipratropium/Albuterol Neb [Duoneb] 3 ml IH Q6HR PRN 11/18/16 [History] Losartan Potassium [Cozaar] 50 mg PO BID 11/18/16 [History] Miconazole Nitrate [Lotrimin AF] 1 appl TP BID 11/18/16 [History] Oxygen 2 l NS CONT 11/18/16 [History] Furosemide [Lasix] 40 mg PO DAILY tablet 11/23/16 [Rx] Losartan [Cozaar] 50 mg PO BID tablet 11/23/16 [Rx] Allergies/Adverse Reactions: Allergies Amoxicillin [From Augmentin] Adverse Reaction (Verified 06/17/15 19:53) Diarrhea ciprofloxacin [From Cipro] Adverse Reaction (Verified 06/17/15 19:53) Vomiting clavulanic acid [From Augmentin] Adverse Reaction (Verified 06/17/15 19:53) Diarrhea doxycycline Adverse Reaction (Verified 06/17/15 19:53) Diarrhea lansoprazole Adverse Reaction (Verified 06/17/15 19:53) Diarrhea Sulfa (Sulfonamide Antibiotics) Adverse Reaction (Verified 06/17/15 19:53) Vomiting sulfamethoxazole [From Bactrim] Adverse Reaction (Verified 06/17/15 19:53) Diarrhea trimethoprim Adverse Reaction (Verified 06/17/15 19:53) Diarrhea Date of admission: 11/18/16 17:26 Primary care physician: PCP NO Consults: 11/19/16 12:18 Consult to Small Lot Operator [CONS] Routine Reason for SW Consult: d/c planning Discharging clinician: Ochoa Tripp Anticipated date of discharge: 11/23/16 - Patient Status Disposition: Transfer Intermediate Care Fac Condition: Fair Functional capacity at discharge: uses cane/walker Overall status at discharge: patient is progressing back to baseline - Discharge Instructions Follow Up With: Calixto Clinton DO [Partnered Physician] - 11/23/16 12:00 pm Forms: ED Satisfaction Letter - Diet and Activity Activity: increase activity as tolerated Diet: diabetic diet, low fat, low cholesterol Hospital course: Ms. Low is a 81 year old female with hx of CHF brought to ED with confusion. She was evaluated in ED and found to have hypercarbic resp failure. Narcan given with improvement. She was then admitted. Ms. Low was admitted to [facility]. She was started on IV Lasix for diuresis of her acute CHF. She had slow improvement in her respiratory and cardiac status. Lasix was held and dose adjusted when creatinine began to increase. Creatinine improved to baseline with changes. Overall her mental status appeared to be at baseline throughout hospitalization. Hfer respiratory status improved with diuresis. She was noted to be anemic and had been on iron prior to admission. She will need continued follow up. There was no active bleeding noted. On 11/23/16 she was doing well. She was alert and interactive and afebrile. Her vitals were stable. At that time she was felt ready for discharge to [facility]. - Time Spent with Patient Total time spent providing and/or coordinating discharge services: 43min - Constitutional Vitals: Temp Pulse Resp BP Pulse Ox 97.7 F 100 15 126/83 96 11/23/16 11:49 11/23/16 11:49 11/23/16 11:49 11/23/16 11:49 11/23/16 11:49 General appearance: Present: cooperative, A&O X 3, pleasant - Head Head exam: Present: normocephalic - Eye Eye exam: Present: conjuntiva pink - ENT ENT exam: Present: mucous membranes dry - Respiratory Respiratory exam: Present: decreased breath sounds, CTAB. Absent: rhonchi, wheezes - Cardiovascular Cardiovascular exam: Present: irregular rhythm. Absent: tachycardia - GI/Abdominal GI/Abdominal exam: Present: soft. Absent: tenderness - Extremities Exam Extremities exam: Present: warm. Absent: tenderness - Neurological Exam Neurological exam: Present: alert, no focal deficits - Skin Skin exam: Present: dry, warm. Absent: rash
--- NOTE | 2016-11-23 12:44 | Physician Discharge Referral ---
ExtendedCare Referral Info Provider in Charge: Ochoa Tripp DO Provider in Charge after Transfer: PCP Institutional Level of Care: Intermediate - MR - Diagnosis (1) Acute and chronic respiratory failure with hypercapnia Priority: Primary Status: Acute (2) Acute exacerbation of CHF (congestive heart failure) Priority: Primary Status: Acute (3) Atrial fibrillation Priority: Secondary Status: Chronic (4) Anemia Priority: Secondary Status: Suspected (5) CAD (coronary artery disease) Priority: Secondary Status: Chronic (6) CKD (chronic kidney disease) stage 3, GFR 30-59 ml/min Priority: Secondary Status: Chronic (7) Diabetes mellitus type 2, insulin dependent Priority: Secondary Status: Chronic (8) [id number] kidney injury Priority: Secondary Status: Resolved (9) Toxic metabolic encephalopathy Priority: Primary Status: Resolved - Transfer Medications Home Medications: Aspirin Enteric Coated [Aspirin EC] 81 mg PO QAM 04/26/15 [History] Furosemide [Lasix] 40 mg PO QAM 04/26/15 [History] Rivaroxaban [Xarelto] 15 mg PO QPM 04/26/15 [History] SitaGLIPtin [Januvia] 25 mg PO DAILY 04/26/15 [History] Insulin Glargine [Lantus] 30 unit SQ HS 06/17/15 [History] Diphenoxylate/Atropine [Lomotil 2.5 mg/0.025 mg] 1 tab PO QID PRN 01/06/16 [ History] Pravastatin Sodium [Pravachol] 80 mg PO QPM 01/06/16 [History] Albuterol Sulfate [Albuterol Inhaler] 2 puff IH Q4HR PRN 04/06/16 [History] Amlodipine [Norvasc] 5 mg PO DAILY 04/06/16 [History] Gabapentin [Neurontin] 300 mg PO TID 04/06/16 [History] Ondansetron [Zofran] 8 mg PO Q8HR PRN #10 tablet 08/24/16 [Rx] Colestipol HCl [Colestid] 2 gm PO BID PRN 10/06/16 [History] Ferrous Sulfate [Iron] 325 mg PO DAILY 10/06/16 [History] Pantoprazole Sodium [Protonix] 40 mg PO DAILY 10/06/16 [History] Isosorbide MONOnitrate (24 HR) [Imdur] 30 mg PO DAILY #30 tab.er.24h 10/07/16 [ Rx] Carvedilol [Coreg] 25 mg PO BID 11/18/16 [History] Hydraguard Cream 1 appl TP DAILY 11/18/16 [History] Ipratropium/Albuterol Neb [Duoneb] 3 ml IH Q6HR PRN 11/18/16 [History] Losartan Potassium [Cozaar] 50 mg PO BID 11/18/16 [History] Miconazole Nitrate [Lotrimin AF] 1 appl TP BID 11/18/16 [History] Oxygen 2 l NS CONT 11/18/16 [History] Furosemide [Lasix] 40 mg PO DAILY tablet 11/23/16 [Rx] Losartan [Cozaar] 50 mg PO BID tablet 11/23/16 [Rx] Allergies/Adverse Reactions: Allergies Amoxicillin [From Augmentin] Adverse Reaction (Verified 06/17/15 19:53) Diarrhea ciprofloxacin [From Cipro] Adverse Reaction (Verified 06/17/15 19:53) Vomiting clavulanic acid [From Augmentin] Adverse Reaction (Verified 06/17/15 19:53) Diarrhea doxycycline Adverse Reaction (Verified 06/17/15 19:53) Diarrhea lansoprazole Adverse Reaction (Verified 06/17/15 19:53) Diarrhea Sulfa (Sulfonamide Antibiotics) Adverse Reaction (Verified 06/17/15 19:53) Vomiting sulfamethoxazole [From Bactrim] Adverse Reaction (Verified 06/17/15 19:53) Diarrhea trimethoprim Adverse Reaction (Verified 06/17/15 19:53) Diarrhea - Respiratory Orders Oxygen / L per min (Maintain saturation greater than 90%) Smoking Cessation: Smoking cessation has been advised. For more information, call the [place] Tobacco Quit Line at 3-037-MRYA-NOW. - Lab Orders Lab Orders: 2 Step Mantoux Test per State regulation - Ancillary Orders May use pressure relief devices daily prn, May consult with Dentist, Lockstitch Machine Operator, Coroner PRN - Advance Directives Code Status: DNR-Arrest/Don't Intubate - History and Physical History/Physical reviewed & approved w/add comments: Pt more alert and interactive. Less dyspnea and wheezing. - Mobility Orders Ambulate - Rehabiliation Orders Rehab Potential: Fair Rehab Orders: Evaluation for Physical Therapy, Evaluation for Occupational Therapy - Treatments Skin tear care topically daily PRN per policy, May check for fecal impaction rectally daily PRN, Fleet enema rectally every other day PRN cleansing purposes - Diet Orders No Concentrated Sweets, Cardiac CERTIFICATION: I certify that the transfer of the above named patient to an Extended Care Facility is necessary for the continuing treatment of the diagnosis listed. The above information is true and accurate reflection of patient's current condition. Confidential - Redisclosure prohibited without a patient's written consent.
[2016-11-23 14:29] LABS: CK Total (Ck Isoenzymes) 546 U/L (20-180)
[2016-11-23 14:40] LABS: CK Total (Ck Isoenzymes) 354 U/L (20-180)
== END 2016-11-23 15:45 ==
LOC: EMEROO 13:54 → 2NENU 13:54
PROVIDERS: ADMIT Hospitalist; ATTEND Internal Medicine

== ENCOUNTER 2016-12-16 15:55 | Observation (INO) ==
[2016-12-16 16:42] LABS: Basophils % 0.2 %; Eosinophils # 0.2 K/mcL (0.0-0.6); Eosinophils % 2.3 %; Hematocrit 25.5 % (35.3-44.9); Immature Granulocytes % 1.1 % (0-4); Lymphocytes # 0.9 K/mcL (0.6-4.6); Lymphocytes % 10.4 %; Mean Corpuscular HGB Conc 29.8 g/dL (31.6-35.5); Mean Corpuscular Hemoglobin 28.1 pg (28.0-33.3); Mean Corpuscular Volume 94.4 fL (83.0-100.0); Monocytes # 0.5 K/mcL (0.0-1.3); Monocytes % 5.6 %; Neutrophils # 6.7 K/mcL (1.6-8.9); Platelet Count 170 K/mcL (140-400); Red Cell Distribution Width 15.6 % (11.5-14.5); Segmented Neutrophils % 80.4 %
[2016-12-16 16:48] LABS: INR 1.6
[2016-12-16 16:50] LABS: Calcium 8.7 mg/dL (8.6-10.8); Potassium 4.4 mEq/L (3.5-4.5)
[2016-12-16 16:51] LABS: Activated Partial Thrombo Time 34.2 Seconds (26.0-36.0)
[2016-12-16 16:52] LABS: Hemoglobin 7.6 g/dL (11.5-15.4)
--- NOTE | 2016-12-16 17:44 | Emergency Department Note ---
Disposition Clinical Impression: Anemia Qualifiers: Anemia type: unspecified type Qualified Code(s): D64.9 - Anemia, unspecified Disposition: Admitted As Inpatient Referrals: NO,PCP [Primary Care Provider] - Forms: ED Satisfaction Letter General Adult HPI - General Chief complaint: ED Recheck/Abnormal Lab/Rx Stated complaint: Low Hgb Time Seen by Provider: 12/16/16 16:00 Source: patient, EMS Limitations: no limitations Nursing Notes Reviewed: Yes Vital Signs Reviewed: Yes - History of Present Illness HPI Narrative: Patient is a 81-year-old female who was [facility] for declining hemoglobin values. She is on aspirin as well to help us last 2 days. Continue have a drop in her hemoglobin today they recorded a hemoglobin of 6.9 hematocrit 23.9 this is drop since December 03 hemoglobin was 8.8 hematocrit 28.8. The patient appears to have some mild dementia she is asymptomatic and no acute complaints Pain Scale: 0 - Related Data Home Medications Medication Instructions Recorded Confirmed Aspirin Enteric Coated [Aspirin EC] 81 mg PO QAM 04/26/15 12/16/16 Rivaroxaban [Xarelto] 15 mg PO QPM 04/26/15 12/16/16 SitaGLIPtin [Januvia] 25 mg PO DAILY 04/26/15 12/16/16 Insulin Glargine [Lantus] 30 unit SQ HS 06/17/15 12/16/16 Pravastatin Sodium [Pravachol] 80 mg PO QPM 01/06/16 12/16/16 Albuterol Sulfate [Albuterol 2 puff IH Q4HR PRN 04/06/16 12/16/16 Inhaler] Gabapentin [Neurontin] 300 mg PO TID 04/06/16 12/16/16 amLODIPine [Norvasc] 5 mg PO DAILY 04/06/16 12/16/16 Colestipol HCl [Colestid] 2 gm PO BID PRN 10/06/16 12/16/16 Ferrous Sulfate [Iron] 325 mg PO DAILY 10/06/16 12/16/16 Pantoprazole Sodium [Protonix] 40 mg PO DAILY 10/06/16 12/16/16 Carvedilol [Coreg] 25 mg PO BID 11/18/16 12/16/16 Ipratropium/Albuterol Neb [Duoneb] 3 ml IH Q6HR PRN 11/18/16 12/16/16 Oxygen 2 l NS CONT 11/18/16 12/16/16 Acetaminophen [Tylenol] 650 mg PO Q4H PRN 12/16/16 12/16/16 Albuterol Sulfate [Proair Hfa] 2 puff IH Q4H PRN 12/16/16 12/16/16 Dextromethorphan HBr/Quinidine 1 each PO BID 12/16/16 12/16/16 [Nuedexta 20-10 mg Capsule] Insulin ASPART [NovoLOG] 2 - 12 unit SQ ACHS 12/16/16 12/16/16 Loperamide HCl [Imodium A-D] 2 mg PO TID PRN 12/16/16 12/16/16 Previous Rx's Medication Instructions Recorded Ondansetron [Zofran] 8 mg PO Q8HR PRN #10 tablet 08/24/16 Isosorbide MONOnitrate (24 HR) 30 mg PO DAILY #30 tab.er.24h 10/07/16 [Imdur] Furosemide [Lasix] 40 mg PO DAILY tablet 11/23/16 Losartan [Cozaar] 50 mg PO BID tablet 11/23/16 Allergies Allergy/AdvReac Type Severity Reaction Status Date / Time Amoxicillin [From Augmentin] AdvReac Diarrhea Verified 06/17/15 19:53 ciprofloxacin [From Cipro] AdvReac Vomiting Verified 06/17/15 19:53 clavulanic acid AdvReac Diarrhea Verified 06/17/15 19:53 [From Augmentin] doxycycline AdvReac Diarrhea Verified 06/17/15 19:53 lansoprazole AdvReac Diarrhea Verified 06/17/15 19:53 Sulfa (Sulfonamide AdvReac Vomiting Verified 06/17/15 19:53 Antibiotics) sulfamethoxazole AdvReac Diarrhea Verified 06/17/15 19:53 [From Bactrim] trimethoprim AdvReac Diarrhea Verified 06/17/15 19:53 All systems ED: reviewed and negative except as stated. Constitutional: Denies: fever, chills, weakness Gastrointestinal: Denies: nausea, vomiting, melena, hematochezia Past Medical History - Past Medical History Source: old records reviewed, obtained from family, nursing notes reviewed Medical history: Reports: atrial fibrillation, CHF, COPD, coronary artery disease, dementia, diabetes, hypertension Surgical history: Reports: coronary bypass (CABG) Psychiatric history: Reports: anxiety, bipolar, depression CAMP DISHWASHER history: Reports: no CAMP DISHWASHER history - Social History Smoking Status: Never smoker Smokeless Tobacco Status: No Alcohol use: Reports: none Drug use: Reports: none Physical Exam - General Limitations: no limitations General appearance: alert, in no apparent distress - Head Head exam: atraumatic, normocephalic, normal inspection - Eye Eye exam: Present: normal appearance, PERRL, EOMI - ENT ENT exam: normal exam, normal oropharynx, mucous membranes moist - Neck Neck exam: Present: normal inspection, full ROM, trachea midline - Chest Chest inspection: Present: normal inspection, symmetric chest wall rise - Respiratory Respiratory exam: Present: normal lung sounds bilaterally - Cardiovascular Cardiovascular exam: Present: regular rate, normal rhythm, normal heart sounds - Abdominal Exam Abdominal exam: Present: soft, Non-Tender. Absent: tenderness, distention, guarding, rebound, rigidity - Rectal Exam Rectal exam: Present: normal rectal tone, hemorrhoids (ext ). Absent: black stool, bloody stool, fecal impaction - Neurological Exam Neurological exam: Present: alert. Absent: oriented X3 (person and place) - Psychiatric Psychiatric exam: Present: normal affect, normal mood - Skin Skin exam: Present: warm, dry, intact, normal color Course Vital Signs Temperature 98 F 12/16/16 15:57 Pulse Rate 95 12/16/16 15:57 Respiratory Rate 16 12/16/16 15:57 Blood Pressure 128/72 12/16/16 15:57 O2 Sat by Pulse Oximetry 92 12/16/16 15:57 Temperature 98 F 12/16/16 15:57 Pulse Rate 102 12/16/16 19:36 Respiratory Rate 18 12/16/16 19:36 Blood Pressure 128/104 12/16/16 19:36 O2 Sat by Pulse Oximetry 91 12/16/16 19:36 Oxygen Delivery Oxygen Delivery Nasal Cannula Medical Decision Making - Medical Records Medical records reviewed: Yes I reviewed the patient's medical records. - Lab Data Lab results reviewed: Yes I reviewed the patient's lab results. Result diagrams: 12/16/16 16:24 12/16/16 16:24 Lab Results 12/16/16 12/16/16 12/16/16 Range/Units 16:24 16:24 16:24 WBC 8.4 (4.3-11.1) K/mcL RBC 2.70 L (3.82-4.97) M/mcL Hgb 7.6 L (11.5-15.4) g/dL Hct 25.5 L (35.3-44.9) % MCV 94.4 (83.0-100.0) fL MCH 28.1 (28.0-33.3) pg MCHC 29.8 L (31.6-35.5) g/dL RDW 15.6 H (11.5-14.5) % Plt Count 170 (140-400) K/mcL MPV 11.0 (9.4-12.4) fL Immature Gran % 1.1 (0-4) % Seg Neutrophils % 80.4 % Lymphocytes % 10.4 % Monocytes % 5.6 % Eosinophils % 2.3 % Basophils % 0.2 % Neutrophils # 6.7 (1.6-8.9) K/mcL Lymphocytes # 0.9 (0.6-4.6) K/mcL Monocytes # 0.5 (0.0-1.3) K/mcL Eosinophils # 0.2 (0.0-0.6) K/mcL Basophils # 0.0 (0.0-0.2) K/mcL PT 17.0 H (9.4-12.1) Seconds INR 1.6 APTT 34.2 (26.0-36.0) Seconds Sodium 139 (136-145) mEq/L Potassium 4.4 (3.5-4.5) mEq/L Chloride 100 (98-109) mEq/L Carbon Dioxide 31 H (19-29) mEq/L BUN 38 H (7-20) mg/dL Creatinine 1.93 H (0.57-1.11) mg/dL Est GFR ( Amer) 30 L (> 60) Est GFR (Non-Af Amer) 25 L (> 60) BUN/Creatinine Ratio 20 (6-26) Glucose 186 H (70-99) mg/dL Calculated Osmolality 302 H (280-300) Calcium 8.7 (8.6-10.8) mg/dL Iron 39 L (50-170) mcg/dL % Saturation 10 L (15-50) % Transferrin 273 (180-382) mg/dL Stool Occult Blood (Negative) Blood Type Antibody Screen 12/16/16 12/16/16 Range/Units 16:24 17:35 WBC (4.3-11.1) K/mcL RBC (3.82-4.97) M/mcL Hgb (11.5-15.4) g/dL Hct (35.3-44.9) % MCV (83.0-100.0) fL MCH (28.0-33.3) pg MCHC (31.6-35.5) g/dL RDW (11.5-14.5) % Plt Count (140-400) K/mcL MPV (9.4-12.4) fL Immature Gran % (0-4) % Seg Neutrophils % % Lymphocytes % % Monocytes % % Eosinophils % % Basophils % % Neutrophils # (1.6-8.9) K/mcL Lymphocytes # (0.6-4.6) K/mcL Monocytes # (0.0-1.3) K/mcL Eosinophils # (0.0-0.6) K/mcL Basophils # (0.0-0.2) K/mcL PT (9.4-12.1) Seconds INR APTT (26.0-36.0) Seconds Sodium (136-145) mEq/L Potassium (3.5-4.5) mEq/L Chloride (98-109) mEq/L Carbon Dioxide (19-29) mEq/L BUN (7-20) mg/dL Creatinine (0.57-1.11) mg/dL Est GFR ( Amer) (> 60) Est GFR (Non-Af Amer) (> 60) BUN/Creatinine Ratio (6-26) Glucose (70-99) mg/dL Calculated Osmolality (280-300) Calcium (8.6-10.8) mg/dL Iron (50-170) mcg/dL % Saturation (15-50) % Transferrin (180-382) mg/dL Stool Occult Blood Negative (Negative) Blood Type A POSITIVE Antibody Screen NEGATIVE
[2016-12-16] MEDS ORDERED: Haloperidol Lactate 5 MG/ML VIAL IVP ONE (18:49)
[2016-12-16] MEDS ORDERED: Naloxone 0.4 MG/ML INJ IVP PRN (20:53)
[2016-12-16] MEDS ORDERED: COLESTIPOL 2 GM PO PRN (20:56)
[2016-12-16] MEDS ORDERED: Ipratropium/Albuterol Neb 3 ML IH PRN (20:56)
[2016-12-16] MEDS ORDERED: NON-FORMULARY MEDICATION 1 EACH EACH (Insulin Glargine [Lantus] 30 UNIT) SQ SCH (21:00)
[2016-12-16] MEDS ORDERED: *HR* Dextrose 50 % in Water (Syg) 50 ML SYRINGE IVP PRN (21:01)
[2016-12-16] MEDS ORDERED: D5% in Water 1,000 ML IVC PRN (21:01)
[2016-12-16] MEDS ORDERED: Dextrose Gel 15 GM PO PRN ×2 (21:01)
[2016-12-16] MEDS ORDERED: Insulin DETEMIR 100 UNIT/ML X5UNITS SQ SCH (21:30)
[2016-12-16] MEDS ORDERED: 0.9 % Sodium Chloride 250 ML ONE (21:35)
--- NOTE | 2016-12-16 21:40 | Internal Med History&Physical ---
Date of Encounter: 12/16/16 Time of Encounter: 21:00 Assessment and Plan (1) Anemia Current visit: Yes Status: Acute 1 . Patient's hemoglobin is 7.6 which is down from last month 1.3. No active bleeding noted. Patient does have a past history of iron deficiency anemia as well as CK D which could be intervening factors. We will obtain anemia workup as well as obtain a Hemoccult and urinalysis to rule out hematuria in a.m. 2 we will monitor hemoglobin and transfuse if hemoglobin less than 7 3 we will consult hemoncology as needed Qualifiers: Anemia type: unspecified type Qualified Code(s): D64.9 - Anemia, unspecified (2) Permanent atrial fibrillation Current visit: No Status: Acute 1 patient is on Cymbalta as well as taking aspirin. We will hold these for now due to anemia. will reevaluate once workup complete, (3) CKD (chronic kidney disease) stage 3, GFR 30-59 ml/min Current visit: No Status: Chronic 1 creatinine was 1.9. Appears baseline between 1.6 to we will continue to monitor creatinine 2 avoid nephrotoxins 3 monitor intake and output daily weights (4) Congestive heart failure with cardiomyopathy Current visit: No Status: Chronic 1 EF 45% per last echo. We will continue with diuretics as well as beta shelia 2 low sodium diet 3 monitor intake and output daily weights (5) Diabetes mellitus type 2, insulin dependent Current visit: No Status: Chronic 1. Accu-Cheks before meals and at bedtime sliding scale insulin as well as basal insulin 2 diabetic diet (6) DVT prophylaxis Current visit: No Status: Acute SCD Internal Medicine - H&P: HPI Chief complaint: Anemia Admitted From: Emergency Dept Plans for Post Hospital Care: Transfer Assisted Facility History of present illness: Ms. Low is a 81 year old female past month history of itchy fibrillation congestive heart failure COPD coronary disease diabetes hypertension dementia. Due to patient's mental state information obtained from medical records. According to medical records [facility] and had recent check of CBC which did reveal a drop in hemoglobin 6.3 which is down from last month 9.5. Patient is on aspirin ends around to there is no documentation of any active bleeding, melena hematochezia or hematemesis. She was brought to the ER for evaluation. According to records hemoglobin 7.6 GFR is 25 BUN 38 creatinine 1.93 stool occult was negative. She is hemodynamically stable she has been admitted for further workup and evaluation. Presently patient is alert oriented to name and place only. She does follow some commands she denies any chest pain or abdominal pain. Review of records did not reveal any recent colonoscopy or EGD. Lung sounds with crackles in bases bilaterally heart sounds S1-S2 with no rubs gallops or clicks murmurs noted patient does have +1 pitting edema to lower extremity is bilaterally she is hemodynamically stable at this time. I reviewed this case with Dr. Gill who agrees with plan Past Med Surg Social Fam HX - Past Medical History Medical history: atrial fibrillation, CHF, COPD, coronary artery disease, dementia, diabetes, hypertension Psychiatric history: anxiety, bipolar, depression - Past Surgical History Surgical History: coronary bypass (CABG) - Social History Smoking Status: Never smoker Smokeless Tobacco Status: No Alcohol use: none Drug use: none - Family History Paternal Hx Family Cardiac Disorders: Yes (HTN, DE,) Hx Family Respiratory Disorders: No Hx Family Cancer: Yes Hx Family GI Disorders: No Hx Family Endocrine Disorder: Yes (DM) Hx Family Neuromuscular Disorders: No Hx Family Neurologic Disorders: No Hx Family HEENT Disorders: No Hx Family Autoimmune Disorders: No Internal Medicine - H&P: Meds Aspirin Enteric Coated [Aspirin EC] 81 mg PO QAM 04/26/15 [History] Rivaroxaban [Xarelto] 15 mg PO QPM 04/26/15 [History] SitaGLIPtin [Januvia] 25 mg PO DAILY 04/26/15 [History] Insulin Glargine [Lantus] 30 unit SQ HS 06/17/15 [History] Pravastatin Sodium [Pravachol] 80 mg PO QPM 01/06/16 [History] Albuterol Sulfate [Albuterol Inhaler] 2 puff IH Q4HR PRN 04/06/16 [History] Gabapentin [Neurontin] 300 mg PO TID 04/06/16 [History] amLODIPine [Norvasc] 5 mg PO DAILY 04/06/16 [History] Ondansetron [Zofran] 8 mg PO Q8HR PRN #10 tablet 08/24/16 [Rx] Colestipol HCl [Colestid] 2 gm PO BID PRN 10/06/16 [History] Ferrous Sulfate [Iron] 325 mg PO DAILY 10/06/16 [History] Pantoprazole Sodium [Protonix] 40 mg PO DAILY 10/06/16 [History] Isosorbide MONOnitrate (24 HR) [Imdur] 30 mg PO DAILY #30 tab.er.24h 10/07/16 [ Rx] Carvedilol [Coreg] 25 mg PO BID 11/18/16 [History] Ipratropium/Albuterol Neb [Duoneb] 3 ml IH Q6HR PRN 11/18/16 [History] Oxygen 2 l NS CONT 11/18/16 [History] Furosemide [Lasix] 40 mg PO DAILY tablet 11/23/16 [Rx] Losartan [Cozaar] 50 mg PO BID tablet 11/23/16 [Rx] Acetaminophen [Tylenol] 650 mg PO Q4H PRN 12/16/16 [History] Albuterol Sulfate [Proair Hfa] 2 puff IH Q4H PRN 12/16/16 [History] Dextromethorphan HBr/Quinidine [Nuedexta 20-10 mg Capsule] 1 each PO BID [History] Insulin ASPART [NovoLOG] 2 - 12 unit SQ ACHS 12/16/16 [History] Loperamide HCl [Imodium A-D] 2 mg PO TID PRN 12/16/16 [History] Allergies Amoxicillin [From Augmentin] Adverse Reaction (Verified 06/17/15 19:53) Diarrhea ciprofloxacin [From Cipro] Adverse Reaction (Verified 06/17/15 19:53) Vomiting clavulanic acid [From Augmentin] Adverse Reaction (Verified 06/17/15 19:53) Diarrhea doxycycline Adverse Reaction (Verified 06/17/15 19:53) Diarrhea lansoprazole Adverse Reaction (Verified 06/17/15 19:53) Diarrhea Sulfa (Sulfonamide Antibiotics) Adverse Reaction (Verified 06/17/15 19:53) Vomiting sulfamethoxazole [From Bactrim] Adverse Reaction (Verified 06/17/15 19:53) Diarrhea trimethoprim Adverse Reaction (Verified 06/17/15 19:53) Diarrhea ROS unobtainable: due to mental status All Systems PM: A 10-system review of systems was performed and is negative for pertinent findings except as documented above in the HPI. - Constitutional Vitals: Temp Pulse Resp BP Pulse Ox 98.3 F 115 14 129/81 95 12/16/16 21:11 12/16/16 21:11 12/16/16 21:11 12/16/16 21:11 12/16/16 21:11 General appearance: Present: A&O X 2 - Head Head exam: Present: atraumatic, normocephalic - Eye Eye exam: Present: PERRL, conjuntiva pink, sclera anicteric Pupils: Present: PERRL - Neck Neck exam general surgery: Present: supple, trachea midline. Absent: lymphadenopathy - Respiratory Respiratory exam: Present: rales. Absent: accessory muscle use, rhonchi, wheezes - Cardiovascular Cardiovascular exam: Present: RRR, +S1, +S2. Absent: diastolic murmur, gallop, rubs, systolic murmur - GI/Abdominal GI/Abdominal exam: Present: normal bowel sounds, soft, no peritoneal signs. Absent: distended, tenderness - Extremities Exam Extremities exam: Present: warm, radial pulses palpable and symetrical. Absent : calf tenderness, cyanotic, pedal edema - Neurological Exam Neurological exam: Present: CN II-XII intact, oriented X3, no focal deficits. Absent: pronater drift, facial droop, speech deficit - Skin Skin exam: Present: dry, intact Internal Med - H&P Results - Labs CBC & Chem 7: 12/16/16 16:24 12/16/16 16:24
[2016-12-16] MEDS: Gabapentin 300 MG CAPSULE PO SCH (21:50)
[2016-12-17 06:26] LABS: Calcium 8.7 mg/dL (8.6-10.8); Potassium 4.3 mEq/L (3.5-4.5)
[2016-12-17 06:52] LABS: Basophils % 0.5 %; Eosinophils # 0.2 K/mcL (0.0-0.6); Eosinophils % 1.9 %; Hematocrit 27.7 % (35.3-44.9); Hemoglobin 8.4 g/dL (11.5-15.4); Immature Granulocytes % 0.8 % (0-4); Lymphocytes % 11.3 %; Mean Corpuscular HGB Conc 30.3 g/dL (31.6-35.5); Mean Corpuscular Hemoglobin 28.2 pg (28.0-33.3); Mean Platelet Volume 11.5 fL (9.4-12.4); Monocytes # 0.6 K/mcL (0.0-1.3); Monocytes % 6.9 %; Neutrophils # 6.9 K/mcL (1.6-8.9); Platelet Count 164 K/mcL (140-400); Red Blood Count 2.98 M/mcL (3.82-4.97); Red Cell Distribution Width 15.9 % (11.5-14.5); Segmented Neutrophils % 78.6 %
[2016-12-17 07:10] LABS: Folate 11.8 ng/mL (7.0-31.4)
[2016-12-17] MEDS: Insulin LISPRO 300 UNITS/3 ML VIAL SQ SCH ×2 (08:36→12:57)
[2016-12-17] MEDS ORDERED: amLODIPine 5 MG TABLET PO SCH (09:00)
[2016-12-17] MEDS ORDERED: Furosemide 40 MG TABLET PO SCH (09:00)
[2016-12-17] MEDS ORDERED: Isosorbide MONOnitrate (24 HR) 30 MG TAB.ER.24H PO SCH (09:00)
[2016-12-17] MEDS ORDERED: Aspirin Enteric Coated 81 MG Tablet PO SCH (09:00)
[2016-12-17] MEDS: Gabapentin 300 MG CAPSULE PO SCH (09:37)
--- NOTE | 2016-12-17 10:14 | Discharge Summary ---
Date of Encounter: 12/17/16 Time of Encounter: 10:13 - Discharge Diagnosis (1) Anemia Priority: Primary Status: Acute Qualifiers: Anemia type: iron deficiency Iron deficiency anemia type: unspecified iron deficiency Qualified Code(s): D50.9 - Iron deficiency anemia, unspecified (2) CHF (congestive heart failure) Priority: Secondary Status: Chronic Qualifiers: Congestive heart failure type: combined Congestive heart failure chronicity : acute on chronic Qualified Code(s): I50.43 - Acute on chronic combined systolic (congestive) and diastolic (congestive) heart failure (3) Atrial fibrillation Priority: Secondary Status: Chronic Qualifiers: Atrial fibrillation type: permanent Qualified Code(s): I48.2 - Chronic atrial fibrillation (4) CKD (chronic kidney disease) stage 3, GFR 30-59 ml/min Priority: Secondary Status: Chronic (5) Congestive heart failure with cardiomyopathy Priority: Secondary Status: Chronic (6) Diabetes Priority: Secondary Status: Chronic Qualifiers: Diabetes mellitus type: type 2 Diabetes mellitus complication status: with unspecified complications Diabetes mellitus mcfp insulin use: unspecified mcfp insulin use status Qualified Code(s): E11.8 - Type 2 diabetes mellitus with unspecified complications (7) Obesity Priority: Secondary Status: Chronic Qualifiers: Obesity type: unspecified obesity type Obesity severity: unspecified obesity severity Qualified Code(s): E66.9 - Obesity, unspecified - Discharge Medications Prescriptions: Ferrous Sulfate 325 mg PO BIDWM #60 tablet Home Medications: Aspirin Enteric Coated [Aspirin EC] 81 mg PO QAM 04/26/15 [History] Rivaroxaban [Xarelto] 15 mg PO QPM 04/26/15 [History] SitaGLIPtin [Januvia] 25 mg PO DAILY 04/26/15 [History] Insulin Glargine [Lantus] 30 unit SQ HS 06/17/15 [History] Pravastatin Sodium [Pravachol] 80 mg PO QPM 01/06/16 [History] Albuterol Sulfate [Albuterol Inhaler] 2 puff IH Q4HR PRN 04/06/16 [History] Gabapentin [Neurontin] 300 mg PO TID 04/06/16 [History] amLODIPine [Norvasc] 5 mg PO DAILY 04/06/16 [History] Ondansetron [Zofran] 8 mg PO Q8HR PRN #10 tablet 08/24/16 [Rx] Colestipol HCl [Colestid] 2 gm PO BID PRN 10/06/16 [History] Ferrous Sulfate [Iron] 325 mg PO DAILY 10/06/16 [History] Pantoprazole Sodium [Protonix] 40 mg PO DAILY 10/06/16 [History] Isosorbide MONOnitrate (24 HR) [Imdur] 30 mg PO DAILY #30 tab.er.24h 10/07/16 [ Rx] Carvedilol [Coreg] 25 mg PO BID 11/18/16 [History] Ipratropium/Albuterol Neb [Duoneb] 3 ml IH Q6HR PRN 11/18/16 [History] Oxygen 2 l NS CONT 11/18/16 [History] Furosemide [Lasix] 40 mg PO DAILY tablet 11/23/16 [Rx] Losartan [Cozaar] 50 mg PO BID tablet 11/23/16 [Rx] Acetaminophen [Tylenol] 650 mg PO Q4H PRN 12/16/16 [History] Albuterol Sulfate [Proair Hfa] 2 puff IH Q4H PRN 12/16/16 [History] Dextromethorphan HBr/Quinidine [Nuedexta 20-10 mg Capsule] 1 each PO BID [History] Insulin ASPART [NovoLOG] 2 - 12 unit SQ ACHS 12/16/16 [History] Loperamide HCl [Imodium A-D] 2 mg PO TID PRN 12/16/16 [History] Docusate [Colace] 100 mg PO BID capsule 12/17/16 [Rx] Ferrous Sulfate 325 mg PO BIDWM #60 tablet 12/17/16 [Rx] Allergies/Adverse Reactions: Allergies Amoxicillin [From Augmentin] Adverse Reaction (Verified 06/17/15 19:53) Diarrhea ciprofloxacin [From Cipro] Adverse Reaction (Verified 06/17/15 19:53) Vomiting clavulanic acid [From Augmentin] Adverse Reaction (Verified 06/17/15 19:53) Diarrhea doxycycline Adverse Reaction (Verified 06/17/15 19:53) Diarrhea lansoprazole Adverse Reaction (Verified 06/17/15 19:53) Diarrhea Sulfa (Sulfonamide Antibiotics) Adverse Reaction (Verified 06/17/15 19:53) Vomiting sulfamethoxazole [From Bactrim] Adverse Reaction (Verified 06/17/15 19:53) Diarrhea trimethoprim Adverse Reaction (Verified 06/17/15 19:53) Diarrhea Date of admission: 12/16/16 20:25 Primary care physician: PCP NO Consults: 12/16/16 21:50 Consult to Nutrition [CONS] Routine Comment: Consulting Provider: NUTRITION Reason for Dietary Consult: Other Discharging clinician: Mitesh Quigley Anticipated date of discharge: 12/17/16 - Patient Status Disposition: Transfer SNF Condition: Fair Functional capacity at discharge: independent ambulation Overall status at discharge: patient is progressing back to baseline - Discharge Instructions Follow Up With: NO,PCP [Primary Care Provider] - - Diet and Activity Activity: resume usual activities as tolerated Diet: diabetic diet, low fat, low cholesterol, low salt diet Interval History: Ms. Low is a 81 year old female PMH of Afib on Xarelto, CHF, COPD, DM, HTN, CAD, Obesity, Dementia, resident of SNF. According to medical records resides in the [facility] and had recent check of CBC which did reveal a drop in hemoglobin 6.3 which is down from last month 9.5. Patient is on aspirin ends around to there is no documentation of any active bleeding, melena hematochezia or hematemesis. She was brought to the ER for evaluation. According to records hemoglobin 7.6 GFR is 25 BUN 38 creatinine 1.93 stool occult was negative. She is hemodynamically stable she was admitted to observation for further workup and evaluation. Presently patient is alert oriented to name and place only. Patient remained hemodynamically stable, she had one unit of RBC transfused and anemia work up revealed iron deficiency patient may also have a component of anemia of chronic disease There is no obvious source of bleeding FOBT is negative Hb is stable at 8.4, chemistry shows creatinine at baseline Patient is clinically stable at this time and there is no current indication in this hospitalization for EGD or Endoscopy Patient is pleasantly confused, plan of care discussed with team Stable to return to SNF with resumption of home meds, benefits of continuation of Xarelto outweigh the risks of bleeding at this time. Hospital course: Ms. Low is a 81 year old female - Time Spent with Patient Total time spent providing and/or coordinating discharge services: Less than 30 minutes - Constitutional Vitals: Temp Pulse Resp BP Pulse Ox 97.4 F L 105 18 113/76 93 12/17/16 07:34 12/17/16 07:34 12/17/16 07:34 12/17/16 07:34 12/17/16 07:34 General appearance: Present: A&O X 2, pleasant, no acute distress, obese - Head Head exam: Present: atraumatic, normocephalic - Eye Eye exam: Present: PERRL, conjuntiva pink, sclera anicteric Pupils: Present: PERRL - Neck Neck exam general surgery: Present: supple, trachea midline. Absent: lymphadenopathy - Respiratory Respiratory exam: Present: CTAB. Absent: accessory muscle use, rales, rhonchi, wheezes - Cardiovascular Cardiovascular exam: Present: RRR, +S1, +S2. Absent: diastolic murmur, gallop, rubs, systolic murmur - GI/Abdominal GI/Abdominal exam: Present: normal bowel sounds, soft, no peritoneal signs. Absent: distended, tenderness - Extremities Exam Extremities exam: Present: pedal edema (trace pitting pedal edema, chronic venous stasis changes. s/p L MTA), warm, radial pulses palpable and symetrical. Absent: calf tenderness, cyanotic - Neurological Exam Neurological exam: Present: alert, CN II-XII intact, no focal deficits. Absent : oriented X3, pronater drift, facial droop, speech deficit - Skin Skin exam: Present: dry, intact
[2016-12-17 11:40] VITALS: BP 95/53
--- NOTE | 2016-12-17 12:36 | Physician Discharge Referral ---
ExtendedCare Referral Info Transfer To: [facility] Provider in Charge: Dr. Quigley Provider in Charge after Transfer: PCP Institutional Level of Care: Skilled - Diagnosis (1) Anemia Priority: Primary Status: Acute (2) Atrial fibrillation Priority: Secondary Status: Chronic (3) Diabetes Priority: Secondary Status: Chronic (4) CKD (chronic kidney disease) stage 3, GFR 30-59 ml/min Priority: Secondary Status: Chronic (5) CAD (coronary artery disease) Priority: Secondary Status: Chronic (6) CHF (congestive heart failure) Priority: Secondary Status: Acute (7) Obesity Priority: Secondary Status: Chronic Prognosis: Fair Aware of Diagnosis: Patient Aware of Prognosis: Patient - Transfer Medications Prescriptions: Ferrous Sulfate 325 mg PO BIDWM #60 tablet Home Medications: Aspirin Enteric Coated [Aspirin EC] 81 mg PO QAM 04/26/15 [History] Rivaroxaban [Xarelto] 15 mg PO QPM 04/26/15 [History] SitaGLIPtin [Januvia] 25 mg PO DAILY 04/26/15 [History] Insulin Glargine [Lantus] 30 unit SQ HS 06/17/15 [History] Pravastatin Sodium [Pravachol] 80 mg PO QPM 01/06/16 [History] Albuterol Sulfate [Albuterol Inhaler] 2 puff IH Q4HR PRN 04/06/16 [History] Gabapentin [Neurontin] 300 mg PO TID 04/06/16 [History] amLODIPine [Norvasc] 5 mg PO DAILY 04/06/16 [History] Ondansetron [Zofran] 8 mg PO Q8HR PRN #10 tablet 08/24/16 [Rx] Colestipol HCl [Colestid] 2 gm PO BID PRN 10/06/16 [History] Ferrous Sulfate [Iron] 325 mg PO DAILY 10/06/16 [History] Pantoprazole Sodium [Protonix] 40 mg PO DAILY 10/06/16 [History] Isosorbide MONOnitrate (24 HR) [Imdur] 30 mg PO DAILY #30 tab.er.24h 10/07/16 [ Rx] Carvedilol [Coreg] 25 mg PO BID 11/18/16 [History] Ipratropium/Albuterol Neb [Duoneb] 3 ml IH Q6HR PRN 11/18/16 [History] Oxygen 2 l NS CONT 04/19/17 [History] Furosemide [Lasix] 40 mg PO DAILY tablet 11/23/16 [Rx] Losartan [Cozaar] 50 mg PO BID tablet 11/23/16 [Rx] Acetaminophen [Tylenol] 650 mg PO Q4H PRN 12/16/16 [History] Albuterol Sulfate [Proair Hfa] 2 puff IH Q4H PRN 12/16/16 [History] Dextromethorphan HBr/Quinidine [Nuedexta 20-10 mg Capsule] 1 each PO BID [History] Insulin ASPART [NovoLOG] 2 - 12 unit SQ ACHS 12/16/16 [History] Loperamide HCl [Imodium A-D] 2 mg PO TID PRN 12/16/16 [History] Docusate [Colace] 100 mg PO BID capsule 12/17/16 [Rx] Ferrous Sulfate 325 mg PO BIDWM #60 tablet 12/17/16 [Rx] Allergies/Adverse Reactions: Allergies Amoxicillin [From Augmentin] Adverse Reaction (Verified 06/17/15 19:53) Diarrhea ciprofloxacin [From Cipro] Adverse Reaction (Verified 06/17/15 19:53) Vomiting clavulanic acid [From Augmentin] Adverse Reaction (Verified 06/17/15 19:53) Diarrhea doxycycline Adverse Reaction (Verified 06/17/15 19:53) Diarrhea lansoprazole Adverse Reaction (Verified 06/17/15 19:53) Diarrhea Sulfa (Sulfonamide Antibiotics) Adverse Reaction (Verified 06/17/15 19:53) Vomiting sulfamethoxazole [From Bactrim] Adverse Reaction (Verified 06/17/15 19:53) Diarrhea trimethoprim Adverse Reaction (Verified 06/17/15 19:53) Diarrhea - Respiratory Orders Oxygen / L per min Smoking Cessation: Smoking cessation has been advised. For more information, call the [employer] Tobacco Quit Line at 1-249-SBDY-NOW. - Advance Directives Code Status: DNR-Arrest/Don't Intubate - Mobility Orders Ambulate - Rehabiliation Orders Rehab Potential: Fair - Diet Orders No Concentrated Sweets, Cardiac CERTIFICATION: I certify that the transfer of the above named patient to an Extended Care Facility is necessary for the continuing treatment of the diagnosis listed. The above information is true and accurate reflection of patient's current condition. Confidential - Redisclosure prohibited without a patient's written consent.
[2016-12-17] MEDS ORDERED: *HR* Rivaroxaban 15 MG TABLET PO SCH (17:00)
--- NOTE | 2016-12-17 18:38 | Electrocardiograph Report ---
[address] [place], [place] [address] Test Date: 2016-12-16 Pat Name: Narda Low Department: 102 Room: 3A31 Gender: F [employer]: : [id number] Requested By: Immanuel Aguirre Order Number: [id number] Reading MD: Cornelius Amaya MD Measurements Intervals [place] Rate: 89 P: AK: 0 QRS: 25 QRSD: 101 T: 146 QT: 354 QTc: 401 Interpretive Statements ATRIAL FIBRILLATION Poor R wave progression Electronically Signed On 12-17-2016 18:36:54 EDT by Cornelius Amaya MD
[2016-12-17] MEDS ORDERED: Insulin LISPRO 300 UNITS/3 ML VIAL SQ SCH (21:00)
== END 2016-12-17 14:34 ==
LOC: EMEROO 15:55 → 3ANU 15:55
PROVIDERS: ADMIT Nurse Practitioner Acute Care; ATTEND Internal Medicine